=== PATIENT | female | born 1935 | race Caucasian/White ===

== ENCOUNTER 2020-02-25 13:42 | Outpatient (CLI) | payer MEDICARE, SELFPAY ==
--- NOTE | 2020-02-25 13:51 | USCV_ITS ---
Rebeka Anderson Age: 84 Gender: F : 1935 Exam Date: 02/25/2020 14:07 Ordering Phys: Arvin Lai MD (Andy) ([email or web address] [email or web address] Technologist: Rojas Escobar Exam Location: [facility] [place] Indication: CAROTID STENOSIS Risk Factors: Previous Vascular Surgery: R CEA Right Brachial BP: / Left Brachial BP: / Right Left Velocity (cm/s) Spectral Plaque Velocity (cm/s) Spectral Plaque Syst/Diast Broadening Syst/Diast Broadening 83.10/ 4.70 Prox CCA 93.70 / 14.30 108.80/15.00 Mid CCA 150.70/ 14.00 125.70/8.80 Distal CCA 98.60 / 14.50 186.40/28.00 Prox ICA 103.90/ 14.50 132.10/20.20 Mid ICA 123.60/ 28.90 108.80/17.10 Distal ICA 64.00 / 14.90 140.00 ECA 113.10 1.21 ICA/CCA 0.82 Retrograde Vertebral Antegrade 30.90/ 14.30 cm/s 80.20/ 21.00 cm/s Bi Subclavian Bi 223.1 176.2 0 0 CONCLUSIONS Right ICA stenosis 50-69%. Moderate atheromatous plaque right carotid bulb/ICA. Left ICA stenosis <50%. Mild atheromatous plaque left carotid bulb/ICA. 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 Luis Segura MD (Electronically Signed) Final Date: 25 February 2020 15:27 S
== END 2020-02-25 13:43 | disposition home or self-care (01) ==
LOC: US 13:43
PROVIDERS: PCP Family Medicine; Visit Provider Thoracic Surgery (Cardiothoracic Vascular Surgery)
DX: I65.23 Occlusion and stenosis of bilateral carotid arteries (principal)
CPT/HCPCS: 93880

== ENCOUNTER 2020-10-22 16:47 | Emergency (ER) | payer MEDICARE, SELFPAY ==
[2020-10-22 16:48] VITALS: BP 191/80; PULSE 72; RESP 18; TEMP 36.8; O2SAT 95; BMI 40.6
--- NOTE | 2020-10-22 17:11 | W.ED.FALL ---
HPI - Fall General: Chief Complaint: Fall Stated Complaint: fall/ hallucinating Time Seen by Provider: 10/22/20 17:11 History of Present Illness: HPI Narrative: Patient is a 85-year-old female comes to the ED via EMS after having a fall. Patient's granddaughter is present in the ED room and helping provide history. Granddaughter says that she came to her house today and found her down on the floor. Patient states that she fell in the bathroom and is unsure on what time today she fell. She says what caused her fall was standing up too quickly and then she lost her balance. She says she has had this happen to her in the past. Granddaughter stated that she talk to patient on Tuesday evening her fall had 2 of occurred sometime after that. She states that today while she was laying on the floor a contractor hired by her landlord came in and cleaned her river and carpets and ignored her and did not help her. granddaughter doubts that this actually occurred and thinks she was having some hallucinations while laying on the floor. Patient is unsure if she hit her head or lost any consciousness. She does complain of having some neck pain and lower back pain and left hip pain. Patient lives at home alone in a duplex and uses a walker or cane to ambulate. Associated symptoms-after fall: Reports neck pain; Denies abdominal pain, chest pain, headache(s) or hematuria Review of Systems Const: Denies: fever(s), chills or fatigue Eyes: Denies: change in vision or eye discomfort ENMT: Denies: throat pain, odynophagia, nasal discharge or nasal congestion Card: Denies: chest pain, palpitations, edema, swelling of feet/ankles, dyspnea on exertion or orthopnea Resp: Denies: dyspnea, productive cough or non-productive cough GI: Denies: abdominal pain, nausea, vomiting, diarrhea, constipation or hematochezia : Denies: flank pain, dysuria or hematuria Musc: Reports: neck pain, back pain and extremity pain (left hip pain); Denies: extremity swelling Skin/Breast: Denies: rash or new lesions Neuro: Denies: headache(s), numbness in extremities or weakness in extremities PFS ED PFSH: Medical History Carotid stenosis Family History Mother Hypertension Social History Smoking and tobacco status: former smoker Alcohol intake: never Physical Exam Const: COMMON NORMALS: no acute distress, patient oriented x3 and alert GENERAL APPEARANCE: cooperative and comfortable HENMT: COMMON NORMALS: normocephalic HEAD & SCALP: normocephalic; no Quesada's sign and no raccoon eyes MOUTH: Normal oral and palatal mucosa present THROAT: posterior oropharynx normal and uvula midline Eye: COMMON NORMALS: Equal, round and reactive pupils present and EOMs intact bilaterally PUPIL: Yes Equal, round and reactive pupils present Neck/C-Spine: COMMON NORMALS: supple GENERAL: Yes normal visual inspection CERVICAL SPINE: Yes pain with cervical ROM Resp: COMMON NORMALS: normal respiratory effort, No retractions, No use of accessory muscles and clear to auscultation bilaterally AUSCULTATION: clear to auscultation bilaterally Cardio: COMMON NORMALS: regular rate, regular rhythm, S1 normal heart sound present, S2 normal heart sound present, No gallops present (Cardio), No clicks present (Cardio), No murmurs present (Cardio) and Peripheral pulses 2+ throughout RATE: regular rate RHYTHM: regular rhythm HEART SOUNDS: S1 normal heart sound present and S2 normal heart sound present PERIPHERAL PULSES: Peripheral pulses 2+ throughout GI: COMMON NORMALS: Normal to inspection, nondistended, normoactive bowel sounds present, Soft to palpation, non-tender and no masses PALPATION: Yes Soft to palpation : COMMON NORMALS: Yes no CVA tenderness BLADDER/KIDNEY EXAM: Yes no CVA tenderness Back/Pelvis: COMMON NORMALS: no CVA tenderness Extremity: COMMON NORMALS: normal to inspection Neuro: KARYN COMA SCALE: document GCS findings Karyn coma scale eye opening: Spontaneous Cavour coma scale verbal response: Orientated Cavour coma scale motor response: Obey commands Cavour coma scale total score: 15 COMMON NORMALS: patient oriented x3, CN's II-XII intact bilaterally, moves all extremities, no focal motor deficits and no sensory deficits noted SENSORIUM/ORIENTATION: Yes alert OTHER: Patient able to answer all my orientation questions correctly and appears to be at her normal mental state. Skin: GENERAL SKIN EXAM: dry skin Course ED course: Patient's granddaughter is concerned a little for patient's mental status. Patient is alert and oriented x3 and will answer questions accordingly but has some moments of hallucination type comments. Granddaughter said that she or another family member will be with patient [id number] after discharged from the ED to help take care of her. Granddaughter did say patient has had some memory issues and is unsure if she has any sundowner type symptoms recently because she usually does not see patient in the evenings or at night and usually visits patient during the day. Vital Signs: Vital signs: Vital Signs Temperature 98.2 F 10/22/20 16:48 Pulse Rate 90 10/22/20 22:36 Respiratory Rate 20 H 10/22/20 22:36 Blood Pressure 168/88 10/22/20 22:36 Pulse Oximetry 95 10/22/20 20:28 MDM - Fall MDM Narrative: Medical decision making narrative: Patient is an 85-year-old female comes to the ED via EMS after having a fall. Granddaughter is present. Granddaughter found patient down on the ground today and patient was down for unknown amount of time but granddaughter spoke to patient on Tuesday evening so fall occurred sometime after that. her main complaint currently is left hip pain, neck pain and lower back pain. Patient's neuro exam was normal and GCS score 15 and she was alert and oriented x3. She has some cervical range of motion tenderness and the rest of exam is benign. Vitals stable. Left hip x-ray shows no acute fractures or findings. CT of head showed no acute findings. CT of cervical spine showed no cervical spine fractures, but noted Minimally displaced right T3 transverse process fracture. CT of lumbar spine showed degenerative disease, but no acute fractures. UA was unremarkable. Patient was diagnosed with fracture of transverse process of thoracic vertebrae due to fall at home. Patient was put in a CTLSO brace and I placed an order with case management to refer patient to orthopedic spine doctor. Patient's granddaughter and other family members are going to stay with the patient [id number] at home to help her over the next week. Patient has a doctor's appointment tomorrow with liquified natural gas specialist and then I told patient to see PCP within the next week as well. I told patient and granddaughter that ed case manager will be contacting them next several days set up an appoint with orthopedic spine doctor. Return to ED precautions given. Patient and patient's granddaughter both understood and agreed with plan. Lab Data: Labs: Lab Results 10/22/20 Range/Units 17:42 Urine Color Yellow (Yellow) Urine Appearance Cloudy (CLEAR) Urine pH 5 (5-7) Ur Specific Gravit y 1.020 (1.005-1.030) Urine Protein 1+ H (Negative) Urine Glucose (UA) Norm (Normal) Urine Ketones 2+ H (Negative) Urine Blood 3+ H (Negative) Urine Nitrate Negative (Negative) Urine Bilirubin 1+ H (Negative) Urine Urobilinogen 1 H (Negative) mg/dL Ur Leukocyte Jeniffer ase Negative (Negative) Urine RBC 0-4 H (0-2) /hpf Urine WBC 0-4 H (0-5) /hpf Ur Squamous Epith Cells 10-15 H (0-5) /hpf Amorphous Sediment Not Reportable Urine Bacteria 1+ H (NONE) /hpf Imaging Data^: Xray Ortho: Attestation: I personally reviewed and interpreted this imaging study as follows: Radiologist's impression: [employer] [address] XRay Report Signed Patient: Rebeka Anderson Unit #: [id number] : 1935 Age/Sex: 85 / F ADM Date: 10/22/20 Loc: ER Room/Bed: Attending Dr: Ordering Provider/Ordering MD: John Paul Hernandez Date of Service: 10/22/20 Procedure(s): XR hip LT 2-3V wo/w pel* [id number] Accession Number(s): [id number] Report Number: [id number] PROCEDURE INFORMATION: Exam: XR Left Hip Exam date and time: 10/22/2020 5:33 PM Age: 85 years old Clinical indication: Injury or trauma; Fall; Blunt trauma (contusions or hematomas); Left; Hip; Additional info: Fall with hip pain TECHNIQUE: Imaging protocol: XR Left hip. Views: 2 or 3 views hip with pelvis when performed. COMPARISON: CT abdomen pelvis w con* [id number] 11/30/2017 12:06 PM FINDINGS: Bones/joints: Mild degenerative changes of the left hip joint. The bones are intact and in normal alignment. Soft tissues: Unremarkable. Vasculature: Arterial calcifications. Numerous calcified phleboliths in the pelvis. XR/XR hip LT 2-3V wo/w pel* [id number] IMPRESSION: No acute finding. Dictated By: Nirmal Siegel Signed By: Nirmal Siegel Signed Date/Time: 10/22/201825 DD/ 24 CT Head: Attestation: I personally reviewed and interpreted this imaging study as follows: Radiologist's impression: [employer] [address] [address] Scan Report Signed Patient: Rebeka Anderson Unit #: [id number] : 1935 Age/Sex: 85 / F ADM Date: 10/22/20 Loc: ER Room/Bed: Attending Dr: Ordering Provider/Ordering MD: John Paul Hernandez Date of Service: 10/22/20 Procedure(s): CT head wo con* [id number] Accession Number(s): [id number] Report Number: [id number] PROCEDURE INFORMATION: Exam: CT Head Without Contrast Exam date and time: 10/22/2020 5:37 PM Age: 85 years old Clinical indication: Injury or trauma; Blunt trauma (contusions or hematomas); Injury details: Fall x Tuesday found down today. Unknown loc, sore neck; Prior surgery; Surgery type: Carotid, arterial arther TECHNIQUE: Imaging protocol: Computed tomography of the head without contrast. Radiation optimization: All CT scans at this facility use at least one of these dose optimization techniques: automated exposure control; mA and/or kV adjustment per patient size (includes targeted exams where dose is matched to clinical indication); or iterative reconstruction. COMPARISON: CT head wo con* [id number] 12/13/2017 1:03 AM RADIATION DOSE METRICS: Total DLP (mGy-cm): 792.46 FINDINGS: Brain: Mild cortical volume loss. Minimal hypodensities in supratentorial periventricular and subcortical white matter, consistent with microangiopathy. No intracranial hemorrhage. Cerebral ventricles: No ventriculomegaly. Bones/joints: Unremarkable. No acute fracture. Paranasal sinuses: Opacification of the bilateral sphenoid sinuses is most likely inflammatory. The other sinuses are clear. Mastoid air cells: Visualized mastoid air cells are well aerated. Orbital cavity: Prior cataract surgery. Vasculature: No hyperdense artery. Soft tissues: Unremarkable. CT/CT head wo con* [id number] IMPRESSION: 1. No acute intracranial abnormality. Radiation Dose CTDIVOL = (mGy): DLP = 792.46 (mGy-cm) Dictated By: Nirmal Siegel Signed By: Nirmal Siegel Signed Date/Time: 10/22/201912 DD/ [address]: Attestation: I personally reviewed and interpreted this imaging study as follows: Radiologist's impression: [address] [address] [address] Scan Report Signed Patient: Rebeka Anderson Unit #: [id number] : 1935 Age/Sex: 85 / F ADM Date: 10/22/20 Loc: ER Room/Bed: Attending Dr: Ordering Provider/Ordering MD: John Paul Hernandez Date of Service: 10/22/20 Procedure(s): CT lumbar spine wo con* [id number] Accession Number(s): [id number] Report Number: [id number] PROCEDURE INFORMATION: Exam: CT Lumbar Spine Without Contrast Exam date and time: 10/22/2020 5:37 PM Age: 85 years old Clinical indication: Injury or trauma; Blunt trauma (contusions or hematomas); Patient HX: Fall x Tuesday found down today. Pain in left hip; Additional info: Fall with low back pain TECHNIQUE: Imaging protocol: Computed tomography images of the lumbar spine without contrast. Radiation optimization: All CT scans at this facility use at least one of these dose optimization techniques: automated exposure control; mA and/or kV adjustment per patient size (includes targeted exams where dose is matched to clinical indication); or iterative reconstruction. COMPARISON: CT abdomen pelvis w con* [id number] 11/30/2017 12:06:01 PM RADIATION DOSE METRICS: Total DLP (mGy-cm): 2033. FINDINGS: Vertebrae: Sacralization of L5. Stable mild anterior degenerative subluxation of L4 on L5. Stable chronic mild central depression of the superior T12 and L2 endplates. No acute fracture identified. Facets are intact with hypertrophic degenerative changes. L1-L2: Trace disc bulge. Degenerative facets. Moderate right and mild left foraminal stenosis. No central canal stenosis. L2-L3: Trace disc bulge. Degenerative facets. Mild bilateral foraminal stenosis. Mild central canal stenosis. L3-L4: Mild disc bulge. Degenerative facets. Mild left and severe right foraminal stenosis. Moderate-severe central canal stenosis. L4-L5: Mild disc bulge. No significant foraminal or central canal stenosis. L5-S1: No significant disc protrusion. No severe spinal canal stenosis. No significant neural foraminal narrowing. Kidneys and ureters: Fluid density cyst in the left kidney, Hounsfield units less than 20. No follow-up imaging is recommended. Soft tissues: Unremarkable. CT/CT lumbar spine wo con* [id number] IMPRESSION: 1. No acute fracture identified. 2. Stable central depression of the superior T12 and L2 endplates. 3. Multilevel degenerative changes. COMMENTS: Consistent with the [employer] [place] [employer]'s Incidental Findings Committee white paper (J Am Madelaine Radiol 2018): Any incidental renal lesion less than 1 cm or classified as too small to characterize, or any incidental cystic renal lesion characterized as simple-appearing, is likely benign. No follow-up imaging is recommended for these lesions per consensus recommendations based on imaging criteria. Radiation Dose CTDIVOL = (mGy): DLP = 2034.08 (mGy-cm) Dictated By: Nirmal Siegel Signed By: Nirmal Siegel Signed Date/Time: 10/22/201928 DD/ [address] [address] [address] Scan Report Signed Patient: Rebeka Anderson Unit #: [id number] : 1935 Age/Sex: 85 / F ADM Date: 10/22/20 Loc: ER Room/Bed: Attending Dr: Ordering Provider/Ordering MD: John Paul Hernandez Date of Service: 10/22/20 Procedure(s): CT cervical spin wo con* [id number] Accession Number(s): [id number] Report Number: [id number] PROCEDURE INFORMATION: Exam: CT Cervical Spine Without Contrast Exam date and time: 10/22/2020 5:37 PM Age: 85 years old Clinical indication: Injury or trauma; Blunt trauma; Injury details: Fall x Tuesday found down today. Unknown loc, sore neck; Prior surgery; Surgery type: Carotid; Additional info: Fall with neck pain TECHNIQUE: Imaging protocol: Computed tomography images of the cervical spine without contrast. Radiation optimization: All CT scans at this facility use at least one of these dose optimization techniques: automated exposure control; mA and/or kV adjustment per patient size (includes targeted exams where dose is matched to clinical indication); or iterative reconstruction. COMPARISON: CT Cervical Spine wo* [id number] 12/13/2017 1:06 AM RADIATION DOSE METRICS: Total DLP (mGy-cm): 569.88 FINDINGS: Bones/joints: The vertebral body alignment and stature is intact. The facets are intact with hypertrophic degenerative changes. Asymmetric hypertrophic spurring of the right C1-C2 facet. Subtle minimally displaced fracture through the base of the right T3 transverse process. Discs/Spinal canal/Neural foramina: Disc space narrowing at C6-C7 with degenerative endplate changes. Multilevel mild bony foraminal stenosis. No significant central canal stenosis identified. Thyroid: 0.9 cm nodule in the left thyroid lobe. No ultrasound follow-up recommended. Lungs: Lung apices are normal. Vasculature: Left carotid bulb calcifications. Soft tissues: Surgical clips in the right neck, possibly prior endarterectomy. CT/CT cervical spin wo con* [id number] IMPRESSION: 1. No cervical spine fracture identified. 2. Minimally displaced right T3 transverse process fracture. COMMENTS: Consistent with the [employer] [place] [employer]'s Incidental Findings Committee white paper (J Am Madelaine Radiol 2015): In patients aged 35 years and older with an incidental thyroid nodule equal to or greater than 1.[address], MRI or extrathyroidal US, further evaluation with dedicated thyroid US is recommended for patients with normal life expectancy and without comorbidities. For smaller nodules without suspicious features, no further evaluation or follow up is recommended. Radiation Dose CTDIVOL = (mGy): DLP = 569.88 (mGy-cm) Dictated By: Nirmal Siegel Signed By: Nirmal Siegel Signed Date/Time: 10/22/201922 DD/ 21 Discharge Plan Discharge Patient Disposition: Home Clinical Impression: Fracture of transverse process of thoracic vertebra Qualifiers: Encounter type: initial encounter Fracture type: closed Qualified Code(s): S22.009A - Unspecified fracture of unspecified thoracic vertebra, initial encounter for closed fracture Fall as cause of accidental injury at home as place of occurrence Qualifiers: Encounter type: initial encounter Qualified Code(s): W19.XXXA - Unspecified fall, initial encounter Condition: Stable Prescriptions: No Action metoprolol tartrate 25 mg tablet 25 mg PO BID RF: 0 metformin 500 mg tablet 500 mg PO BID RF: 0 alprazolam 0.25 mg tablet 0.25 mg PO BID RF: 0 sertraline 100 mg tablet 100 mg PO DAILY RF: 0 Discharge Orders: Discharge ED (Routine); Ordered 10/22/20 Ordered By: John Paul Hernandez Referrals: Alirio Dubon, [Primary Care Provider] - Discharge Diet: Regular Discharge Activity: Limit activity as instructed Patient Instructions: Thoracolumbar Fracture (ED) Activity Restrictions/Additional Instructions: Follow-up with your orthospine doctor at your previously scheduled appointment tomorrow morning. Continue taking all home medications as prescribed. Wear back brace as instructed by physical therapist. Rest and limit activity and lifting until cleared by your doctor. Return to the ER or your medical provider if condition worsens. Please read and understand discharge instructions. Thank you for choosing [facility] for your healthcare needs today. Please realize this is an emergency room and that we are providing you with a medical screening exam and this may not be complete and all inclusive of all the testing and or work up that you may need to determine your ailment or severity of your illness. It is very important that you follow up as instructed or that you return to the Emergency Department should you have concerns or if your condition changes or worsens in any way. Coding Level of Care Code ED Place Change Roof Bolter for Rocio Salmeron Exam Comprehensive
--- NOTE | 2020-10-22 17:32 | CTR_ITS ---
PROCEDURE INFORMATION: Exam: CT Cervical Spine Without Contrast Exam date and time: 10/22/2020 5:37 PM Age: 85 years old Clinical indication: Injury or trauma; Blunt trauma; Injury details: Fall x Tuesday found down today. Unknown loc, sore neck; Prior surgery; Surgery type: Carotid; Additional info: Fall with neck pain TECHNIQUE: Imaging protocol: Computed tomography images of the cervical spine without contrast. Radiation optimization: All CT scans at this facility use at least one of these dose optimization techniques: automated exposure control; mA and/or kV adjustment per patient size (includes targeted exams where dose is matched to clinical indication); or iterative reconstruction. COMPARISON: CT Cervical Spine wo* [id number] 12/13/2017 1:06 AM RADIATION DOSE METRICS: Total DLP (mGy-cm): 569.88 FINDINGS: Bones/joints: The vertebral body alignment and stature is intact. The facets are intact with hypertrophic degenerative changes. Asymmetric hypertrophic spurring of the right C1-C2 facet. Subtle minimally displaced fracture through the base of the right T3 transverse process. Discs/Spinal canal/Neural foramina: Disc space narrowing at C6-C7 with degenerative endplate changes. Multilevel mild bony foraminal stenosis. No significant central canal stenosis identified. Thyroid: 0.9 cm nodule in the left thyroid lobe. No ultrasound follow-up recommended. Lungs: Lung apices are normal. Vasculature: Left carotid bulb calcifications. Soft tissues: Surgical clips in the right neck, possibly prior endarterectomy. CT/CT cervical spin wo con* [id number] IMPRESSION: 1. No cervical spine fracture identified. 2. Minimally displaced right T3 transverse process fracture. COMMENTS: Consistent with the [place] [employer]'s Incidental Findings Committee white paper (J Am Madelaine Radiol 2015): In patients aged 35 years and older with an incidental thyroid nodule equal to or greater than 1.[address], MRI or extrathyroidal US, further evaluation with dedicated thyroid US is recommended for patients with normal life expectancy and without comorbidities. For smaller nodules without suspicious features, no further evaluation or follow up is recommended. Radiation Dose CTDIVOL = (mGy): DLP = 569.88 (mGy-cm)
--- NOTE | 2020-10-22 17:32 | CTR_ITS ---
PROCEDURE INFORMATION: Exam: CT Head Without Contrast Exam date and time: 10/22/2020 5:37 PM Age: 85 years old Clinical indication: Injury or trauma; Blunt trauma (contusions or hematomas); Injury details: Fall x Tuesday found down today. Unknown loc, sore neck; Prior surgery; Surgery type: Carotid, arterial arther TECHNIQUE: Imaging protocol: Computed tomography of the head without contrast. Radiation optimization: All CT scans at this facility use at least one of these dose optimization techniques: automated exposure control; mA and/or kV adjustment per patient size (includes targeted exams where dose is matched to clinical indication); or iterative reconstruction. COMPARISON: CT head wo con* [id number] 12/13/2017 1:03 AM RADIATION DOSE METRICS: Total DLP (mGy-cm): 792.46 FINDINGS: Brain: Mild cortical volume loss. Minimal hypodensities in supratentorial periventricular and subcortical white matter, consistent with microangiopathy. No intracranial hemorrhage. Cerebral ventricles: No ventriculomegaly. Bones/joints: Unremarkable. No acute fracture. Paranasal sinuses: Opacification of the bilateral sphenoid sinuses is most likely inflammatory. The other sinuses are clear. Mastoid air cells: Visualized mastoid air cells are well aerated. Orbital cavity: Prior cataract surgery. Vasculature: No hyperdense artery. Soft tissues: Unremarkable. CT/CT head wo con* [id number] IMPRESSION: 1. No acute intracranial abnormality. Radiation Dose CTDIVOL = (mGy): DLP = 792.46 (mGy-cm)
--- NOTE | 2020-10-22 17:32 | CTR_ITS ---
PROCEDURE INFORMATION: Exam: CT Lumbar Spine Without Contrast Exam date and time: 10/22/2020 5:37 PM Age: 85 years old Clinical indication: Injury or trauma; Blunt trauma (contusions or hematomas); Patient HX: Fall x Tuesday found down today. Pain in left hip; Additional info: Fall with low back pain TECHNIQUE: Imaging protocol: Computed tomography images of the lumbar spine without contrast. Radiation optimization: All CT scans at this facility use at least one of these dose optimization techniques: automated exposure control; mA and/or kV adjustment per patient size (includes targeted exams where dose is matched to clinical indication); or iterative reconstruction. COMPARISON: CT abdomen pelvis w con* [id number] 11/30/2017 12:06:01 PM RADIATION DOSE METRICS: Total DLP (mGy-cm): 2033. FINDINGS: Vertebrae: Sacralization of L5. Stable mild anterior degenerative subluxation of L4 on L5. Stable chronic mild central depression of the superior T12 and L2 endplates. No acute fracture identified. Facets are intact with hypertrophic degenerative changes. L1-L2: Trace disc bulge. Degenerative facets. Moderate right and mild left foraminal stenosis. No central canal stenosis. L2-L3: Trace disc bulge. Degenerative facets. Mild bilateral foraminal stenosis. Mild central canal stenosis. L3-L4: Mild disc bulge. Degenerative facets. Mild left and severe right foraminal stenosis. Moderate-severe central canal stenosis. L4-L5: Mild disc bulge. No significant foraminal or central canal stenosis. L5-S1: No significant disc protrusion. No severe spinal canal stenosis. No significant neural foraminal narrowing. Kidneys and ureters: Fluid density cyst in the left kidney, Hounsfield units less than 20. No follow-up imaging is recommended. Soft tissues: Unremarkable. CT/CT lumbar spine wo con* [id number] IMPRESSION: 1. No acute fracture identified. 2. Stable central depression of the superior T12 and L2 endplates. 3. Multilevel degenerative changes. COMMENTS: Consistent with the [employer]'s Incidental Findings Committee white paper (J Am Madelaine Radiol 2018): Any incidental renal lesion less than 1 cm or classified as too small to characterize, or any incidental cystic renal lesion characterized as simple-appearing, is likely benign. No follow-up imaging is recommended for these lesions per consensus recommendations based on imaging criteria. Radiation Dose CTDIVOL = (mGy): DLP = 2034.08 (mGy-cm)
--- NOTE | 2020-10-22 17:32 | XRR_ITS ---
PROCEDURE INFORMATION: Exam: XR Left Hip Exam date and time: 10/22/2020 5:33 PM Age: 85 years old Clinical indication: Injury or trauma; Fall; Blunt trauma (contusions or hematomas); Left; Hip; Additional info: Fall with hip pain TECHNIQUE: Imaging protocol: XR Left hip. Views: 2 or 3 views hip with pelvis when performed. COMPARISON: CT abdomen pelvis w con* [id number] 11/30/2017 12:06 PM FINDINGS: Bones/joints: Mild degenerative changes of the left hip joint. The bones are intact and in normal alignment. Soft tissues: Unremarkable. Vasculature: Arterial calcifications. Numerous calcified phleboliths in the pelvis. XR/XR hip LT 2-3V wo/w pel* [id number] IMPRESSION: No acute finding.
[2020-10-22 18:23] LABS: Urine Appearance Cloudy (CLEAR); Urine Color Yellow (Yellow)
[2020-10-22 18:25] LABS: Glucose Urine UA Norm (Normal); Protein Urine 1+ (Negative); pH Urine 5 (5-7)
[2020-10-22 18:26] LABS: Bilirubin Urine 1+ (Negative); Ketones Urine 2+ (Negative); Nitrate Urine Negative (Negative); Urobilinogen Urine 1 mg/dL (Negative)
[2020-10-22 18:27] LABS: Blood Urine 3+ (Negative); Leukocyte Esterase Urine Negative (Negative)
[2020-10-22 18:41] LABS: Add Urine Culture? No; Bacteria Urine 1+ /hpf; RBC Urine 0-4 /hpf (0-2); WBC Urine 0-4 /hpf (0-5)
[2020-10-22] MEDS: acetaminophen 325 mg Tablet 650 MG PO (19:56)
[2020-10-22 20:28] VITALS: BP 172/80; O2SAT 95
[2020-10-22 22:36] VITALS: BP 168/88; PULSE 90; RESP 20
--- NOTE | 2020-10-23 10:35 | DCPLANNER ---
enterprise applications manager had message to schedule a follow up appointment for patient with ortho. enterprise applications manager called the ortho clinic, spoke with Tatyana, gave clinic patients information. enterprise applications manager was told that patients information will be printed and reviewed. Clinic will call patient with appointment information.
--- NOTE | 2020-10-28 15:15 | DCPLANNER ---
Patient has a follow up appointment scheduled for October, at 3:[address] Mays at [facility]. Clinic will call patient with appointment information.
--- NOTE | 2020-11-20 15:28 | DCPLANNER ---
Patient had a followup appointment scheduled for 10.28.[address] Mays at [facility] - patient did attend appointment.
== END 2020-10-22 22:30 | disposition home or self-care (01) ==
PROVIDERS: Emergency Provider Physician Assistant; PCP Family Medicine
DX: S22.038A Other fracture of third thoracic vertebra, initial encounter for closed fracture (principal); W19.XXXA Unspecified fall, initial encounter; Z87.891 Personal history of nicotine dependence
CPT/HCPCS: 70450; 72125; 72131; 73502; 81001; 99283

== ENCOUNTER 2020-10-28 16:44 | Outpatient (CLI) | payer MEDICARE, SELFPAY ==
--- NOTE | 2020-10-28 | USR_ITS ---
PROCEDURE INFORMATION: Exam: US Duplex Right Lower Extremity Veins, Limited Exam date and time: 10/28/2020 5:10 PM Age: 85 years old Clinical indication: Pain; Leg, lower; Right; Additional info: Rle pain TECHNIQUE: Imaging protocol: Real-time Duplex ultrasound of the Right Lower Extremity with 2-D cast scale, color Doppler flow and spectral waveform analysis with image documentation. Limited exam was focused on the right lower extremity veins. Total images: 1989 COMPARISON: No relevant prior studies available. FINDINGS: Right deep veins: Subacute appearing nonocclusive thrombus distal right popliteal vein extending into the proximal right peroneal vein. Incomplete compression of the distal right superficial femoral vein suggesting the potential for nonocclusive acute to early subacute thrombus. Right superficial veins: Unremarkable. Saphenofemoral junction is patent without thrombus. Soft tissues: Unremarkable. US/[place] [id number] IMPRESSION: 1. Findings raising suspicion for subacute appearing nonocclusive deep venous thrombosis distal right popliteal vein extending into the proximal right peroneal vein. 2. Incomplete compression of the distal right superficial femoral vein.
== END 2020-10-28 16:45 | disposition home or self-care (01) ==
LOC: RAD 16:58
PROVIDERS: PCP Family Medicine; Visit Provider Orthopaedic Surgery
DX: R60.0 Localized edema (principal); M79.661 Pain in right lower leg
CPT/HCPCS: 93971

== ENCOUNTER 2020-10-28 17:28 | Emergency (ER) | payer MEDICARE, SELFPAY ==
[2020-10-28 17:42] VITALS: BP 158/78; PULSE 59; RESP 18; TEMP 36.8; O2SAT 97; BMI 31.2
--- NOTE | 2020-10-28 17:59 | ED_ITS ---
HPI - General Adult General: Chief complaint: General Medical Stated complaint: SENT BY DR OBTELLO FOR DVT MEDICATION Time Seen by Provider: 10/28/20 17:39 History of Present Illness: HPI narrative: Patient is an 85-year-old female that comes to the ED with right lower extremity swelling and pain. Patient was sent to get an ultrasound at [facility] today by Dr. Botello due to right lower extremity swelling and pain. The ultrasound showed a DVT in the popliteal vein. Ultrasound was unable to discharge patient unless on meds so she was sent here to the ED to check in to be started on a blood thinner. She denies any chest pain, shortness of breath or hemoptysis. She states that the swelling and pain in her right leg started within the last couple days. Associated symptoms: Deny chest pain, dyspnea, headache(s), nausea, rash, palpitations or vomiting Review of Systems Const: Denies: fever(s), chills or fatigue Eyes: Denies: change in vision or eye discomfort ENMT: Denies: throat pain, odynophagia, nasal discharge or nasal congestion Card: Denies: chest pain, palpitations, edema, swelling of feet/ankles, dyspnea on exertion or orthopnea Resp: Denies: dyspnea, productive cough or non-productive cough GI: Denies: abdominal pain, nausea, vomiting, diarrhea, constipation or hematochezia : Denies: flank pain, dysuria or hematuria Musc: Reports: extremity pain (Right lower extremity ) and extremity swelling (Right lower extremity); Denies: neck pain or back pain Skin/Breast: Denies: rash or new lesions Neuro: Denies: headache(s), numbness in extremities or weakness in extremities [facility] ED PFSH: Medical History Carotid stenosis Family History Mother Hypertension Brother Aneurysm Sister Aneurysm Social History Smoking and tobacco status: former smoker Alcohol intake: never Physical Exam Const: COMMON NORMALS: no acute distress, patient oriented x3 and alert GENERAL APPEARANCE: cooperative and comfortable HENMT: COMMON NORMALS: normocephalic HEAD & SCALP: normocephalic MOUTH: Normal oral and palatal mucosa present THROAT: posterior oropharynx normal and uvula midline Neck/C-Spine: COMMON NORMALS: supple GENERAL: Yes normal visual inspection Resp: COMMON NORMALS: normal respiratory effort, No retractions, No use of accessory muscles and clear to auscultation bilaterally AUSCULTATION: clear to auscultation bilaterally Cardio: COMMON NORMALS: regular rate, regular rhythm, S1 normal heart sound present, S2 normal heart sound present, No gallops present (Cardio), No clicks present (Cardio), No murmurs present (Cardio) and Peripheral pulses 2+ throughout RATE: regular rate RHYTHM: regular rhythm HEART SOUNDS: S1 normal heart sound present and S2 normal heart sound present PERIPHERAL PULSES: Peripheral pulses 2+ throughout GI: COMMON NORMALS: Normal to inspection, nondistended, normoactive bowel sounds present, Soft to palpation, non-tender and no masses PALPATION: Yes Soft to palpation : COMMON NORMALS: Yes no CVA tenderness BLADDER/KIDNEY EXAM: Yes no CVA tenderness Back/Pelvis: COMMON NORMALS: no CVA tenderness Extremity: GENERAL: Yes calf tenderness (Right calf tenderness) and Yes edema (2+ pitting edema to right lower extremity) Neuro: COMMON NORMALS: patient oriented x3 and moves all extremities SENSORIUM/ORIENTATION: Yes alert Skin: GENERAL SKIN EXAM: dry skin Course Vital Signs: Vital signs: Vital Signs Temperature 98.3 F 10/28/20 17:42 Pulse Rate 59 L 10/28/20 17:42 Respiratory Rate 18 10/28/20 17:42 Blood Pressure 158/78 10/28/20 17:42 Pulse Oximetry 97 10/28/20 17:42 MDM - General Adult 2 MDM Narrative: Medical decision making narrative: Patient is an 85-year-old female who was sent to the ED after a outpatient ultrasound of right lower extremity showed a DVT. She was sent here to the ED to get put on a prescription of blood thinners. Patient has right lower extremity edema and right calf tenderness. Denies chest pain, shortness of breath or hemoptysis. I reviewed the ultrasound venous duplex report showed that she has a right popliteal vein thrombosis. Patient was given a dose of Lovenox while here in the ED and and discharged home with a prescription for Eliquis. She was told to follow-up with her PCP in 7 to 10 days for reevaluation. Return to ED precautions given. Patient understood agree with plan. Imaging Data^: US Vascular: Attestation: I personally reviewed and interpreted this imaging study as follows: Radiologist's impression: Ran [id number] [facility].[place], [place] [address]Aeaaveoehk ReportSigned with Addenda Patient: Rebeka Anderson #: [id number]: 1935cct#:[id number]/Sex: 85 / FADM Date: 10/28/20Loc: RADRoom/Bed:Attending Dr: Steven Botello DO Ordering Provider/Ordering MD: Steven Botello DO Date of Service: 10/28/20 Procedure(s): [place] [address] Accession Number(s): [id number] Report Number: [id number] ADDENDUM US/[place] [address] THIS REPORT CONTAINS FINDINGS THAT MAY BE CRITICAL TO PATIENT CARE. The findings were verbally communicated via telephone conference with Steven Botello at 5:58 PM CDT on 10/28/2020. The findings were acknowledged and understood. Addendum Dictated By: Enrrique VallecilloAddendum Signed By: Ghassan Vallecillo Date/Time:10/28/20 1805Addendum Cosigned By: PROCEDURE INFORMATION: Exam: US Duplex Right Lower Extremity Veins, Limited Exam date and time: 10/28/2020 5:10 PM Age: 85 years old Clinical indication: Pain; Leg, lower; Right; Additional info: Rle pain TECHNIQUE: Imaging protocol: Real-time Duplex ultrasound of the Right Lower Extremity with 2-D cast scale, color Doppler flow and spectral waveform analysis with image documentation. Limited exam was focused on the right lower extremity veins. Total images: 1989 COMPARISON: No relevant prior studies available. FINDINGS: Right deep veins: Subacute appearing nonocclusive thrombus distal right popliteal vein extending into the proximal right peroneal vein. Incomplete compression of the distal right superficial femoral vein suggesting the potential for nonocclusive acute to early subacute thrombus. Right superficial veins: Unremarkable. Saphenofemoral junction is patent without thrombus. Soft tissues: Unremarkable. US/[place] [id number] IMPRESSION: 1. Findings raising suspicion for subacute appearing nonocclusive deep venous thrombosis distal right popliteal vein extending into the proximal right peroneal vein. 2. Incomplete compression of the distal right superficial femoral vein. Dictated By:Ghassan Vallecillo By:Ghassan Vallecillo Date/Time:10/28/201749DD/ 48 Discharge Plan Discharge Patient Disposition: Home Clinical Impression: DVT (deep venous thrombosis) Qualifiers: DVT location: lower extremity Affected thrombotic vein of extremity: popliteal Chronicity: acute Laterality: right Qualified Code(s): I82.431 - Acute embolism and thrombosis of right popliteal vein Condition: Stable Prescriptions: New apixaban 5 mg tablet 5 mg PO BID Qty: 60 RF: 0 No Action metoprolol tartrate 25 mg tablet 25 mg PO BID RF: 0 metformin 500 mg tablet 500 mg PO BID RF: 0 alprazolam 0.25 mg tablet 0.25 mg PO BID RF: 0 sertraline 100 mg tablet 100 mg PO DAILY RF: 0 Discharge Orders: Discharge ED (Routine); Ordered 10/28/20 Ordered By: John Paul Hernandez Referrals: Alirio Dubon DO [Primary Care Provider] - Discharge Diet: Regular Discharge Activity: Increase activity as tolerated Patient Instructions: Deep Venous Thrombosis (ED) Activity Restrictions/Additional Instructions: Follow-up with medical provider in 7 to 10 days for reevaluation and to discuss blood thinner medication management. Take medications as prescribed. Eliquis- For the first 7 days take 2 tablets twice a day. After 7 days take 1 tablet twice a day. Return to the ER or your medical provider if condition worsens. Please read and understand discharge instructions. Thank you for choosing [facility] for your healthcare needs today. Please realize this is an emergency room and that we are providing you with a medical screening exam and this may not be complete and all inclusive of all the testing and or work up that you may need to determine your ailment or severity of your illness. It is very important that you follow up as instructed or that you return to the Emergency Department should you have concerns or if your condition changes or worsens in any way. Coding Level of Care Code ED Lap Welder for Rocio Fwsarah Exam Comprehensive
[2020-10-28] MEDS: enoxaparin 120 mg/0.8 mL Syringe 110 MG SUBCUT (18:43)
== END 2020-10-28 18:48 | disposition home or self-care (01) ==
PROVIDERS: Emergency Provider Physician Assistant; PCP Family Medicine
DX: I82.431 Acute embolism and thrombosis of right popliteal vein (principal); Z79.84 Long term (current) use of oral hypoglycemic drugs; Z87.891 Personal history of nicotine dependence
CPT/HCPCS: 96372; 99283; J1650

== ENCOUNTER 2020-11-22 18:48 | Inpatient (IN) | payer MEDICARE, SELFPAY ==
[2020-11-22] VITALS (11 sets, daily range): BP systolic 180–224; BP diastolic 55–108; PULSE 66–100; RESP 17–20; TEMP 36.7; O2SAT 96–99; BMI 35.2
--- NOTE | 2020-11-22 18:52 | XRR_ITS ---
PROCEDURE INFORMATION: Exam: XR Chest Exam date and time: 11/22/2020 6:52 PM Age: 85 years old Clinical indication: Pain; Chest pressure; Additional info: Cp TECHNIQUE: Imaging protocol: XR of the chest. Views: 1 view. COMPARISON: CR Chest 2 views* [id number] 04/10/2018 10:27 AM FINDINGS: Lungs: Moderate severity emphysematous lung changes. No focal airspace consolidation. Pleural spaces: Unremarkable. No pleural effusion. No pneumothorax. Heart/Mediastinum: Unremarkable. No cardiomegaly. Vasculature: Scattered calcified plaques in the thoracic aorta. Bones/joints: Demineralized bones. 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 Negative for acute thoracic fracture. XR/XR chest 1V portable [id number] IMPRESSION: No acute chest abnormality.
--- NOTE | 2020-11-22 18:52 | ECG_ITS ---
[facility] Test Date: 2020-11-22 Pat Name: Rebeka Anderson Department: Room: Gender: Female Web Machine Tender: : 1935 Requested By: Rj Laguerre I Order Number: [id number] Reading MD: Chaim Ford M.D. Measurements Intervals [place] Rate: 67 P: 42 NC: 181 QRS: 24 QRSD: 66 T: 54 QT: 408 QTc: 431 Interpretive Statements SINUS RHYTHM LOW QRS VOLTAGE IN PRECORDIAL LEADS [QRS DEFLECTION < 1.0 mV IN CHEST LEADS] Nonspecific ST changes in the inferior leads compared to ECG 04/10/2018 09:45:33 ST (T wave) deviation now present Sinus bradycardia no longer present Myocardial infarct finding still present Electronically Signed On 11-23-2020 19:04:34 CDT by Chaim Ford M.D. [email or web address]
[2020-11-22 19:30] LABS: Basophils # 0.1 10^3/uL (0.0-0.1); Basophils % 0.6 %; Eosinophils # 0.3 10^3/uL (0.0-0.8); Hemoglobin 14.7 g/dL (11.5-15.3); Lymphocytes # 2.2 10^3/uL (0.8-4.8); Lymphocytes % 21.7 %; Mean Corpuscular Hemoglobin 31.1 pg (28.0-34.0); Mean Corpuscular Volume 97.3 fL (81-99); Monocytes # 0.7 10^3/uL (0.2-0.9); Monocytes % 6.4 %; Neutrophils # 6.95 10^3/uL (1.8-7.7); Neutrophils % 67.9 %; Nucleated Red Blood Cells % 0 %; Platelet Count 263 10^3/cmm (130-400); Red Blood Count 4.73 10^6/uL (4.1-5.3); Red Cell Distribution Width 14.2 % (12.1-15.1); White Blood Count 10.2 10^3/uL (4.0-10.0)
[2020-11-22] MEDS: morphine 4 mg/mL SDV 1 mL IVP (19:48)
[2020-11-22] MEDS: ondansetron 2 mg/ML SDV 2 mL 4 MG IVP (19:48)
[2020-11-22 19:49] LABS: Troponin(5th) Baseline 28 ng/L (0-10)
--- NOTE | 2020-11-22 19:52 | ED_ITS ---
HPI - Chest Pain General: Chief Complaint: Chest Pain Stated Complaint: chest pain Time Seen by Provider: 11/22/20 18:50 Source: patient Mode of arrival: ambulatory Limitations: no limitations History of Present Illness: HPI narrative: Patient is an 85-year-old female who was diagnosed with a DVT 1 month ago and started on Eliquis. She did not get a refill from her primary care provider and has been off her medications for a little over a week. She presents to the emergency department with left-sided chest pain that started earlier today. Pain radiates to her back. No dizziness or lightheadedness. No nausea, vomiting, or diaphoresis. MD complaint: chest pain Onset (ago): hour(s) Timing of current episode: episodic Prior episodes: No Onset: during rest Pain location: left chest Pain radiation: none Severity: severe Relieving factors: nothing Exacerbating factors: nothing Context: recent illness Associated symptoms: Reports no associated symptoms Treatment prior to arrival: nitroglycerin Review of Systems General: Reports: 10 or more systems reviewed and unremarkable except in HPI and below PFSH ED PFSH: Medical History (Updated 11/23/20 @ 00:48 by Rj Laguerre MD, [facility] [place]) Carotid stenosis Cataract Diabetes mellitus Diverticulitis GI bleed Hypertension Migraine T3 vertebral fracture TIA (transient ischemic attack) Vertigo Surgical History (Updated 11/22/20 @ 23:47 by Katelyn Magaña MD) H/O colectomy History of appendectomy History of cholecystectomy History of right-sided carotid endarterectomy Family History Mother Hypertension Brother Aneurysm Sister Aneurysm Social History Smoking and tobacco status: former smoker Alcohol intake: never Physical Exam Const: COMMON NORMALS: no acute distress, average body habitus, patient oriented x3, no limitations, healthy appearing, alert and well nourished HENMT: COMMON NORMALS: normocephalic, atraumatic and moist oral mucous membranes HEAD & SCALP: normocephalic and atraumatic Neck/C-Spine: COMMON NORMALS: no meningeal signs and no JVD Chest: COMMONS NORMALS: normal inspection of the chest and normal palpation of entire chest wall Resp: COMMON NORMALS: normal respiratory effort, No retractions, No use of accessory muscles, clear to auscultation bilaterally and percussion normal AUSCULTATION: clear to auscultation bilaterally PERCUSSION: percussion normal Cardio: COMMON NORMALS: no JVD, regular rate, regular rhythm, S1 normal heart sound present, S2 normal heart sound present, No gallops present (Cardio), No clicks present (Cardio), No murmurs present (Cardio), No rub (Cardio) and Peripheral pulses 2+ throughout RATE: regular rate RHYTHM: regular rhythm HEART SOUNDS: S1 normal heart sound present and S2 normal heart sound present PERIPHERAL PULSES: Peripheral pulses 2+ throughout GI: COMMON NORMALS: Normal to inspection, nondistended, normoactive bowel sounds present, Soft to palpation, non-tender, No hepatosplenomegaly present, no masses and no bruits PALPATION: Yes Soft to palpation and Yes No hepatosplenomegaly present Extremity: COMMON NORMALS: normal to inspection, full ROM, capillary refill normal, no calf tenderness and no pedal edema Neuro: COMMON NORMALS: patient oriented x3 SENSORIUM/ORIENTATION: Yes alert MENINGEAL SIGNS: Yes no meningeal signs Skin: COMMON NORMALS: no rashes or lesions noted, no wounds, turgor normal, no jaundice, no petechiae and no mottling GENERAL SKIN EXAM: no rashes or lesions noted and turgor normal Course Reevaluation(s): Reevaluation #1: Discussed her lab and imaging findings with her. Also discussed them with her granddaughter. Explained that she appears to have had a non-STEMI. She will benefit from hospital admission and anticoagulation and further evaluation. They voiced understanding and they are in agreement with the plan. Time: 22:10 Consultations: Consultation #1: Discussed the patient with Dr. Magaña, hospitalist and he kindly accepted the patient to his service. Time: 22:15 Vital Signs: Vital signs: Vital Signs Temperature 98.0 F 11/22/20 21:30 Pulse Rate 84 11/23/20 00:00 Respiratory Rate 17 11/23/20 00:00 Blood Pressure 186/63 11/23/20 00:00 Pulse Oximetry 96 11/23/20 00:00 MDM - Chest Pain MDM Narrative: Medical decision making narrative: 85-year-old female patient who presents to the emergency department with chest pain. Evaluation in the emergency department is consistent with a non-STEMI. She is admitted to the cardiac stepdown unit for further evaluation and management. Medical Records: Attestation: I reviewed the patient's medical records. Lab Data: Attestation: I reviewed the patient's lab results. Labs: Lab Results 11/22/20 11/22/20 11/22/20 Range/Units 19:21 19:21 19:21 WBC 10.2 H (4.0-10.0) 10^3/ uL RBC 4.73 (4.1-5.3) 10^6/u L Hgb 14.7 (11.5-15.3) g/dL Hct 46.0 (37.0-47.0) % MCV 97.3 (81-99) fL MCH 31.1 (28.0-34.0) pg MCHC 32.0 (30.0-36.0) g/dL RDW 14.2 (12.1-15.1) % Plt Count 263 (130-400) 10^3/c mm MPV 9.0 (7.4-10.4) fL Neut % (Auto) 67.9 % Lymph % (Auto) 21.7 % [place] % (Auto) 6.4 % Eos % (Auto) 3.0 % Baso % (Auto) 0.6 % Neut # (Auto) 6.95 (1.8-7.7) 10^3/u L Lymph # (Auto) 2.2 (0.8-4.8) 10^3/u L [place] # (Auto) 0.7 (0.2-0.9) 10^3/u L Eos # (Auto) 0.3 (0.0-0.8) 10^3/u L Baso # (Auto) 0.1 (0.0-0.1) 10^3/u L Nucleated RBC % (a uto) 0 % Nucleated RBCs # 0.0 /100WBC Sodium 139 (136-145) mmol/L Potassium 4.2 (3.5-5.1) mmol/L Chloride 105 (98-107) mmol/L Carbon Dioxide 22 (22-29) mmol/L Anion Gap 16.2 (5-19) BUN 15 (8-23) mg/dL Creatinine 0.9 (0.5-0.9) mg/dL GFR Calculation Not Reportable Glucose 102 (65-115) mg/dL Calculated Osmolal ity 289 (285-295) mOsm/k g Calcium 8.8 (8.5-10.5) mg/dL Total Bilirubin 0.4 (0.15-1.2) mg/dL AST 12 (0-32) U/L ALT 7 (0-33) U/L Alkaline Phosphata se 87 (35-105) IU/L Troponin T Baselin e 28 H (0-10) ng/L Troponin T 120 Min [place] (0-10) ng/L Delta Troponin T (0-10) ABS# NT-Pro-B Natriuret Pep 481 H (0-450) pg/mL Total Protein 6.7 (6.6-8.7) g/dL Albumin 3.7 (3.5-5.2) g/dL Globulin 3.0 (1.3-4.6) g/dL Lipase 38 (13-60) U/L 11/22/20 Range/Units 21:42 WBC (4.0-10.0) 10^3/ uL RBC (4.1-5.3) 10^6/u L Hgb (11.5-15.3) g/dL Hct (37.0-47.0) % MCV (81-99) fL MCH (28.0-34.0) pg MCHC (30.0-36.0) g/dL RDW (12.1-15.1) % Plt Count (130-400) 10^3/c mm MPV (7.4-10.4) fL Neut % (Auto) % Lymph % (Auto) % [place] % (Auto) % Eos % (Auto) % Baso % (Auto) % Neut # (Auto) (1.8-7.7) 10^3/u L Lymph # (Auto) (0.8-4.8) 10^3/u L [place] # (Auto) (0.2-0.9) 10^3/u L Eos # (Auto) (0.0-0.8) 10^3/u L Baso # (Auto) (0.0-0.1) 10^3/u L Nucleated RBC % (a uto) % Nucleated RBCs # /100WBC Sodium (136-145) mmol/L Potassium (3.5-5.1) mmol/L Chloride (98-107) mmol/L Carbon Dioxide (22-29) mmol/L Anion Gap (5-19) BUN (8-23) mg/dL Creatinine (0.5-0.9) mg/dL GFR Calculation Glucose (65-115) mg/dL Calculated Osmolal ity (285-295) mOsm/k g Calcium (8.5-10.5) mg/dL Total Bilirubin (0.15-1.2) mg/dL AST (0-32) U/L ALT (0-33) U/L Alkaline Phosphata se (35-105) IU/L Troponin T Baselin e (0-10) ng/L Troponin T 120 Min [place] 88.80 H (0-10) ng/L Delta Troponin T 60.80 H* (0-10) ABS# NT-Pro-B Natriuret Pep (0-450) pg/mL Total Protein (6.6-8.7) g/dL Albumin (3.5-5.2) g/dL Globulin (1.3-4.6) g/dL Lipase (13-60) U/L Imaging Data^: CTA Chest: Attestation: I personally reviewed and interpreted this imaging study as follows: Radiologist's impression: [address] [id number] Scan ReportSigned Patient: Rebeka Anderson #: [id number]: 1935cct#:[id number]/Sex: 85 / FADM Date: 11/22/20Loc: ERRoom/Bed:Attending Dr: Ordering Provider/Ordering MD: Rj Laguerre MD, [facility] [place] Date of Service: 11/22/20 Procedure(s): CT angio chest PE protcl [id number] Accession Number(s): [id number] Report Number: [id number] PROCEDURE INFORMATION: Exam: CTA Chest With Contrast Exam date and time: 11/22/2020 8:10 PM Age: 85 years old Clinical indication: Pain; Radiating; Additional info: H/o dvt, stopped anticoagulation, chest pain , SOB TECHNIQUE: Imaging protocol: Computed tomographic angiography of the chest with contrast. 3D rendering (Not supervised by radiologist): MIP and/or 3D reconstructed images were created by the technologist. Radiation optimization: All CT scans at this facility use at least one of these dose optimization techniques: automated exposure control; mA and/or kV adjustment per patient size (includes targeted exams where dose is matched to clinical indication); or iterative reconstruction. Contrast material: OMNI 350; Contrast volume: 95 ml; Contrast route: INTRAVENOUS (IV); COMPARISON: 1. CR (CHEST, ) 11/22/2020 7:09 PM 2. CTA Head/Neck [id number] 10/27/2017 12:12:40 PM RADIATION DOSE METRICS: Total DLP (mGy-cm): 615.51 FINDINGS: Pulmonary arteries: Normal. No pulmonary emboli. Aorta: Negative for thoracic aorta aneurysm. No acute dissection. There is extensive circumferential plaque throughout the distal aortic arch and descending thoracic aorta. Lungs: Unremarkable. No consolidation. No masses. Pleural spaces: Unremarkable. No pneumothorax. No pleural effusion. Heart: Unremarkable. No cardiomegaly. No pericardial effusion. Lymph nodes: Unremarkable. No enlarged lymph nodes. Gallbladder and bile ducts: Cholecystectomy. Nondilated biliary system. Stomach and bowel: Duodenum diverticulum. Diverticulosis coli. Bones/joints: Unremarkable. No acute fracture. Soft tissues: Unremarkable. CT/CT angio chest PE protcl [id number] IMPRESSION: 1. Negative for pulmonary embolism. 2. Negative for acute pulmonary disease. Radiation Dose CTDIVOL = (mGy): DLP = 615.51 (mGy-cm) Dictated By:Dayna Akhtar By:Dayna Akhtar Date/Time:11/22/202114DD/ 12 CXR: Attestation: I personally reviewed and interpreted this imaging study as follows: Radiologist's impression: [address] [id number] ReportSigned Patient: Rebeka Anderson #: [id number]: 6Acct#:[id number]/Sex: 85 / FADM Date: 11/22/20Loc: ERRoom/Bed:Attending Dr: Ordering Provider/Ordering MD: Rj Laguerre MD, [facility] [place] Date of Service: 11/22/20 Procedure(s): XR chest 1V portable [id number] Accession Number(s): [id number] Report Number: [id number] PROCEDURE INFORMATION: Exam: XR Chest Exam date and time: 11/22/2020 6:52 PM Age: 85 years old Clinical indication: Pain; Chest pressure; Additional info: Cp TECHNIQUE: Imaging protocol: XR of the chest. Views: 1 view. COMPARISON: CR Chest 2 views* [id number] 04/10/2018 10:27 AM FINDINGS: Lungs: Moderate severity emphysematous lung changes. No focal airspace consolidation. Pleural spaces: Unremarkable. No pleural effusion. No pneumothorax. Heart/Mediastinum: Unremarkable. No cardiomegaly. Vasculature: Scattered calcified plaques in the thoracic aorta. Bones/joints: Demineralized bones. 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 Negative for acute thoracic fracture. XR/XR chest 1V portable [id number] IMPRESSION: No acute chest abnormality. Dictated By:Dayna Akhtar By:Dayna Akhtar Date/Time:11/22/202029DD/ 28 EKG Data^: EKG 1: Attestation: I personally reviewed and interpreted this EKG as follows: EKG interpretation date: 11/22/20 EKG interpretation time: 19:14 Prior EKG tracings: not available for review Interpretation: Sinus rhythm. Heart rate [address] changes. EKG 2: Attestation: I personally reviewed and interpreted this EKG as follows: EKG interpretation date: 11/22/20 EKG interpretation time: 20:23 Prior EKG tracings: available for review Interpretation: Sinus rhythm. Heart rate [address] changes. No significant change from earlier today EKG 3: Attestation: I personally reviewed and interpreted this EKG as follows: EKG interpretation date: 11/22/20 EKG interpretation time: 22:19 Prior EKG tracings: available for review Interpretation: Sinus rhythm. Heart rate [address] changes. 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
[2020-11-22 19:58] LABS: Alanine Aminotransferase 7 U/L (0-33); Albumin Level 3.7 g/dL (3.5-5.2); Alkaline Phosphatase 87 IU/L (35-105); Anion Gap 16.2 (5-19); Aspartate Amino Transferase 12 U/L (0-32); Blood Urea Nitrogen 15 mg/dL (8-23); Calcium 8.8 mg/dL (8.5-10.5); Carbon Dioxide 22 mmol/L (22-29); Chloride 105 mmol/L (98-107); Glucose 102 mg/dL (65-115); Lipase 38 U/L (13-60); NT Pro B Type Natriuretic Pept 481 pg/mL (0-450); Osmolality Calculated 289 mOsm/kg (285-295); Potassium 4.2 mmol/L (3.5-5.1); Sodium 139 mmol/L (136-145); Total Bilirubin 0.4 mg/dL (0.15-1.2); Total Protein 6.7 g/dL (6.6-8.7)
--- NOTE | 2020-11-22 20:10 | CTR_ITS ---
PROCEDURE INFORMATION: Exam: CTA Chest With Contrast Exam date and time: 11/22/2020 8:10 PM Age: 85 years old Clinical indication: Pain; Radiating; Additional info: H/o dvt, stopped anticoagulation, chest pain , SOB TECHNIQUE: Imaging protocol: Computed tomographic angiography of the chest with contrast. 3D rendering (Not supervised by radiologist): MIP and/or 3D reconstructed images were created by the technologist. Radiation optimization: All CT scans at this facility use at least one of these dose optimization techniques: automated exposure control; mA and/or kV adjustment per patient size (includes targeted exams where dose is matched to clinical indication); or iterative reconstruction. Contrast material: OMNI 350; Contrast volume: 95 ml; Contrast route: INTRAVENOUS (IV); COMPARISON: 1. CR (CHEST, ) 11/22/2020 7:09 PM 2. CTA Head/Neck [id number] 10/27/2017 12:12:40 PM RADIATION DOSE METRICS: Total DLP (mGy-cm): 615.51 FINDINGS: Pulmonary arteries: Normal. No pulmonary emboli. Aorta: Negative for thoracic aorta aneurysm. No acute dissection. There is extensive circumferential plaque throughout the distal aortic arch and descending thoracic aorta. Lungs: Unremarkable. No consolidation. No masses. Pleural spaces: Unremarkable. No pneumothorax. No pleural effusion. Heart: Unremarkable. No cardiomegaly. No pericardial effusion. Lymph nodes: Unremarkable. No enlarged lymph nodes. Gallbladder and bile ducts: Cholecystectomy. Nondilated biliary system. Stomach and bowel: Duodenum diverticulum. Diverticulosis coli. Bones/joints: Unremarkable. No acute fracture. Soft tissues: Unremarkable. CT/CT angio chest PE protcl [id number] IMPRESSION: 1. Negative for pulmonary embolism. 2. Negative for acute pulmonary disease. Radiation Dose CTDIVOL = (mGy): DLP = 615.51 (mGy-cm)
--- NOTE | 2020-11-22 20:52 | ECG_ITS ---
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 Measurements Intervals Evans Rate: 71 P: 45 CO: 186 QRS: 8 QRSD: 70 T: 30 QT: 403 QTc: 438 Interpretive Statements SINUS RHYTHM LOW QRS VOLTAGE IN PRECORDIAL LEADS [QRS DEFLECTION < 1.0 mV IN CHEST LEADS] Compared to ECG 11/22/2020 19:14:23 ST (T wave) deviation no longer present Myocardial infarct finding no longer present Electronically Signed On 11-23-2020 19:16:01 CDT by Chaim Ford M.D. [id number]
[2020-11-22] MEDS: iohexol 350 mg/mL 100 mL Btl IV (21:03)
[2020-11-22] MEDS: fentaNYL 50 mcg/mL INJ 2mL IVP (21:11)
[2020-11-22] MEDS: enoxaparin 80 mg/0.8 mL Syringe SUBCUT (23:07)
[2020-11-22] MEDS: nitroglycerin 1 gm/inch oint Pkt 1 INCH TOPICAL (23:24)
--- NOTE | 2020-11-22 23:45 | P.HP_ITS ---
Providers/Chief Complaint Admitting Physician: Katelyn Magaña MD Primary Care Provider: Alirio Dubon DO Chief Complaint: chest pain History of Present Illness Rebeka Anderson is a 85 year old female who was diagnosed with right leg DVT when she sustained a fall about a month ago, patient was discharged on Eliquis, presented today with chief complaint of chest pain. Patient is stating that for last 1 week she has not taken Eliquis because it was not refilled, at home she has been feeling lethargic and fatigued no recent falls. Today she started experiencing back pain which was radiating towards her stomach and left side of her chest. She is describing this pain as achy in nature excruciating pain which would get worse on any kind of movement and touching left side of the chest. Her chest pain would last for about 1 to 2 minutes. It was associated with shortness of breath and nausea, she did not experience any vomiting. She is endorsing chronic loose stools since her colectomy. Diagnosis in the ER revealed non-ST segment elevation NM she was given Lovenox. CTA ruled out PE, normal CBC and BMP other than troponin 28 and 88 with significant delta, EKG without ischemic or infarctive changes, CTA rule out PE chest x-ray unremarkable no signs of aortic dissection, at the time of my evaluation she was complaining of constant low intensity pain for which Nitrop aste 1 inch was placed on her chest Review of Systems Const: Reports: body aches and fatigue Eyes: Denies: change in vision ENMT: Denies: throat pain Card: Reports: chest pain and dyspnea on exertion Resp: Reports: dyspnea and pain on inspiration GI: Denies: abdominal pain : Denies: flank pain Musc: Denies: neck pain Skin/Breast: Denies: rash Neuro: Denies: headache(s) Psych: Reports: anxiety Endo: Denies: polyuria Kaleb/Lymph: Denies: easy bruising All/Imm: Denies: urticaria Medications/Allergies Home Medications Medication Instructions Recorded Confirmed Last Taken Type alprazolam 0.25 mg tablet 0.25 mg PO BID 03/06/20 10/28/20 10/21/20 History metformin 500 mg tablet 500 mg PO BID 03/06/20 10/28/20 10/21/20 History metoprolol tartrate 25 mg tablet 25 mg PO BID 03/06/20 10/28/20 10/21/20 History sertraline 100 mg tablet 100 mg PO DAILY 03/06/20 10/28/20 10/21/20 History apixaban 5 mg PO BID #60 tab 10/28/20 Unknown Rx Allergies Allergy/AdvReac Type Severity Reaction Status Date / Time No Known Allergies Allergy Verified 10/28/20 15:53 PFSH Acute PFSH: Medical History Carotid stenosis Cataract Diabetes mellitus Diverticulitis GI bleed Hypertension Migraine T3 vertebral fracture TIA (transient ischemic attack) Vertigo Surgical History H/O colectomy History of appendectomy History of cholecystectomy History of right-sided carotid endarterectomy Family History Mother Hypertension Brother Aneurysm Sister Aneurysm Social History Smoking and tobacco status: former smoker Alcohol intake: never Vitals/I&O/Wt Last Vital Signs Temp 98.0 F 11/22/20 21:30 Pulse 76 11/22/20 23:00 Resp 18 11/22/20 23:00 BP 197/55 11/22/20 23:00 Pulse Ox 96 11/22/20 23:00 Weight last 48 hrs Weight 81.647 kg Physical Exam Narrative: EXAM NARRATIVE: Very pleasant and cooperative elderly female Was sitting comfortably in her bed without any active shortness of breath however complaining of pleuritic chest pain, her chest pain gets worse on palpation around left anterior chest Awake alert oriented x3 GCS 15 S1, S2 systolic murmur right second intercostal space radiating towards her neck No active signs of congestive heart failure Abdomen soft nontender bowel sound present Lower extremity no edema gangrene or ulcer Appropriate mood and affect No joint swelling or signs of cellulitis Bilateral breath sounds without adventitious rhonchi or crackles EOMI, PERRLA Data : 11/22/20 19:21 11/22/20 19:21 A&P Assessment and plan (1) NSTEMI (non-ST elevated myocardial infarction): Status: Acute Additional A&P Information Non-ST segment elevation NM Significant delta troponin, EKG without ischemic or infarctive changes Start ACS protocol Request echo in the morning, consider cardiology evaluation in the morning PE ruled out no signs of aortic dissection Patient had hypertensive urgency on arrival her blood pressure improved with use of nitroglycerin paste If she becomes symptomatic overnight will activate cardiology Right leg DVT missed Eliquis dosage currently on Lovenox Cardiac diet DVT prophylaxis not indicated due to therapeutic dose of Lovenox Full code Attestations Medical Necessity Statement*: Anticipating stay in the hospital because more than 2 midnights for NSTEMI management Time Spent in Patient Care: 40mins Coding Level of Care Code Acute Karate Black Belt for Rocio Salmeron Diagnoses NSTEMI (non-ST elevated myocardial infarction) I21.4
[2020-11-23] VITALS (19 sets, daily range): BP systolic 110–188; BP diastolic 38–84; PULSE 63–86; RESP 12–23; TEMP 36.6–36.9; O2SAT 90–97
--- NOTE | 2020-11-23 00:25 | PC.NURSE ---
report called to ELEANOR Lala in CSU. Pt will be taken via bed to [facility] 103
--- NOTE | 2020-11-23 00:33 | USCV_ITS ---
Rebeka Anderson Age: 85 Gender: F : 1935 Exam Date: 11/23/2020 09:16 Ordering Phys: Katelyn Magaña MD Technologist: Angelica Couch Exam Location: [facility] [place] Indication: NSTEMI BP: 168 / 76 HR: 62 Rhythm: Sinus Technical Quality: Fair MEASUREMENTS (Male / Female) Normal Values 2D ECHO LV Diastolic Diameter PLAX 2.9 cm 4.2 - 5.9 / 3.9 - 5.3 cm LV Systolic Diameter PLAX 1.9 cm LV Chamber Size 3.6 cm IVS Diastolic Thickness 2.0 cm 0.6 - 1.0 / 0.6 - 0.9 cm IVS Systolic Thickness 2.2 cm LVPW Diastolic Thickness 1.4 cm 0.6 - 1.0 / 0.6 - 0.9 cm LVPW Systolic Thickness 1.6 cm RV Chamber Size 2.1 cm LVOT Diameter 1.8 cm LV Ejection Fraction 2D Teich 64.0 % LV Ejection Fraction MOD 2C 79.7 % LV Ejection Fraction 2C AL 81.0 % LA Diameter 3.7 cm LA Width 2.9 cm LA Height 5.5 cm RA Width 2.0 cm RA Height 4.9 cm Aorta at Sinotubular Diameter 2.3 cm M-MODE LV Diastolic Diameter MM 5.0 cm 4.2 - 5.9 / 3.9 - 5.3 cm LV Systolic Diameter MM 3.0 cm LV Ejection Fraction MM Teich 71.9 % IVS Diastolic Thickness MM 1.1 cm 0.6 - 1.0 / 0.6 - 0.9 cm IVS Systolic Thickness MM 1.6 cm LVPW Diastolic Thickness MM 1.6 cm 0.6 - 1.0 / 0.6 - 0.9 cm LVPW Systolic Thickness MM 1.7 cm RV Diastolic Diameter MM 0.4 cm Aortic Annulus Diameter 2.9 cm LA Ao Ratio MM 1.6 MV E Point Septal Separation 0.4 cm DOPPLER AV Peak Velocity 184.8 cm/s LVOT Peak Velocity 115.0 cm/s AV Area Cont Eq vti 1.5 cm squared AV Area Cont Eq pk 1.6 cm squared MV Area PHT 2.1 cm squared Mitral E to A Ratio 0.7 MV E' Velocity 46.5 cm/s Mitral E to MV E' Ratio 14.1 Mitral E to LV E' Lateral Ratio 14.3 Mitral E to LV E' Septal Ratio 14.1 TR Peak Velocity 193.7 cm/s TR Peak Gradient 15.0 mmHg TV Peak E Velocity 44.0 cm/s Right Atrial Pressure 3.0 mmHg Pulmonary Artery Systolic Pressu 18.0 mmHg PV Peak Velocity 91.0 cm/s RV Acceleration Time 0.1 s RV Ejection Time 0.3 s RV AcT/ET 0.2 FINDINGS Left Ventricle Normal left ventricular size and systolic function, EF 76 %. Mild left ventricular hypertrophy. Grade I/IV diastolic dysfunction (abnormal relaxation filling pattern), normal to mildly elevated filling pressures. Right Ventricle The right ventricle is normal in size and function. Right Atrium The right atrium is normal in size. Left Atrium Mildly increased left atrial size. Mitral Valve Moderate to heavy mitral annular calcification.trace mitral valve regurgitation. Aortic Valve Thickened aortic valve. Trace aortic valve regurgitation. Tricuspid Valve No gross abnormalities noted Pulmonic Valve Pulmonic valve not well visualized. Pericardium Normal pericardium without effusion. Aorta Normal aortic annulus size. CONCLUSIONS Normal left ventricular size and systolic function, EF 76 %. Mild left ventricular hypertrophy. Grade I/IV diastolic dysfunction (abnormal relaxation filling pattern), normal to mildly elevated filling pressures. Moderate to heavy mitral annular calcification.trace mitral valve regurgitation. Thickened aortic valve. Trace aortic valve regurgitation. Mildly increased left atrial size. There is no pericardial effusion. There are no intracardiac masses. Compared to the study from 12/13/2017, there may not be a significant change Dr Chaim Ford MD FAC (Electronically Signed) Final Date: 23 November 2020 13:47 S
--- NOTE | 2020-11-23 00:52 | ECG_ITS ---
[facility] Test Date: 2020-11-23 Pat Name: Rebeka Anderson Department: Room: 104 Gender: Female Lithography Contact Worker: IWONA HANKINSB: 1935 Requested By: Rj Laguerre I Order Number: [id number] Reading MD: Chaim Ford M.D. Measurements Intervals [place] Rate: 76 P: 37 MO: 174 QRS: -5 QRSD: 81 T: 19 QT: 412 QTc: 465 Interpretive Statements SINUS RHYTHM INFERIOR MYOCARDIAL INFARCTION [40+ ms Q WAVE AND/OR ST/T ABNORMALITY IN II/aVF], PROBABLY OLD Compared to ECG 11/22/2020 22:19:48 Myocardial infarct finding now present Electronically Signed On 11-23-2020 19:16:35 CDT by Chaim Ford M.D. [id number]
[2020-11-23] MEDS: ondansetron 2 mg/ML SDV 2 mL 4 MG IVP ×2 (01:03→01:57)
--- NOTE | 2020-11-23 01:15 | PC.NURSE ---
Informed Dr Magaña of patient's current BP of 188/84 along with nausea. Doctor placed order for Zofran and I received telephone order to give todays dose of lisinopril and metoprolol now.
[2020-11-23] MEDS: acetaminophen 325 mg Tablet PO ×3 (01:47→23:50)
[2020-11-23] MEDS: lisinopril 10 mg Tablet PO (01:48)
[2020-11-23] MEDS: metoprolol succinate ER (24 HR) 25 mg Tablet PO (01:48)
[2020-11-23] MEDS: ALPRAZolam 0.25 mg Tablet PO ×3 (01:49→21:48)
[2020-11-23] MEDS: aspirin 325 mg EC Tablet PO (01:49)
[2020-11-23] MEDS: lidocaine 2% viscous 15 ML, aluminum-mag hydrox-simethicon 30 ML, sucralfate oral liq 1 GM PO (01:49)
[2020-11-23] MEDS: clopidogrel 300 mg Tablet PO (01:49)
[2020-11-23 02:50] LABS: Blood Urea Nitrogen 14 mg/dL (8-23); Calcium 8.7 mg/dL (8.5-10.5); Carbon Dioxide 24 mmol/L (22-29); Chloride 105 mmol/L (98-107); Glucose 127 mg/dL (65-115); Osmolality Calculated 290 mOsm/kg (285-295); Sodium 139 mmol/L (136-145); Troponin 5 6HR 82.31 ng/L (0-10)
[2020-11-23 02:57] LABS: Anion Gap 14.7 (5-19); Potassium 4.7 mmol/L (3.5-5.1)
[2020-11-23 03:11] LABS: Troponin 5 6HR Delta 54.31 ng/L (0-12)
--- NOTE | 2020-11-23 09:05 | P.PN_ITS ---
Subjective Subjective: Interval history: Admitted overnight. Patient has remained hemodynamically stable. H&P and labs noted. Currently on examination states she is chest pain-free, no difficulty in breathing. Currently saturating well on room air. Complaining of back pain and right flank pain. She is been having these pains for last 3 days. Denies any dysuria, fevers. Denies nausea or vomiting. Vitals/I&O/Wt Last Vital Signs Temp 97.8 F 11/23/20 01:10 Pulse 78 11/23/20 06:17 Resp 20 H 11/23/20 04:00 BP 168/76 11/23/20 04:00 Pulse Ox 94 11/23/20 06:17 Weight last 48 hrs Weight 81.647 kg Physical Exam Narrative: EXAM NARRATIVE: Very pleasant and cooperative elderly female Was sitting comfortably in her bed without any active shortness of breath however complaining of pleuritic chest pain, her chest pain gets worse on palpation around left anterior chest Awake alert oriented x3 GCS 15 S1, S2 systolic murmur right second intercostal space radiating towards her neck No active signs of congestive heart failure Abdomen soft nontender bowel sound present Lower extremity no edema gangrene or ulcer Appropriate mood and affect No joint swelling or signs of cellulitis Bilateral breath sounds without adventitious rhonchi or crackles EOMI, PERRLA Data : 11/22/20 19:21 11/23/20 01:49 A&P Assessment and plan (1) NSTEMI (non-ST elevated myocardial infarction): Status: Acute (2) Carotid stenosis: Status: Acute Qualifiers: Laterality: unspecified laterality Qualified Code(s): I65.29 - Occlusion and stenosis of unspecified carotid artery (3) Diabetes mellitus: Status: Acute (4) Hypertension: Status: Acute Additional A&P Information CAD: Non-ST elevation MO: Currently chest pain-free. Troponin cycle trended up. Repeat troponin. As patient is chest pain-free we will plan for Lexiscan tomorrow morning. N.p.o. after midnight. Continue on aspirin, Plavix, statin. Lovenox full dose. Check lipid panel, HbA1c. Metoprolol 25 mg twice daily, lisinopril 10 mg. Will uptitrate as per blood pressure. Hypertension: Goal blood pressure less than 140/90 mmHg. Management as above. Will uptitrate accordingly. History of DVT: Has been on Eliquis for last 1 month. Currently having taken for last 15 days as ran out of the prescription. CTA done last night negative for PE. Continue Lovenox 1 mg/kg body weight as per creatinine clearance 12 hourly. Will also help with non-STEMI. History of type 2 diabetes mellitus: Check HbA1c. Insulin as low-dose protocol before meals and at bedtime. Abdominal pain/back pain: CT abdomen pelvis without contrast, CT lumbar spine to rule out colitis, constipation, kidney stones. Check iron panel, TSH. Continue chronic home medication including sertraline. Cardiac diet. Full code. Full dose Lovenox will also help with DVT prophylaxis. PT/OT evaluation. Attestations Medical Necessity Statement*: Requires further hospitalization for management of non-ST elevation MO Time Spent in Patient Care: Greater than 35 minutes (>than 50% of time spent in counselling and/or direct pt care on unit) . 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
--- NOTE | 2020-11-23 09:05 | ECG_ITS ---
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 The perfusion scan will be documented separately. DATA: Baseline heart rate was 58 beats per minute. Baseline blood pressure was 138/66 millimeters of mercury. Target heart rate was 136. Maximum heart rate achieved was 85. which was 62 % of the predicted target heart rate. Maximum blood pressure was 139/71 millimeters of mercury. The reason for ending the test was completion of the protocol. The patient did not experience any symptoms. ELECTROCARDIOGRAM: BASELINE: Sinus rhythm. Normal axis. Otherwise, no ST-T changes suggestive of ischemia noted. No arrhythmia noted. EXERCISE: After Lexiscan injection, no ST-T changes suggestive of ischemic noted. No arrhythmia noted. 1. EKG not suggestive of ischemia 2. Lexiscan injection unremarkable. 3. Perfusion scan will be documented separately. Electronically Signed On 11-24-2020 21:13:21 CDT by LIBERTY CHOW [id number]
[2020-11-23] MEDS: clopidogrel 75 mg Tablet PO (09:43)
[2020-11-23] MEDS: aspirin 81 mg EC Tablet PO (09:43)
[2020-11-23 09:49] LABS: Iron 33 ug/dL (37-145); Percent Saturation 12.7 % (20-50); Total Iron Binding Capacity 259 mcg/dl; Unsaturated Iron Binding 226 ug/dL (112-347)
[2020-11-23 09:49] LABS: Troponin T (5th) Once 77 ng/L (0-10)
[2020-11-23] MEDS: sertraline 100 mg Tablet PO (09:56)
[2020-11-23] MEDS: enoxaparin 80 mg/0.8 mL Syringe SUBCUT ×2 (10:00→21:17)
--- NOTE | 2020-11-23 10:15 | PC.CHAP ---
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 project product manager visit [] Patient/Family/Request visit [] Outpatient visit [] Follow-up visit [] Physician referral [] Code/Alert [XX] Routine visit [] Staff referral [] Actively dying [] Patient sleeping [] Family support [] [] Out of room [] Palliative care [] [XX] Receiving care in room [] Pre-surgical visit [] Trauma [] Long length of stay [] ICU visit [] Other: Relational/Emotional Strength [] Patient feels connected with others/family/visitors/staff [] Distress [] Loneliness/isolation [] Abandonment Spirituality of Patient [] Person of Elaine [] Attends Christian of their Elaine [] Believes in Prayer [] Reads Bible or Confucianist materials [] There are Spiritual issues to be addressed Parts Driver Interventions [] Prayer [] Active listening [] Non-anxious presence [] Spiritual/emotional support [] Crisis/trauma care [] Spiritual counseling [] Bereavement support [] Provided bereavement packet [] Provided Bible/devotional materials [] Provided toy/stuffed animal, coloring book to patient or family member [] Provided Communion [] Anointing/[place] [] Salvation [] Completed spiritual assessment [] Other: Impact on Illness or Injury [] Angry [] Fearful [] Anxious [] Often cries [] Exhaustion [] Unable to work [] Unable to attend anabaptism [] Unable to walk/stand [] Unable to read [] Unable to drive [] Unable to eat/drink [] Unable to sleep [] Unable to be with family [] Patient intubated [] Other: Summary Time spent with patient
[2020-11-23 10:42] LABS: Ferritin 278 ng/mL (15-150); Thyroid Stimulating Hormone 3.31 uIU/mL (0.27-4.20)
[2020-11-23 11:05] LABS: Glucose Point of Care 127 mg/dL (70-110)
--- NOTE | 2020-11-23 12:41 | CTR_ITS ---
PROCEDURE INFORMATION: Exam: CT Abdomen And Pelvis Without Contrast Exam date and time: 11/23/2020 12:41 PM Age: 85 years old Clinical indication: Abdominal pain; Additional info: Flank pain, constipation. TECHNIQUE: Imaging protocol: Computed tomography of the abdomen and pelvis without contrast. Radiation optimization: All CT scans at this facility use at least one of these dose optimization techniques: automated exposure control; mA and/or kV adjustment per patient size (includes targeted exams where dose is matched to clinical indication); or iterative reconstruction. COMPARISON: CT abdomen pelvis w con* [id number] 11/30/2017 12:06 PM RADIATION DOSE METRICS: Total DLP (mGy-cm): 1666.65 FINDINGS: Liver: Normal. No mass. Gallbladder and bile ducts: There has been a cholecystectomy. Pancreas: Normal. No ductal dilation. Spleen: Normal. No splenomegaly. Adrenal glands: Normal. No mass. Kidneys and ureters: There is contrast in the kidneys and bladder. There is a cyst in the left kidney. No hydronephrosis. Stomach and bowel: There is a periumbilical hernia containing small bowel without obstruction or wall thickening.Colonic diverticula are present although there are no CT findings to suggest diverticulitis. There has been sigmoid colon surgery. Appendix: No evidence of appendicitis. Intraperitoneal space: Unremarkable. No free air. No significant fluid collection. Vasculature: Unremarkable. No abdominal aortic aneurysm. Lymph nodes: Unremarkable. No enlarged lymph nodes. Urinary bladder: Unremarkable as visualized. Reproductive: Unremarkable as visualized. Bones/joints: Degenerative change is identified in the spine. No acute fracture. Soft tissues: Unremarkable. CT/CT abdomen pelvis con [id number] IMPRESSION: There are no acute concerning abnormalities. There is a periumbilical hernia containing small bowel without obstruction or wall thickening. Small bowel appears incarcerated without evidence of strangulation. COMMENTS: Consistent with the [employer]'s Incidental Findings Committee white paper (J Am Madelaine Radiol 2018): Any incidental renal lesion less than 1 cm or classified as too small to characterize, or any incidental cystic renal lesion characterized as simple-appearing, is likely benign. No follow-up imaging is recommended for these lesions per consensus recommendations based on imaging criteria. Radiation Dose CTDIVOL = (mGy): DLP = 1666.65 (mGy-cm)
--- NOTE | 2020-11-23 12:41 | CTR_ITS ---
PROCEDURE INFORMATION: Exam: CT Lumbar Spine Without Contrast Exam date and time: 11/23/2020 12:41 PM Age: 85 years old Clinical indication: Low back pain TECHNIQUE: Imaging protocol: Computed tomography images of the lumbar spine without contrast. Radiation optimization: All CT scans at this facility use at least one of these dose optimization techniques: automated exposure control; mA and/or kV adjustment per patient size (includes targeted exams where dose is matched to clinical indication); or iterative reconstruction. COMPARISON: CT lumbar spine wo con* [id number] 10/22/2020 6:43 PM RADIATION DOSE METRICS: Total DLP (mGy-cm): 2098.04 FINDINGS: Vertebrae: No acute fracture. There is deformity of the T12 and L5 to vertebral bodies which is unchanged. There is sacralization of L5. There is mild anterolisthesis of L4 relative to L5 which is unchanged. L1-L2: There is a diffuse disc bulge resulting in mild central canal stenosis. There is an osteophyte resulting in moderate right neural foraminal narrowing. L2-L3: There is a diffuse disc bulge which in association with ligamentum flavum hypertrophy and facet disease results in mild central canal stenosis. No significant neural foraminal narrowing. L3-L4: There is a diffuse disc bulge which in association with ligamentum flavum hypertrophy and facet disease results in moderate central canal stenosis. There is advanced right and mild left neural foraminal narrowing. L4-L5: There is a mild diffuse disc bulge. No central canal stenosis or neural foraminal narrowing. L5-S1: There is bulky bilateral facet disease. No significant central canal stenosis or neural foraminal narrowing. Soft tissues: Unremarkable. CT/CT lumbar spine wo con* [id number] IMPRESSION: There are no acute concerning abnormalities. No significant change when compared with 10/22/2020.If there is desire for further evaluation, a MRI could be performed. Radiation Dose CTDIVOL = (mGy): DLP = 2098.04 (mGy-cm)
[2020-11-23] MEDS: pantoprazole DR 40 mg Tablet PO (15:24)
--- NOTE | 2020-11-23 16:05 | PM.CONSULT ---
Providers/Reason For Consult Consulting Physician/Specialty*: Yash Judge MD Reason for Consult*: Ventral hernia Attending Physician: Moi Do MD Primary Care Provider: Alirio Dubon DO History of Present Illness History of Present Illness Chief Complaint: I have some heartburn History of present illness: Ms. Rebeka Anderson is a pleasant 85 year old female presented with history of chest pain and was admitted on the hospitalist service with the plan to perform a stress test tomorrow, patient has mentioned to the hospitalist service that she has been having heartburn and that led to a CT scan of the abdomen and pelvis with incidental finding of chronic incarcerated ventral incisional hernia status post open sigmoid colectomy for complicated diverticulitis about 20 years ago. Patient has not been complaining of her hernia and she has been having loose stools but she did not have a bowel movement since her admission yesterday. CT scan of the abdomen and pelvis Sfinding There are no acute concerning abnormalities. There is a periumbilical hernia containing small bowel without obstruction or wall thickening. Small bowel appears incarcerated without evidence of strangulation. Per admitting hospitalist note Dr. Graff ''Diagnosis in the ER revealed non-ST segment elevation PR she was given Lovenox. CTA ruled out PE, normal CBC and BMP other than troponin 28 and 88 with significant delta, EKG without ischemic or infarctive changes, CTA rule out PE chest x-ray unremarkable no signs of aortic dissection, at the time of my evaluation she was complaining of constant low intensity pain for which Nitropaste 1 inch was placed on her chest'' General surgery was consulted and upon further inquiry from the patient denies chills fevers or any signs or symptoms of bowel obstruction, she was not aware that she does have a hernia. Review of Systems General: Reports: 10 or more systems reviewed and unremarkable except in HPI and below Meds/Allergies Home Medications and Allergies Home Medications Medication Instructions Recorded Confirmed Last Taken Type alprazolam 0.25 mg tablet 0.25 mg PO BID PRN 03/06/20 11/23/20 11/22/20 10:00 History metformin 500 mg tablet 500 mg PO BID 03/06/20 11/23/20 11/22/20 10:00 History metoprolol tartrate 25 mg tablet 25 mg PO BID 03/06/20 11/23/20 11/22/20 10:00 History sertraline 100 mg tablet 100 mg PO DAILY 03/06/20 11/23/20 11/21/20 10:00 History apixaban 5 mg PO BID #60 tab 10/28/20 11/23/20 11/15/20 09:00 Rx Allergies Allergy/AdvReac Type Severity Reaction Status Date / Time No Known Allergies Allergy Verified 10/28/20 15:53 Current Medications Current Medications Generic Name Dose Route Start Last Admin Trade Name Freq PRN Reason Stop Dose Admin Acetaminophen 325 mg 11/23/20 09:07 11/23/20 11:28 Acetaminophen 325 Mg Tablet PO 325 mg Q4H PRN Administration MILD PAIN OR INCREASE TEMP Alprazolam 0.25 mg 11/23/20 01:42 11/23/20 09:57 Alprazolam 0.25 Mg Tablet PO 0.25 mg BID PRN Administration AGITATION Aspirin 81 mg 11/23/20 09:00 11/23/20 09:43 Aspirin 81 Mg Ec Tablet PO 81 mg DAILY JENNA Administration Clopidogrel Bisulfate 75 mg 11/23/20 09:00 11/23/20 09:43 Clopidogrel 75 Mg Tablet PO 75 mg DAILY JENNA Administration Enoxaparin Sodium 80 mg 11/23/20 11:00 11/23/20 10:00 Enoxaparin 80 Mg/0.8 Ml Syringe SUBCUT 80 mg Q12H JENNA Administration Insulin Aspart 0 unit 11/23/20 12:00 11/23/20 11:18 Insulin Aspart 100 Unit/1 Ml SUBCUT Not Given WM&BEDTIME [facility] Protocol Lisinopril 10 mg 11/23/20 01:14 11/23/20 01:48 Lisinopril 10 Mg Tablet PO 10 mg DAILY JENNA Administration Ondansetron HCl 4 mg 11/23/20 00:55 11/23/20 01:57 Ondansetron 2 Mg/Ml Sdv 2 Ml IVP 4 mg Q6H PRN Administration NAUSEA AND VOMITING Pantoprazole Sodium 40 mg 11/23/20 15:15 11/23/20 15:[address] 40 Mg Tablet PO 40 mg DAILY JENNA Administration Sertraline HCl 100 mg 11/23/20 09:36 11/23/20 09:56 Sertraline 100 Mg Tablet PO 100 mg DAILY JENNA Administration PFSH Acute PFSH: Medical History Carotid stenosis Cataract Diabetes mellitus Diverticulitis GI bleed Hypertension Migraine T3 vertebral fracture TIA (transient ischemic attack) Vertigo Surgical History H/O colectomy History of appendectomy History of cholecystectomy History of right-sided carotid endarterectomy Family History Mother Hypertension Brother Aneurysm Sister Aneurysm Social History Smoking and tobacco status: former smoker Alcohol intake: never Vitals/I&O/Wt Last Vital Signs Temp 98.1 F 11/23/20 08:00 Pulse 63 11/23/20 12:00 Resp 20 H 11/23/20 11:40 BP 110/38 11/23/20 11:40 Pulse Ox 95 11/23/20 08:00 11/23/20 11/23/20 11/23/20 06:59 14:59 22:59 Intake Total 222 / 222 Balance 222 / 222 Weight last 48 hrs Weight 180 lb Physical Exam Narrative: EXAM NARRATIVE: Patient is conscious alert oriented X3 BMI 35.2 Head and neck examination PERRLA no masses no cervical lymphadenopathy no jaundice Cardiac examination audible S1-S2 no murmurs no gallops no arrhythmias Chest is clear bilateral,abscence of Rhonchi or wheezes,no surgical emphysema Abdomen nontender except mildly towards the left lower quadrant, otherwise nondistended soft no organomegaly guarding or rigidity/no signs of peritonitis Lower midline scar with chronic incarcerated partially reducible ventral hernia A&P Assessment and plan (1) Ventral incisional hernia without obstruction or gangrene: After thorough history physical examination reviewing the chart and images of the CT scan with my personal interpretation I can appreciate surgical changes fro previous sigmoid colectomy,also patient does have an epigastric hernia containing fat content and a larger defect about 5 inches in diameter in the lower abdomen with chronic incarcerated small bowels without evidence of stranding or strangulation or pneumatosis. Likely the patient had developed that following her laparotomy for sigmoid colectomy. From surgical standpoint of view I do not see an indication for acute surgical intervention unless something should to change during the hospital course.I did discuss with the patient and the family that I am happy to have the patient follow-up with me as an outpatient for further evaluation and potential intervention for repair of the hernia on elective basis, if Ms Anderson is interested to pursue that. Advise Metamucil Bid and avoid laxatives and focus on oral hydration . Pending further cardiac evaluation and management. Thank you for consulting general surgery to participate taking care Status: Acute (2) Acid reflux: Raise the head of the bed 4-6 inches Frequent small meals through the day Avoid smoking or Chewing Tobacco Avoid excess coffee, tea, and other caffeinated beverages Avoid garments that fit tightly through the abdomen Avoid eating before going to sleep Avoid nonsteroidal anti-inflammatory drugs (NSAIDs) when possible Anti-reflux diet Anti-reflux medications as prescribed Emphasis on weight management Status: Acute Consult Attestations Medical Necessity Statement: Patient requiring inpatient hospitalization passing 2 midnights for medical care and cardiac evaluation Time Spent in Patient Care: (>than 50% of time spent in counselling and/or direct pt care on unit). 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
[2020-11-23 17:03] LABS: Glucose Point of Care 137 mg/dL (70-110)
[2020-11-23] MEDS: psyllium powder Pkt 1 PACKET PO (18:09)
[2020-11-23] MEDS: ferrous sulfate EC 325 mg Tablet PO (18:09)
[2020-11-23 20:12] LABS: Glucose Point of Care 184 mg/dL (70-110)
[2020-11-23] MEDS: metoprolol tartrate 25 mg Tablet PO (21:17)
[2020-11-23] MEDS: atorvastatin 40 mg Tablet PO (21:17)
[2020-11-23] MEDS: sennosides 8.6 mg Tablet 17.2 MG PO (21:17)
[2020-11-24] VITALS (12 sets, daily range): BP systolic 100–157; BP diastolic 43–60; PULSE 58–77; RESP 12–23; TEMP 36.6–37.4; O2SAT 91–100
[2020-11-24] MEDS: acetaminophen 325 mg Tablet PO (04:00)
[2020-11-24 06:09] LABS: Basophils # 0.1 10^3/uL (0.0-0.1); Basophils % 0.5 %; Eosinophils # 0.3 10^3/uL (0.0-0.8); Eosinophils % 2.5 %; Hematocrit 38.4 % (37.0-47.0); Hemoglobin 11.9 g/dL (11.5-15.3); Lymphocytes # 2.6 10^3/uL (0.8-4.8); Lymphocytes % 23.8 %; Mean Corpuscular Hemoglobin 30.7 pg (28.0-34.0); Mean Corpuscular Volume 99.2 fL (81-99); Mean Platelet Volume 9.5 fL (7.4-10.4); Monocytes # 1.5 10^3/uL (0.2-0.9); Monocytes % 14.1 %; Neutrophils # 6.37 10^3/uL (1.8-7.7); Neutrophils % 58.5 %; Nucleated Red Blood Cells % 0 %; Platelet Count 201 10^3/cmm (130-400); Red Blood Count 3.87 10^6/uL (4.1-5.3); Red Cell Distribution Width 14.4 % (12.1-15.1); White Blood Count 10.9 10^3/uL (4.0-10.0)
[2020-11-24 06:33] LABS: Estmated Average Glucose 114; Hemoglobin A1C 5.6 % (4.0-6.0)
[2020-11-24 06:44] LABS: Alanine Aminotransferase < 5 U/L (0-33); Alkaline Phosphatase 63 IU/L (35-105); Anion Gap 13.4 (5-19); Aspartate Amino Transferase 12 U/L (0-32); Blood Urea Nitrogen 19 mg/dL (8-23); Calcium 8.4 mg/dL (8.5-10.5); Carbon Dioxide 26 mmol/L (22-29); Chloride 100 mmol/L (98-107); Chol HDL Ratio 6.72 mg/dL (0.0-4.40); Cholesterol 168 mg/dL (0-200); Globulin 2.7 g/dL (1.3-4.6); Glucose 106 mg/dL (65-115); HDL Cholesterol 25 mg/dL (60-100); LDL Cholesterol Calculated 110 mg/dL (50-129); Osmolality Calculated 283 mOsm/kg (285-295); Potassium 4.4 mmol/L (3.5-5.1); Sodium 135 mmol/L (136-145); Total Bilirubin 0.7 mg/dL (0.15-1.2); Total Protein 5.7 g/dL (6.6-8.7); Triglycerides 163 mg/dL (0-150); VLDL Cholestrol Calculation 33 mg/dL (0-30)
[2020-11-24 06:49] LABS: Glucose Point of Care 110 mg/dL (70-110)
--- NOTE | 2020-11-24 07:00 | NMCV_ITS ---
NM james perf SPECT r/s* [id number] Rebeka Anderson Age: 85 Gender: F : 1935 Exam Date: 11/24/2020 07:00 Ordering Phys: Moi Do MD Technologist: ASHU Guerrier Exam Location: [facility] Indications: CHEST PAIN STRESS TEST Please see separate stress test report in [facility] for full findings IMAGE PROTOCOL Rest/Stress 1 Lexiscan Day Radiopharmaceutical Dose (mCi) Administration Site Administered by Rest: Tc-99m 10.6 IV ASHU Zavala Sestamibi Stress:Tc-99m 32.9 IV ASHU Zavala Sestamibi Rest: 24-Nov-2020 60 Discovery 630 Stress: 24-Nov-2020 30 Discovery 630 0.4mg Lexiscan. Supine position only as patient was unable to lay prone. SPECT RESULTS Technical Quality: Good Raw Data Analysis: Normal Image Corrections: No attenuation or motion correction applied Summed Stress Score: 7 Summed Rest Score: 5 Summed Difference Score: 2 PERFUSION FINDINGS Medium-sized area of patchy reversibility noted in basal to distal inferior and basal to distal inferolateral wall on the stress images suggestive of possible moderate ischemia in circumflex territory. Please note that patient was not able to perform the prone images therefore cannot rule out artifact. FUNCTIONAL RESULTS (calculated via Gated SPECT) Stress Image LV EF (%): 85 Stress EDV (mL):61 TID: 1.28 Stress ESV (mL):9 Rest Image LV EF (%): 85 FUNCTIONAL FINDINGS: There is normal left ventricular systolic function. IMPRESSIONS Medium-sized area of moderate ischemia noted in basal to distal inferior and basal to distal inferolateral wall suggestive of possible lesion in circumflex or dominant RCA territory. Please note that patient was not able to perform the prone images therefore artifact cannot be ruled out since there is no wall motion abnormality.TID ratio is elevated which could be secondary to multivessel coronary artery disease versus left ventricle hypertrophy/subendocardial ischemia. Clinical correlation advised. Katelyn Dave MD (Electronically Signed) Final Date: 24 November 2020 15:06 S
[2020-11-24] MEDS: sertraline 100 mg Tablet PO (08:20)
[2020-11-24] MEDS: clopidogrel 75 mg Tablet PO (08:20)
[2020-11-24] MEDS: pantoprazole DR 40 mg Tablet PO (08:21)
[2020-11-24] MEDS: aspirin 81 mg EC Tablet PO (08:21)
[2020-11-24] MEDS: ferrous sulfate EC 325 mg Tablet PO ×2 (08:22→17:43)
[2020-11-24] MEDS: psyllium powder Pkt 1 PACKET PO ×2 (08:23→17:43)
[2020-11-24] MEDS: regadenoson 0.4 Mg/5 ml Syringe IVP (09:43)
[2020-11-24] MEDS: ondansetron 2 mg/ML SDV 2 mL 4 MG IVP (10:00)
[2020-11-24] MEDS: metoprolol tartrate 25 mg Tablet PO ×2 (11:31→20:57)
[2020-11-24] MEDS: lisinopril 10 mg Tablet PO (11:31)
[2020-11-24] MEDS: enoxaparin 80 mg/0.8 mL Syringe SUBCUT ×2 (11:32→20:56)
[2020-11-24 12:11] LABS: Glucose Point of Care 120 mg/dL (70-110)
--- NOTE | 2020-11-24 13:29 | ECG_ITS ---
[facility] Test Date: 2020-11-24 Pat Name: Rebeka Anderson Department: Room: 104 Gender: Female Director Broadcast: : 1935 Requested By: Meño Matute Order Number: [id number] Rodrigue MD: Chaim Ford M.D. Measurements Intervals [place] Rate: 63 P: 37 TX: 165 QRS: 5 QRSD: 79 T: 21 QT: 435 QTc: 448 Interpretive Statements SINUS RHYTHM Compared to ECG 11/23/2020 02:06:00 Myocardial infarct finding no longer present Electronically Signed On 11-24-2020 18:51:22 CDT by Chaim Ford M.D. [id number]
[2020-11-24] MEDS: nitroglycerin 0.4 mg sublingual Tablet SUBLINGUAL (13:36)
--- NOTE | 2020-11-24 13:51 | PC.NURSE ---
Dr. Matute updated on patient condition. Patient reports chest pain to medial chest that radiates to left shoulder blade and arm. Patient appears short of breath, denies nausea. 12 lead EKG obtained per protocol, 1 SL nitro administered. Verbal order to administer imdur 30 mgg PO now and start patient on daily schedule. RBVO. Nurse to continue to monitor.
[2020-11-24] MEDS: isosorbide mononitrate ER 30 mg Tablet PO (14:14)
--- NOTE | 2020-11-24 15:42 | PM.PN ---
Subjective Subjective: Interval history: Patient was seen and examined this morning, no acute events overnight, in the afternoon she was complaining of epigastric chest pain, for which she was given sublingual nitro, to which she responded well, she was also started on imdur. Stress test was done. Stress test she was also complaining of weakness. Vitals/I&O/Wt Last Vital Signs Temp 98.5 F 11/24/20 11:29 Pulse 63 11/24/20 13:29 Resp 13 11/24/20 11:29 BP 157/60 11/24/20 11:29 Pulse Ox 98 11/24/20 11:29 11/24/20 11/24/20 11/24/20 06:59 14:59 22:59 Intake Total 120 / 942 Output Total 100 / 550 Balance 20 / 392 Weight last 48 hrs Weight 81.647 kg Physical Exam Const: COMMON NORMALS: patient oriented x3 HENMT: COMMON NORMALS: normocephalic and atraumatic HEAD & SCALP: normocephalic and atraumatic Chest: CHEST: Yes Symmetrical chest wall rise Resp: COMMON NORMALS: clear to auscultation bilaterally AUSCULTATION: clear to auscultation bilaterally Cardio: COMMON NORMALS: regular rate, regular rhythm, S1 normal heart sound present, S2 normal heart sound present, No gallops present (Cardio), No murmurs present (Cardio), No rub (Cardio) and Peripheral pulses 2+ throughout RATE: regular rate RHYTHM: regular rhythm HEART SOUNDS: S1 normal heart sound present and S2 normal heart sound present PERIPHERAL PULSES: Peripheral pulses 2+ throughout GI: COMMON NORMALS: Normal to inspection, nondistended, normoactive bowel sounds present, Soft to palpation, non-tender and no masses AUSCULTATION: Yes normoactive bowel sounds PALPATION: Yes Soft to palpation RECTAL EXAM: deferred Extremity: COMMON NORMALS: no clubbing, cyanosis or edema and no pedal edema Neuro: COMMON NORMALS: patient oriented x3 Data : 11/24/20 04:44 11/24/20 04:44 A&P Assessment and plan (1) NSTEMI (non-ST elevated myocardial infarction): Status: Acute (2) Carotid stenosis: Status: Acute Qualifiers: Laterality: unspecified laterality Qualified Code(s): I65.29 - Occlusion and stenosis of unspecified carotid artery (3) Diabetes mellitus: Status: Acute (4) Hypertension: Status: Acute Additional A&P Information # NSTEMI Troponin cycle trended up. Repeat troponin. S/P nuclear stress test: Medium-sized area of moderate ischemia noted in basal to distal inferior and basal to distal inferolateral wall suggestive of possible lesion in circumflex or dominant RCA territory. Continue on aspirin, Plavix, statin. Lovenox full dose. Metoprolol 25 mg twice daily, lisinopril 10 mg. Will uptitrate as per blood pressure. Check lipid panel, HbA1c. Appreciate cardiology input Hypertension: Goal blood pressure less than 140/90 mmHg. Management as above. Will uptitrate accordingly. History of DVT: Has been on Eliquis for last 1 month. Currently having taken for last 15 days as ran out of the prescription. CTA done last night negative for PE. Continue Lovenox 1 mg/kg body weight as per creatinine clearance 12 hourly. Will also help with non-STEMI. History of type 2 diabetes mellitus: Check HbA1c. Insulin as low-dose protocol before meals and at bedtime. Abdominal pain/back pain: CT abdomen pelvis without contrast, CT lumbar spine to rule out colitis, constipation, kidney stones. Check iron panel, TSH. Continue chronic home medication including sertraline. Cardiac diet. Full code. Full dose Lovenox will also help with DVT prophylaxis. PT/OT evaluation. Attestations Medical Necessity Statement*: Patient needs to be in hospital for management of NSTEMI. 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
[2020-11-24 17:20] LABS: Glucose Point of Care 133 mg/dL (70-110)
[2020-11-24 20:24] LABS: Glucose Point of Care 160 mg/dL (70-110)
[2020-11-24] MEDS: ALPRAZolam 0.25 mg Tablet PO (20:57)
[2020-11-24] MEDS: sennosides 8.6 mg Tablet 17.2 MG PO (20:57)
[2020-11-24] MEDS: atorvastatin 40 mg Tablet PO (20:58)
--- NOTE | 2020-11-24 21:08 | P.CONIM_ITS ---
Providers/Reason For Consult Consulting Physician/Specialty*: Cardiology Reason for Consult*: Abnormal stress test, chest pain Attending Physician: Meño Matute MD Primary Care Provider: Alirio Dubon DO History of Present Illness History of Present Illness Rebeka Anderson is a 85 year old female past medical history significant for hypertension hyperlipidemia carotid artery disease anemia history of diabetes mellitus, diabetic colitis, history of colostomy presented with right side chest upper shoulder and abdominal pain which is going on for the past few days getting worse. She has abnormal delta elevation of the troponin, she underwent stress test showed reversibility in the inferior and inferolateral region since prone images were not performed therefore cannot rule out artifact. Patient says she is otherwise pretty active and moves around at home. Since she has a positive stress test and atypical chest pain further exploration with left heart cath was recommended but patient wishes to be treated medically. I agree with her as well. I have discussion with the patient and her granddaughter by bedside at this point consensus is medical management if it does not work she will think about angiogram. Review of Systems General: Reports: 10 or more systems reviewed and unremarkable except in HPI and below Const: Reports: body aches and fatigue Eyes: Denies: change in vision ENMT: Denies: throat pain Card: Reports: chest pain and dyspnea on exertion Resp: Reports: dyspnea and pain on inspiration GI: Denies: abdominal pain : Denies: flank pain Musc: Denies: neck pain Skin/Breast: Denies: rash Neuro: Denies: headache(s) Psych: Reports: anxiety Endo: Denies: polyuria Kaleb/Lymph: Denies: easy bruising All/Imm: Denies: urticaria Meds/Allergies Home Medications and Allergies Home Medications Medication Instructions Recorded Confirmed Last Taken Type alprazolam 0.25 mg tablet 0.25 mg PO BID PRN 03/06/20 11/23/20 11/22/20 10:00 History metformin 500 mg tablet 500 mg PO BID 03/06/20 11/23/20 11/22/20 10:00 History metoprolol tartrate 25 mg tablet 25 mg PO BID 03/06/20 11/23/20 11/22/20 10:00 History sertraline 100 mg tablet 100 mg PO DAILY 03/06/20 11/23/20 11/21/20 10:00 History apixaban 5 mg PO BID 30 Days #60 tab 11/25/20 Unknown Rx aspirin 81 mg PO DAILY 30 Days #30 tab 11/25/20 Unknown Rx atorvastatin 40 mg PO BEDTIME 30 Days #30 tab 11/25/20 Unknown Rx isosorbide mononitrate 30 mg PO DAILY 30 Days #30 tab 11/25/20 Unknown Rx lisinopril 10 mg PO DAILY 30 Days #30 tab 11/25/20 Unknown Rx nitroglycerin 0.4 mg SUBLINGUAL Q5M PRN #30 tab 11/25/20 Unknown Rx Allergies Allergy/AdvReac Type Severity Reaction Status Date / Time No Known Allergies Allergy Verified 10/28/20 15:53 Current Medications Current Medications Generic Name Dose Route Start Last Admin Trade Name Freq PRN Reason Stop Dose Admin Acetaminophen 325 mg 11/23/20 09:07 11/24/20 04:00 Acetaminophen 325 Mg Tablet PO 325 mg Q4H PRN Administration MILD PAIN OR INCREASE TEMP Alprazolam 0.25 mg 11/23/20 01:42 11/24/20 20:57 Alprazolam 0.25 Mg Tablet PO 0.25 mg BID PRN Administration AGITATION Aspirin 81 mg 11/23/20 09:00 11/24/20 08:21 Aspirin 81 Mg Ec Tablet PO 81 mg DAILY JENNA Administration Atorvastatin Calcium 40 mg 11/23/20 21:00 11/24/20 20:58 Atorvastatin 40 Mg Tablet PO 40 mg BEDTIME JENNA Administration Clopidogrel Bisulfate 75 mg 11/23/20 09:00 11/24/20 08:20 Clopidogrel 75 Mg Tablet PO 75 mg DAILY JENNA Administration Enoxaparin Sodium 80 mg 11/23/20 11:00 11/24/20 20:56 Enoxaparin 80 Mg/0.8 Ml Syringe SUBCUT 80 mg Q12H JENNA Administration Ferrous Sulfate 325 mg 11/23/20 18:00 11/24/20 17:43 Ferrous Sulfate Ec 325 Mg Tablet PO 325 mg BIDWM JENNA Administration Insulin Aspart 0 unit 11/23/20 12:00 11/24/20 20:32 Insulin Aspart 100 Unit/1 Ml SUBCUT Not Given WM&BEDTIME [facility] Protocol Isosorbide Mononitrate 30 mg 11/24/20 14:15 11/24/20 14:14 Isosorbide Mononitrate Er 30 Mg Tablet PO 30 mg DAILY JENNA Administration Lisinopril 10 mg 11/23/20 01:14 11/24/20 11:31 Lisinopril 10 Mg Tablet PO 10 mg DAILY JENNA Administration Metoprolol Tartrate 25 mg 11/23/20 21:00 11/24/20 20:57 Metoprolol Tartrate 25 Mg Tablet PO 25 mg BID@0900,2100 JENNA Administration Nitroglycerin 0.4 mg 11/24/20 06:17 11/24/20 13:36 Nitroglycerin 0.4 Mg Sublingual Tablet SUBLINGUAL 11/25/20 06:16 1 tab Q5M PRN Administration CHEST PAIN Ondansetron HCl 4 mg 11/23/20 00:55 11/23/20 01:57 Ondansetron 2 Mg/Ml Sdv 2 Ml IVP 4 mg Q6H PRN Administration NAUSEA AND VOMITING Ondansetron HCl 4 mg 11/24/20 06:17 11/24/20 10:00 Ondansetron 2 Mg/Ml Sdv 2 Ml IVP 4 mg Q2M PRN Administration NAUSEA Pantoprazole Sodium 40 mg 11/23/20 15:15 11/24/20 08:[address] 40 Mg Tablet PO 40 mg DAILY JENNA Administration Psyllium Hydrophilic Mucilloid 1 packet 11/23/20 18:00 11/24/20 17:43 Psyllium Powder Pkt PO 1 packet BID JENNA Administration Senna 17.2 mg 11/23/20 21:00 11/24/20 20:57 Sennosides 8.6 Mg Tablet PO 17.2 mg BEDTIME JENNA Administration Sertraline HCl 100 mg 11/23/20 09:36 11/24/20 08:20 Sertraline 100 Mg Tablet PO 100 mg DAILY JENNA Administration PFSH Acute PFSH: Medical History Carotid stenosis Cataract Diabetes mellitus Diverticulitis GI bleed Hypertension Migraine T3 vertebral fracture TIA (transient ischemic attack) Vertigo Surgical History H/O colectomy History of appendectomy History of cholecystectomy History of right-sided carotid endarterectomy Family History Mother Hypertension Brother Aneurysm Sister Aneurysm Social History Smoking and tobacco status: former smoker Alcohol intake: never Vitals/I&O/Wt Last Vital Signs Temp 98 F 11/24/20 19:23 Pulse 71 11/24/20 19:23 Resp 23 H 11/24/20 19:23 BP 111/58 11/24/20 19:23 Pulse Ox 92 11/24/20 19:23 11/24/20 11/24/20 11/24/20 06:59 14:59 22:59 Intake Total 120 / 942 Output Total 100 / 550 Balance 20 / 392 Physical Exam Narrative: EXAM NARRATIVE: GENERAL: Patient is alert, awake and oriented x3. NECK: No jugular vein distension. HEENT: No cyanosis. No icterus. No pallor. HEART: Regular S1 and S2. No murmur, rub or gallop. LUNGS: Clear to auscultate bilaterally. ABDOMEN: Soft, nontender and nondistended. Positive bowel sounds. No guarding, rebound or tenderness. CENTRAL NERVOUS SYSTEM: Grossly nonfocal. EXTREMITIES: Lower extremities without edema bilaterally. A&P Assessment and plan (1) Abnormal stress test: Patient has abnormal stress test with atypical chest pain she has a better elevation of the cardiac markers. She may have underlying coronary artery disease however she would like to be treated medically. We will continue to optimize medicine. Continue aspirin statin isosorbide mononitrate and low-dose beta-mayra. Further plan will be advised as per progress of the patient. Status: Acute (2) Carotid stenosis: Continue aspirin Plavix and statin Status: Acute Qualifiers: Laterality: unspecified laterality Qualified Code(s): I65.29 - Occlusion and stenosis of unspecified carotid artery (3) Hypertension: Well-controlled continue medicine Status: Acute Consult Attestations Medical Necessity Statement: Patient require continuation hospitalization for above defined care. 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
[2020-11-25 03:55] VITALS: BP 146/50; PULSE 69; RESP 26; TEMP 36.6; O2SAT 92
[2020-11-25 06:00] VITALS: PULSE 69
[2020-11-25 06:51] LABS: Glucose Point of Care 109 mg/dL (70-110)
[2020-11-25 07:32] VITALS: BP 162/74; PULSE 79; RESP 22; TEMP 37.6; O2SAT 93
[2020-11-25] MEDS: ferrous sulfate EC 325 mg Tablet PO (08:22)
[2020-11-25] MEDS: aspirin 81 mg EC Tablet PO (08:22)
[2020-11-25] MEDS: clopidogrel 75 mg Tablet PO (08:23)
[2020-11-25] MEDS: metoprolol tartrate 25 mg Tablet PO (08:24)
[2020-11-25] MEDS: isosorbide mononitrate ER 30 mg Tablet PO (08:24)
[2020-11-25] MEDS: lisinopril 10 mg Tablet PO (08:24)
[2020-11-25] MEDS: pantoprazole DR 40 mg Tablet PO (08:25)
[2020-11-25] MEDS: acetaminophen 325 mg Tablet PO (08:26)
[2020-11-25] MEDS: sertraline 100 mg Tablet PO (08:26)
[2020-11-25] MEDS: psyllium powder Pkt 1 PACKET PO (08:31)
[2020-11-25] MEDS: enoxaparin 80 mg/0.8 mL Syringe SUBCUT (10:23)
--- NOTE | 2020-11-25 11:04 | PC.SOCIAL ---
MM update IMM updated with patient and granddaughter at bedside. They verbalized an understanding. Copy provided, copy placed in chart, dated, timed,and initialed.
[2020-11-25 11:36] VITALS: BP 124/45; PULSE 55; RESP 18
--- NOTE | 2020-11-25 11:54 | PM.DCS ---
Discharge Providers Date of Admission: 11/22/20 23:00 Date of Discharge: November 25, 2020 Attending Provider at Admission: Katelyn Magaña MD Attending Provider at Discharge: Meño Matute MD Primary Care Provider: Alirio Dubon DO Diagnoses at Discharge Discharge Diagnosis (1) NSTEMI (non-ST elevated myocardial infarction): Status: Resolved (2) Abnormal stress test: Status: Acute (3) Carotid stenosis: Status: Chronic Qualifiers: Laterality: unspecified laterality Qualified Code(s): I65.29 - Occlusion and stenosis of unspecified carotid artery (4) Hypertension: Status: Chronic (5) DVT (deep venous thrombosis): Status: Chronic (6) Diabetes mellitus: Status: Chronic (7) Ventral incisional hernia without obstruction or gangrene: Status: Acute Reason for Visit Reason for Visit: chest pain Hospital Course Hospital Course 85-year-old female with past medical history of hypertension, diabetes, right lower extremity DVT on Eliquis, was admitted with chief complaint of chest pain, further work-up done during the hospital stay was in line with NSTEMI. CTA ruled out PE, troponin trend showed significant delta , EKG without ischemic or infarctive changes. She was kept on ACS protocol, she underwent nuclear stress test:Medium-sized area of moderate ischemia noted in basal to distal inferior and basal to distal inferolateral wall suggestive of possible lesion in circumflex or dominant RCA territory. 2D echo: Normal left ventricular size and systolic function, EF 76 %. Mild left ventricular hypertrophy. Grade I/IV diastolic dysfunction (abnormal relaxation filling pattern), normal to mildly elevated filling pressures. Moderate to heavy mitral annular calcification.trace mitral valve regurgitation. Thickened aortic valve. Trace aortic valve regurgitation. Mildly increased left atrial size. Cardiology was on board, family decided that it would be prudent to continue with medical management for now.She was not willing to undergo any invasive procedure for now. she was continued on aspirin, statin,isosorbide mononitrate and low-dose beta-mayra as well as on Eliquis.She will continue to follow-up with cardiology as an outpatient. During the hospital stay surgery was also consulted as there was some concern regarding the incidental CT scan of the abdomen and pelvis finding of chronic incarcerated ventral incisional hernia status post open sigmoid colectomy for complicated diverticulitis about 20 years ago. She had ventral incisional hernia without obstruction or gangrene.From surgical standpoint there was no indication for acute surgical intervention.She was advise Metamucil Bid and avoid laxatives and focus on oral hydration . Patient overall responded well to the above medical management and was discharged in stable condition. She will follow Dr. Dave as an outpatient. Physical Exam Const: COMMON NORMALS: patient oriented x3 HENMT: COMMON NORMALS: normocephalic and atraumatic HEAD & SCALP: normocephalic and atraumatic Chest: CHEST: Yes Symmetrical chest wall rise Resp: COMMON NORMALS: clear to auscultation bilaterally AUSCULTATION: clear to auscultation bilaterally Cardio: COMMON NORMALS: regular rate, regular rhythm, S1 normal heart sound present, S2 normal heart sound present, No gallops present (Cardio), No murmurs present (Cardio), No rub (Cardio) and Peripheral pulses 2+ throughout RATE: regular rate RHYTHM: regular rhythm HEART SOUNDS: S1 normal heart sound present and S2 normal heart sound present PERIPHERAL PULSES: Peripheral pulses 2+ throughout GI: COMMON NORMALS: Normal to inspection, nondistended, normoactive bowel sounds present, Soft to palpation, non-tender and no masses AUSCULTATION: Yes normoactive bowel sounds PALPATION: Yes Soft to palpation RECTAL EXAM: deferred Extremity: COMMON NORMALS: no clubbing, cyanosis or edema and no pedal edema Neuro: COMMON NORMALS: patient oriented x3 Discharge Data Data Completed and Pending: Completed Studies During Hospitalization Category Date Time Status CT abdomen pelvis wo con [id number] Rout ine Cat Scan 11/23/20 12:[address] angio chest PE protcl [id number] Stat Cat Scan 11/22/20 20:[address] lumbar spine w o con* [id number] Routi ne Cat Scan 11/23/20 12:41 Completed Sestamibi Stress Test Request Routi ne Exams 11/23/20 09:05 Completed XR chest 1V naty ble [id number] Stat Exams 11/22/20 18:52 Completed NM james perf SPECT r/s* [id number] Routin e Nuc Med 11/24/20 07:00 Completed CV echo complete* [id number] Routine Ultrasound 11/23/20 00:33 Completed Labs from last 24 hours 11/25/20 11/24/20 11/24/20 06:40 19:34 17:10 POC Glucose 109 160 H 133 H 11/24/20 11:30 POC Glucose 120 H Vitals: Last Vital Signs Temp 99.7 F H 11/25/20 07:32 Pulse 55 L 11/25/20 11:36 Resp 18 11/25/20 11:36 BP 124/45 11/25/20 11:36 Pulse Ox 93 11/25/20 07:32 Discharge Plan Discharge Patient Disposition: Home Condition: Stable Prescriptions: New atorvastatin 40 mg Tablet 40 mg PO BEDTIME 30 Days Qty: 30 RF: 3 isosorbide mononitrate 30 mg Tablet Extended Release 24 Hr 30 mg PO DAILY 30 Days Qty: 30 RF: 3 aspirin 81 mg Tablet,Delayed Release (Dr/Ec) 81 mg PO DAILY 30 Days Qty: 30 RF: 3 lisinopril 10 mg Tablet 10 mg PO DAILY 30 Days Qty: 30 RF: 3 nitroglycerin 0.4 mg tablet, sublingual 0.4 mg sublingual Q5M PRN (Reason: chest pain) Qty: 30 RF: 1 Continued metoprolol tartrate 25 mg tablet 25 mg PO BID RF: 0 metformin 500 mg tablet 500 mg PO BID RF: 0 alprazolam 0.25 mg tablet 0.25 mg PO BID PRN (Reason: Anxiety) RF: 0 sertraline 100 mg tablet 100 mg PO DAILY RF: 0 apixaban 5 mg tablet 5 mg PO BID 30 Days Qty: 60 RF: 3 Discharge Orders: Discharge Order (Routine); Ordered 11/25/20 Ordered By: Meño Matute Referrals: Katelyn Dave MD [Physician] - 1 month (Please follow-up with Dr. Dave on December 18 at 12:30P.M. If you any questions or need to reschedule. Please call ) [facility], [Staff Physician] - (Someone from [facility] will be contacting you to set up a date to admit you to their services. Thier number is [phone] if you have any questions please give them a call.) Discharge Diet: Diabetic Discharge Activity: Resume usual activity Patient Instructions: Nitroglycerin (By mouth), Lisinopril (By mouth), Aspirin (By mouth), Isosorbide Mononitrate (By mouth), Atorvastatin (By mouth), Myocardial Infarction (DC), Chest Pain (DC), Hypertension (DC), Chest Pain Stoplight Discharge Attestations Time Spent in Discharge Care*: greater than 30 min Specific Discharge Activities: educating patient, educating and/or supporting family/caregiver, discussing with pcp/other providers, discussing with director case management/social workers/dc planners, documenting/other paperwork and evaluating patient/reviewing data Status at Discharge: Cognitive status at discharge: cognitively intact, Behavioral status at discharge: cooperative, Functional status at discharge: independent ambulation Overall status at discharge: patient is back to baseline Quality Metrics Clinical Quality Measures During this hospital stay, did patient experience: None Coding Level of Care Code Acute Chg FW DC note Diagnoses NSTEMI (non-ST elevated myocardial infarction) I21.4 Abnormal stress test R94.39 Carotid stenosis I65.29 Laterality: unspecified laterality Hypertension I10 DVT (deep venous thrombosis) I82.409 Diabetes mellitus E11.9 Ventral incisional hernia without obstruction or gangrene K43.2
[2020-11-25 12:01] LABS: Glucose Point of Care 124 mg/dL (70-110)
--- NOTE | 2020-11-25 14:07 | PC.NURSE ---
Discharge instructions given per the physician's orders. Patient and granddaughter verbalized understanding of teaching and did not have any further questions. IV has been removed. Patient granddaughter helping patient get dressed. No further needs identified at this time.
[2020-11-25 14:18] VITALS: BP 124/45
--- NOTE | 2020-11-25 18:24 | PM.PN ---
Subjective Subjective: Interval history: Denies any more chest pain. Medications: Reviewed: Yes Vitals/I&O/Wt Last Vital Signs Temp 99.7 F H 11/25/20 07:32 Pulse 55 L 11/25/20 11:36 Resp 18 11/25/20 11:36 BP 124/45 11/25/20 14:18 Pulse Ox 93 11/25/20 07:32 11/25/20 11/25/20 11/25/20 06:59 14:59 22:59 Intake Total 240 / 360 Output Total 100 / 340 Balance 140 / 20 Physical Exam Narrative: EXAM NARRATIVE: GENERAL: Patient is alert, awake and oriented x3. NECK: No jugular vein distension. HEENT: No cyanosis. No icterus. No pallor. HEART: Regular S1 and S2. No murmur, rub or gallop. LUNGS: Clear to auscultate bilaterally. ABDOMEN: Soft, nontender and nondistended. Positive bowel sounds. No guarding, rebound or tenderness. CENTRAL NERVOUS SYSTEM: Grossly nonfocal. EXTREMITIES: Lower extremities without edema bilaterally. Data : 11/24/20 04:44 11/24/20 04:44 A&P Assessment and plan (1) Abnormal stress test: Patient has abnormal stress test with atypical chest pain she has a better elevation of the cardiac markers. She may have underlying coronary artery disease however she would like to be treated medically. We will continue to optimize medicine. Continue aspirin statin isosorbide mononitrate and low-dose beta-mayra. Further plan will be advised as per progress of the patient. Currently patient doing fine from cardiovascular perspective. She would like to be treated medically first and see how she does. She is not interested in invasive strategy. I will follow her up in the clinic. 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
== END 2020-11-25 14:25 | disposition home health service (06) | DRG 281 ==
LOC: ER 18:56 → CSU 23:31
PROVIDERS: Student in an Organized Health Care Education/Training Program; Admitting Provider Internal Medicine; Emergency Provider Family Medicine; PCP Family Medicine; Visit Provider Internal Medicine
DX: I21.4 Non-ST elevation (NSTEMI) myocardial infarction (principal); I82.5Z1 Chronic embolism and thrombosis of unspecified deep veins of right distal lower extremity; Z90.49 Acquired absence of other specified parts of digestive tract; E11.9 Type 2 diabetes mellitus without complications; I10 Essential (primary) hypertension; Z86.73 Personal history of transient ischemic attack (TIA), and cerebral infarction without residual deficits; Z87.891 Personal history of nicotine dependence; K43.2 Incisional hernia without obstruction or gangrene; I25.10 Atherosclerotic heart disease of native coronary artery without angina pectoris; R94.39 Abnormal result of other cardiovascular function study; I65.29 Occlusion and stenosis of unspecified carotid artery; Z79.84 Long term (current) use of oral hypoglycemic drugs
CPT/HCPCS: 36415; 36416; 71045; 71275; 72131; 74176; 78452; 80048; 80053; 80061; 82728; 82962; 83036; 83540; 83550; 83690; 83880; 84443; 84484; 85025; 93005; 93017; 93306; 96365; 96366; 96372; 96375; 97110; 97161; 97530; 99285; A9500; J1650; J1815; J2270; J2405; J2785; J3010; J3490; Q9967

== ENCOUNTER 2020-12-26 10:55 | Outpatient (CLI) | payer MEDICARE, SELFPAY ==
--- NOTE | 2020-12-26 11:00 | USCV_ITS ---
Rebeka Anderson Age: 85 Gender: F : 1935 Exam Date: 12/26/2020 11:17 Ordering Phys: Arvin Lai MD (And[email or web address] [place] Technologist: Tata Perez [place] [facility] [place]ication: carotid stenosis Risk Factors: None Previous Vascular Surgery: R CEA Right Brachial BP: / Left Brachial BP: / Right Left Velocity (cm/s) Spectral Plaque Velocity (cm/s) Spectral Plaque Syst/Diast Broadening Syst/Diast Broadening 66.80/ 7.80 Prox CCA 122.30/ 25.20 112.50/6.60 Josep Mid CCA 76.20 / 10.50 Josep 62.80/ 11.00 Josep Distal CCA 67.00 / 13.10 Josep 117.00/18.40 Hetro Prox ICA 116.50/ 18.60 77.20/ 11.00 Mid ICA 108.80/ 23.30 72.80/ 15.40 Distal ICA 118.10/ 30.60 129.00 Hetro ECA 98.60 Hetro 1.04 ICA/CCA 0.97 Antegrade Vertebral Antegrade 47.40/ 9.30 cm/s 47.90/ 12.80 cm/s Tri Subclavian Tri 154.7 133.4 0 0 CONCLUSIONS Right ICA stenosis <50%. Moderate calcified atheromatous plaque right carotid bulb/ICA. Left ICA stenosis <50%. Moderate calcified atheromatous plaque left carotid bulb/ICA. Normal antegrade Doppler flow noted in the right vertebral artery. Normal antegrade Doppler flow noted in the left vertebral artery. Luis Segura MD (Electronically Signed) Final Date: 26 December 2020 17:26 S
== END 2020-12-26 10:56 | disposition home or self-care (01) ==
LOC: US 10:57
PROVIDERS: PCP Family Medicine; Visit Provider Thoracic Surgery (Cardiothoracic Vascular Surgery)
DX: I65.23 Occlusion and stenosis of bilateral carotid arteries (principal)
CPT/HCPCS: 93880

== ENCOUNTER 2021-05-06 12:44 | Outpatient (CLI) | payer MEDICARE, SELFPAY ==
--- NOTE | 2021-05-06 12:55 | XR_ITS ---
WS: [id number] Pelvis, AP view, 05/06/2021 Clinical Data: PELVIC PAIN/WEAKNESS Comparison: None. Findings: No fractures or dislocations are seen. The SI joints and pubic symphysis are intact. The soft tissues are not remarkable. There is osteoarthritic spurring of the acetabular lips. Vascular calcification is present. There are phleboliths in the inguinal region. There are clips overlying the left sacrum from surgery. XR/XR pelvis 1-2V* [id number] Impression: Moderate osteoarthritis of both hips.
--- NOTE | 2021-05-06 12:55 | XR_ITS ---
WS: [id number] Chest 2 views, 05/06/2021 Clinical Data: DYSPNEA/WEAKNESS Comparison: Portable chest, 11/22/2020. Findings: No nodules, masses or effusions are seen. The heart is normal. The pulmonary vascularity is not increased. No pneumonia or pneumothorax is seen. The aortic arch shows calcification and tortuos ity. There is a calcified cardiac valve. There are synovial calcifications in the left shoulder. XR/XR chest 2V* [id number] Impression: Atherosclerosis.
--- NOTE | 2021-05-06 12:55 | XR_ITS ---
WS: [id number] Left shoulder, 3 views, 05/06/2021 Clinical Data: L SHOULDER PAIN/WEAKNESS Comparison: None. Findings: No fractures or dislocations are seen. There is narrowing of the left shoulder joint. The AC joint is normal. The adjacent left clavicle, left scapula and ribs are normal. The soft tissues are unremarka ble. There are calcifications in the left humeral neck which are incidental findings. XR/XR shoulder LT min 2V* [id number] Impression: Osteoarthritis of left shoulder joint.
[2021-05-06 13:31] LABS: Estmated Average Glucose 105; Hemoglobin A1C 5.3 % (4.0-6.0)
[2021-05-06 13:45] LABS: Hematocrit 39.3 % (37.0-47.0); Hemoglobin 12.3 g/dL (11.5-15.3); Mean Corpuscular HGB Conc 31.3 g/dL (30.0-36.0); Mean Corpuscular Hemoglobin 31.6 pg (28.0-34.0); Mean Platelet Volume 8.9 fL (7.4-10.4); Platelet Count 411 10^3/cmm (130-400); Red Blood Count 3.89 10^6/uL (4.1-5.3); Red Cell Distribution Width 12.1 % (12.1-15.1); White Blood Count 9.4 10^3/uL (4.0-10.0)
[2021-05-06 13:49] LABS: Absolute Eosinophils 0.3 10^3/cmm (0.0-0.7); Absolute Neutrophil 6.3 10^3/cmm (1.4-6.5); Absolute Segmented Neutrophil 6.1 10/cmm (1.6-7.1); Band Neutrophils Absolute 0.2 10^3/cmm (0.0-1.2); Eosinophils 4 %; Lymphocytes 26 %; Lymphocytes Absolute 2.4 10^3/cmm (1.2-3.4); Monocytes Absolute 0.3 10^3/cmm (0.1-0.6); Platelet Estimate Normal (Normal); Segmented Neutrophils 65 %; Total Cells Counted 100 (0-100)
[2021-05-06 14:39] LABS: Alanine Aminotransferase 6 U/L (0-33); Albumin Level 3.9 g/dL (3.5-5.2); Alkaline Phosphatase 97 IU/L (35-105); Anion Gap 16.4 (5-19); Aspartate Amino Transferase 11 U/L (0-32); Blood Urea Nitrogen 33 mg/dL (8-23); Calcium 9.4 mg/dL (8.5-10.5); Carbon Dioxide 26 mmol/L (22-29); Chloride 104 mmol/L (98-107); Globulin 3.1 g/dL (1.3-4.6); Glucose 111 mg/dL (65-115); Osmolality Calculated 300 mOsm/kg (285-295); Potassium 5.4 mmol/L (3.5-5.1); Sodium 141 mmol/L (136-145); Total Bilirubin 0.3 mg/dL (0.15-1.2); Vitamin B12 348 pg/mL (232-1245)
== END 2021-05-06 12:45 | disposition home or self-care (01) ==
PROVIDERS: PCP Family Medicine; Visit Provider Family Medicine
DX: R06.02 Shortness of breath (principal); R10.2 Pelvic and perineal pain; R53.1 Weakness; E11.9 Type 2 diabetes mellitus without complications; I10 Essential (primary) hypertension; R06.00 Dyspnea, unspecified; M19.012 Primary osteoarthritis, left shoulder; M16.0 Bilateral primary osteoarthritis of hip; I70.90 Unspecified atherosclerosis
CPT/HCPCS: 36415; 71046; 72170; 73030; 80053; 82607; 83036; 84443; 85007; 85027

== ENCOUNTER → 2021-10-22 14:40 | Outpatient (BNVA) | payer MEDICARE, SELFPAY | PROVIDERS: PCP Family Medicine; Visit Provider Family Medicine | DX: R06.00 Dyspnea, unspecified (principal); R53.1 Weakness; E11.9 Type 2 diabetes mellitus without complications; E78.5 Hyperlipidemia, unspecified | CPT/HCPCS: 80053; 80061; 82607; 83036; 85025 ==

== ENCOUNTER → 2021-11-19 10:12 | Outpatient (BNVA) | payer MEDICARE, SELFPAY | PROVIDERS: PCP Family Medicine; Visit Provider Family Medicine | DX: R06.00 Dyspnea, unspecified (principal); R53.1 Weakness; E78.5 Hyperlipidemia, unspecified; E53.8 Deficiency of other specified B group vitamins; E11.9 Type 2 diabetes mellitus without complications | CPT/HCPCS: 80048; 80053; 80061; 82607; 83036; 85025 ==

== ENCOUNTER → 2022-05-12 14:16 | Outpatient (BNVA) | payer MEDICARE, SELFPAY | PROVIDERS: PCP Family Medicine; Visit Provider Family Medicine | DX: R53.1 Weakness (principal); I10 Essential (primary) hypertension; E11.9 Type 2 diabetes mellitus without complications; E03.9 Hypothyroidism, unspecified | CPT/HCPCS: 80053; 82607; 83036; 84443; 85025 ==

== ENCOUNTER → 2022-09-13 08:56 | Outpatient (BNVA) | payer MEDICARE, SELFPAY | PROVIDERS: PCP Family Medicine; Visit Provider Family Medicine | DX: M19.90 Unspecified osteoarthritis, unspecified site (principal); R53.1 Weakness; I10 Essential (primary) hypertension; K21.9 Gastro-esophageal reflux disease without esophagitis; E11.9 Type 2 diabetes mellitus without complications | CPT/HCPCS: 80053; 80061; 82607; 83036; 84443 ==

== ENCOUNTER → 2022-10-11 10:14 | Outpatient (BNVA) | payer MEDICARE, SELFPAY | PROVIDERS: PCP Family Medicine; Visit Provider Family Medicine | DX: I10 Essential (primary) hypertension (principal) | CPT/HCPCS: 80048 ==

== ENCOUNTER 2022-11-12 14:52 | Emergency (ER) | payer MEDICARE, SELFPAY ==
[2022-11-12 15:21] VITALS: BP 230/82; PULSE 65; RESP 16; TEMP 36.9; O2SAT 95; BMI 28.7
[2022-11-12 16:53] VITALS: BP 224/92; PULSE 60; RESP 16; O2SAT 97
[2022-11-12 18:45] VITALS: BP 220/98; PULSE 64; O2SAT 95
--- NOTE | 2022-11-12 18:50 | XRR_ITS ---
PROCEDURE INFORMATION: Exam: XR Chest Exam date and time: 11/12/2022 7:04 PM Age: 87 years old Clinical indication: Dyspnea TECHNIQUE: Imaging protocol: Radiologic exam of the chest. Views: 1 view. COMPARISON: CR XR chest 2V* [id number] 05/06/2021 1:29 PM FINDINGS: Lungs: Unremarkable. No consolidation. Pleural spaces: Unremarkable. No pleural effusion. No pneumothorax. Heart/Mediastinum: Mitral annular calcifications. Heart size unchanged. Bones/joints: No acute findings. XR/XR chest 1V portable [id number] IMPRESSION: No acute findings.
[2022-11-12 18:54] LABS: Add Urine Microscopic? NO; Charge for UA Resulting for Rev
--- NOTE | 2022-11-12 19:01 | W.ED.FEMALGU ---
HPI - Female Genitourinary General: Chief complaint: Urogenital-Female Stated complaint: no bladder control, lower back pain Time Seen by Provider: 11/12/22 18:18 Source: patient Mode of arrival: ambulatory Limitations: no limitations History of Present Illness: 87-year-old female who states that she has had bladder control issues over the last 4 to 5 days. States she had a lot more urgency and frequency she also has had some lower leg swelling. She denies any chest pain or shortness of breath. States she has had some mild low back pain she rates a 3 out of 10 denies any difficulty walking. Denies any severe pain denies any fevers. Associated symptoms: Deny abdominal pain, headache(s) or nausea Review of Systems Const: Denies: fever(s), chills, body aches or change in appetite ENMT: Denies: throat pain Card: Denies: chest pain Resp: Denies: dyspnea GI: Denies: abdominal pain, nausea, vomiting or diarrhea : Reports: urinary frequency, urinary urgency and urinary incontinence Musc: Reports: back pain; Denies: neck pain Skin/Breast: Denies: rash Neuro: Denies: headache(s) PFSH ED PFSH: Medical History Abnormal stress test Acid reflux Carotid stenosis Cataract Diabetes mellitus Diverticulitis GI bleed Hypertension Migraine NSTEMI (non-ST elevated myocardial infarction) T3 vertebral fracture TIA (transient ischemic attack) Ventral incisional hernia without obstruction or gangrene Vertigo Surgical History H/O colectomy History of appendectomy History of cholecystectomy History of right-sided carotid endarterectomy Family History Mother Hypertension Brother Aneurysm Sister Aneurysm Social History Smoking and tobacco status: former smoker Alcohol intake: never Substance/Drug Use: never Physical Exam Const: COMMON NORMALS: no acute distress, patient oriented x3 and healthy appearing HENMT: COMMON NORMALS: normocephalic and atraumatic HEAD & SCALP: normocephalic and atraumatic Neck/C-Spine: COMMON NORMALS: full ROM and supple Chest: COMMONS NORMALS: normal inspection of the chest and normal palpation of entire chest wall Resp: COMMON NORMALS: normal respiratory effort, No retractions, No use of accessory muscles and clear to auscultation bilaterally AUSCULTATION: clear to auscultation bilaterally Cardio: COMMON NORMALS: regular rate, regular rhythm and No murmurs present (Cardio) RATE: regular rate RHYTHM: regular rhythm GI: COMMON NORMALS: Normal to inspection, nondistended, normoactive bowel sounds present, Soft to palpation, non-tender and no masses PALPATION: Yes Soft to palpation Back/Pelvis: OTHER: No saddle anesthesia 5 out of 5 strength to bilateral extremities Extremity: COMMON NORMALS: full ROM NARRATIVE EXTREMITY EXAM: 2+ edema to lower ext Neuro: COMMON NORMALS: patient oriented x3, moves all extremities and no focal motor deficits Psych: COMMON NORMALS: mental status grossly normal, Normal thought process present and cooperative THOUGHT PROCESS: Normal thought process present Skin: COMMON NORMALS: no rashes or lesions noted and no wounds GENERAL SKIN EXAM: no rashes or lesions noted Course Vital Signs: Vital signs: Vital Signs Temperature 98.4 F 11/12/22 15:21 Pulse Rate 63 11/12/22 20:57 Respiratory Rate 18 11/12/22 20:57 Blood Pressure 182/90 11/12/22 20:57 Pulse Oximetry 92 11/12/22 20:57 Oxygen Delivery Me thod Room Air 11/12/22 19:23 MDM - Female Medical Decision Making Patient presents here with some urinary incontinence she is also got some leg edema BNP is mildly elevated we will start her on low-dose Lasix at 20 she has no signs of cord compression or epidural abscess her back pain is minimal in nature. Urinary incontinence is likely functional in nature due to her age she has no signs of UTI. She is to follow-up with her PCP as scheduled on Tuesday return if worsening she understands agrees to plan.. Medical Records I reviewed the patient's medical records. Lab Data I reviewed the patient's lab results. 11/12/22 18:46 11/12/22 18:46 Radiology Impressions Chest X-Ray 11/12/22 18:50 IMPRESSION: No acute findings. Abdomen/Pelvis CT 11/12/22 19:08 IMPRESSION: No acute intra-abdominal findings. Ventral hernias. Very small right pleural fluid. Additional details as above. Laboratory Results WBC 16.7 10^3/uL (4.0-10.0) H 11/12/22 18:46 RBC 3.93 10^6/uL (4.1-5.3) L 11/12/22 18:46 Hgb 12.2 g/dL (11.5-15.3) 11/12/22 18:46 Hct 40.1 % (37.0-47.0) 11/12/22 18:46 MCV 102.0 fl (81-99) H 11/12/22 18:46 MCH 31.0 pg (28.0-34.0) 11/12/22 18:46 MCHC 30.4 g/dL (30.0-36.0) 11/12/22 18:46 RDW 15.4 % (12.1-15.1) H 11/12/22 18:46 Plt Count 275 10^3/cmm (130-400) 11/12/22 18:46 MPV 8.9 fL (7.4-10.4) 11/12/22 18:46 Neut % (Auto) 88.6 % 11/12/22 18:46 Lymph % (Auto) 8.1 % 11/12/22 18:46 [place] % (Auto) 2.0 % 11/12/22 18:46 Eos % (Auto) 0.1 % 11/12/22 18:46 Baso % (Auto) 0.3 % 11/12/22 18:46 Neut # (Auto) 14.80 10^3/uL (1.8-7.7) H 11/12/22 18:46 Lymph # (Auto) 1.4 10^3/uL (0.8-4.8) 11/12/22 18:46 [place] # (Auto) 0.3 10^3/uL (0.2-0.9) 11/12/22 18:46 Eos # (Auto) 0.0 10^3/uL (0.0-0.8) 11/12/22 18:46 Baso # (Auto) 0.1 10^3/uL (0.0-0.1) 11/12/22 18:46 Nucleated RBC % (auto) 0 % 11/12/22 18:46 Nucleated RBCs # 0.0 /100WBC 11/12/22 18:46 Sodium 142 mmol/L (136-145) 11/12/22 18:46 Potassium 4.9 mmol/L (3.5-5.1) 11/12/22 18:46 Chloride 108 mmol/L (98-107) H 11/12/22 18:46 Carbon Dioxide 21 mmol/L (22-29) L 11/12/22 18:46 Anion Gap 17.9 (5-19) 11/12/22 18:46 BUN 34 mg/dL (8-23) H 11/12/22 18:46 Creatinine 1.5 mg/dL (0.5-0.9) H 11/12/22 18:46 GFR Calculation Not Reportable 11/12/22 18:46 Glucose 162 mg/dL (65-115) H 11/12/22 18:46 Calculated Osmolality 305 mOsm/kg (285-295) H 11/12/22 18:46 Calcium 8.5 mg/dL (8.5-10.5) 11/12/22 18:46 Total Bilirubin 0.2 mg/dL (0.15-1.2) 11/12/22 18:46 AST 13 U/L (0-32) 11/12/22 18:46 ALT 18 U/L (0-33) 11/12/22 18:46 Alkaline Phosphatase 64 U/L (35-105) 11/12/22 18:46 NT-Pro-B Natriuret Pep 2072 pg/mL (0-450) H 11/12/22 18:46 Total Protein 6.7 g/dL (6.6-8.7) 11/12/22 18:46 Albumin 3.8 g/dL (3.5-5.2) 11/12/22 18:46 Globulin 2.9 g/dL (1.3-4.6) 11/12/22 18:46 Urine Color Colorless (Yellow) 11/12/22 18:37 Urine Appearance Clear (CLEAR) 11/12/22 18:37 Urine pH 6 (5-7) 11/12/22 18:37 Ur Specific [place] 1.005 (1.005-1.030) 11/12/22 18:37 Urine Protein Neg (Negative) 11/12/22 18:37 Urine Glucose (UA) Norm (Normal) 11/12/22 18:37 Urine Ketones Negative (Negative) 11/12/22 18:37 Urine Blood Neg (Negative) 11/12/22 18:37 Urine Nitrate Negative (Negative) 11/12/22 18:37 Urine Bilirubin Neg (Negative) 11/12/22 18:37 Urine Urobilinogen Norm mg/dL (Negative) 11/12/22 18:37 Ur Leukocyte Esterase Negative (Negative) 11/12/22 18:37 EKG Data EKG 1: I personally reviewed and interpreted this EKG as follows: EKG Data: 11/12/22 EKG interpretation time: 19:06 Interpretation: nsr hr [address] or t wave abnormalities qrs 74 qtc 447 Discharge Plan Discharge Patient Disposition: Home Clinical Impression: Leg edema, Urinary incontinence Condition: Stable Prescriptions: New Lasix 20 mg tablet 20 mg PO DAILY Qty: 30 0RF No Action azithromycin 250 mg tablet See Rx Instructions PO .COMPLEX Qty: 6 0RF Rx Instructions: For 250 mg dose pack: take 500 mg today (day 1), then 250 mg for 4 days (days 2-5) PO benzonatate 100 mg capsule 100 mg PO TID PRN (Reason: cough) Qty: 45 0RF pantoprazole 40 mg tablet,delayed release (DR/EC) 40 mg PO DAILY Qty: 90 1RF metoclopramide HCl [Reglan] 5 mg tablet 5 mg PO TID Qty: 90 1RF Rx Instructions: take 30min prior to meal up to tid. atorvastatin 10 mg tablet See Rx Instructions .ROUTE .COMPLEX Qty: 90 3RF Dose Instruction: TAKE 1 TABLET BY MOUTH ONCE DAILY AT NIGHT Rx Instructions: TAKE 1 TABLET BY MOUTH ONCE DAILY AT NIGHT metoprolol tartrate 25 mg tablet See Rx Instructions .ROUTE .COMPLEX Qty: 180 3RF Dose Instruction: Take 1 tablet by mouth twice daily Rx Instructions: Take 1 tablet by mouth twice daily alprazolam 0.25 mg tablet 0.25 mg PO BID PRN (Reason: Anxiety) Qty: 60 5RF metformin 500 mg tablet See Rx Instructions .ROUTE .COMPLEX Qty: 90 3RF Hold Instructions: Adverse Reaction Dose Instruction: Take 1 tablet by mouth twice daily Rx Instructions: Take 1 tablet by mouth once daily prednisone 10 mg tablet 10 mg PO DAILY Qty: 30 1RF isosorbide mononitrate 30 mg Tablet Extended Release 24 Hr 30 mg PO DAILY 30 Days Qty: 30 3RF lisinopril 10 mg Tablet 10 mg PO DAILY 30 Days Qty: 30 3RF nitroglycerin 0.4 mg tablet, sublingual 0.4 mg sublingual Q5M PRN (Reason: chest pain) Qty: 30 1RF Rx Instructions: do not exceed 3 doses per episode apixaban 5 mg tablet 5 mg PO BID 30 Days Qty: 60 3RF Rx Instructions: First 7 days take 2 tabs po BID. After 7 Days take 1 tab PO BID Discharge Orders: Discharge ED (Routine); Ordered 11/12/22 Ordered By: Marija Ferrera Referrals: Alirio Dubon, [Primary Care Provider] - 1-3 days Discharge Diet: Advance as tolerated Discharge Activity: Resume usual activity Patient Instructions: Urinary Incontinence (ED), Leg Edema (ED) Coding Level of Care Code ED Wind Farm Operations Manager for Rocio Salmeron
[2022-11-12 19:02] LABS: Basophils # 0.1 10^3/uL (0.0-0.1); Basophils % 0.3 %; Eosinophils % 0.1 %; Hematocrit 40.1 % (37.0-47.0); Hemoglobin 12.2 g/dL (11.5-15.3); Lymphocytes # 1.4 10^3/uL (0.8-4.8); Lymphocytes % 8.1 %; Mean Corpuscular HGB Conc 30.4 g/dL (30.0-36.0); Mean Platelet Volume 8.9 fL (7.4-10.4); Monocytes # 0.3 10^3/uL (0.2-0.9); Neutrophils % 88.6 %; Nucleated Red Blood Cells % 0 %; Platelet Count 275 10^3/cmm (130-400); Red Blood Count 3.93 10^6/uL (4.1-5.3); Red Cell Distribution Width 15.4 % (12.1-15.1); White Blood Count 16.7 10^3/uL (4.0-10.0)
[2022-11-12 19:06] LABS: Bilirubin Urine Neg (Negative); Blood Urine Neg (Negative); Glucose Urine UA Norm (Normal); Ketones Urine Negative (Negative); Leukocyte Esterase Urine Negative (Negative); Nitrate Urine Negative (Negative); Protein Urine Neg (Negative); Specific Gravity, Urine 1.005 (1.005-1.030); Urine Appearance Clear (CLEAR); Urine Color Colorless (Yellow); Urobilinogen Urine Norm (Negative); pH Urine 6 (5-7)
--- NOTE | 2022-11-12 19:06 | ECG_ITS ---
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 Measurements Intervals [place] Rate: 62 P: 23 NC: 174 QRS: 0 QRSD: 74 T: 23 QT: 443 QTc: 450 Interpretive Statements SINUS RHYTHM SEPTAL MYOCARDIAL INFARCTION , PROBABLY OLD [40+ ms Q WAVE IN V1/V2] INFERIOR MYOCARDIAL INFARCTION , OF INDETERMINATE AGE [40+ ms Q WAVE AND/OR ST/T ABNORMALITY IN II/aVF] Compared to ECG 11/24/2020 13:34:42 Myocardial infarct finding now present Electronically Signed On 11-12-2022 22:05:03 CDT by Jose Galeas M.D. [email or web address] [email or web address] av[id number]
--- NOTE | 2022-11-12 19:08 | CTR_ITS ---
PROCEDURE INFORMATION: Exam: CT Abdomen And Pelvis With Contrast Exam date and time: 11/12/2022 7:33 PM Age: 87 years old Clinical indication: Other: Bladder incontinence; Abdominal pain; Generalized; Prior surgery; Surgery date: 6+ months; Surgery type: Colostomy for diverticulitis; Additional info: Abd/back pain TECHNIQUE: Imaging protocol: Computed tomography of the abdomen and pelvis with contrast. Radiation optimization: All CT scans at this facility use at least one of these dose optimization techniques: automated exposure control; mA and/or kV adjustment per patient size (includes targeted exams where dose is matched to clinical indication); or iterative reconstruction. Contrast material: OMNI 350; Contrast volume: 60 ml; Contrast route: INTRAVENOUS (IV); REPORTING DATA: Count of CT and Cardiac NM exams in prior 12 months: This patient has received 0 known CTs and 0 known cardiac nuclear medicine studies in the 12 months prior to the current study. COMPARISON: CT abdomen pelvis wo con [id number] 11/23/2020 1:28 PM RADIATION DOSE METRICS: Total DLP (mGy-cm): 1633.76 FINDINGS: Pleural spaces: Very small right pleural fluid. Heart: Mitral annular calcifications. Diaphragm: Small hiatal hernia. Liver: Normal. No mass. Gallbladder and bile ducts: Cholecystectomy. Pancreas: Pancreas is atrophic. No evident ductal dilation. Spleen: Spleen shows calcified granulomatous change. Normal size. Adrenal glands: Normal. No mass. Kidneys and ureters: Left renal cyst is unchanged and likely benign. Stomach and bowel: Colonic , duodenal, and distal ileal diverticula noted. No evident pericolic inflammatory change. No findings of abnormal bowel distention. Appendix: No evidence of appendicitis. Intraperitoneal space: Unremarkable. No free air. No significant fluid collection. Vasculature: Vascular calcifications are noted. No abdominal aortic aneurysm. 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 Lymph nodes: Unremarkable. No enlarged lymph nodes. Urinary bladder: Unremarkable as visualized. Reproductive: Unremarkable as visualized. Bones/joints: Mild progression of lumbar degenerative changes. No acute bony findings. Soft tissues: Three ventral hernias are noted 2 of which contain nonobstructed small bowel. CT/CT abdomen pelvis w con* [id number] IMPRESSION: No acute intra-abdominal findings. Ventral hernias. Very small right pleural fluid. Additional details as above.
[2022-11-12 19:18] LABS: Alanine Aminotransferase 18 U/L (0-33); Albumin Level 3.8 g/dL (3.5-5.2); Alkaline Phosphatase 64 U/L (35-105); Anion Gap 17.9 (5-19); Aspartate Amino Transferase 13 U/L (0-32); Blood Urea Nitrogen 34 mg/dL (8-23); Calcium 8.5 mg/dL (8.5-10.5); Carbon Dioxide 21 mmol/L (22-29); Chloride 108 mmol/L (98-107); Globulin 2.9 g/dL (1.3-4.6); Glucose 162 mg/dL (65-115); NT Pro B Type Natriuretic Pept 2072 pg/mL (0-450); Osmolality Calculated 305 mOsm/kg (285-295); Potassium 4.9 mmol/L (3.5-5.1); Sodium 142 mmol/L (136-145); Total Bilirubin 0.2 mg/dL (0.15-1.2); Total Protein 6.7 g/dL (6.6-8.7)
[2022-11-12 19:23] VITALS: PULSE 57; RESP 18; O2SAT 95
[2022-11-12] MEDS: FUROsemide 10 mg/mL SDV 4mL 40 MG IVP (19:25)
[2022-11-12] MEDS: iohexol 350 mg/mL 500 mL Btl (per mL) IV (19:38)
[2022-11-12 20:57] VITALS: BP 182/90; PULSE 63; RESP 18; O2SAT 92
== END 2022-11-12 20:58 | disposition home or self-care (01) ==
PROVIDERS: Physician Assistant; Emergency Provider Emergency Medicine; PCP Family Medicine
DX: R60.0 Localized edema (principal); R32 Unspecified urinary incontinence; Z79.84 Long term (current) use of oral hypoglycemic drugs; Z87.891 Personal history of nicotine dependence; E11.9 Type 2 diabetes mellitus without complications; I10 Essential (primary) hypertension; I25.2 Old myocardial infarction; Z86.73 Personal history of transient ischemic attack (TIA), and cerebral infarction without residual deficits
CPT/HCPCS: 71045; 74177; 80053; 81003; 83880; 85025; 93005; 96374; 99285; J1940; Q9967

== ENCOUNTER → 2022-11-19 11:30 | Outpatient (BNVA) | payer MEDICARE, SELFPAY | PROVIDERS: PCP Family Medicine; Visit Provider Family Medicine | DX: I50.9 Heart failure, unspecified (principal); R32 Unspecified urinary incontinence; E78.1 Pure hyperglyceridemia | CPT/HCPCS: 80048; 83880 ==

== ENCOUNTER → 2022-12-13 13:33 | Outpatient (BNVA) | payer MEDICARE, SELFPAY | PROVIDERS: PCP Family Medicine; Visit Provider Family Medicine | DX: I50.9 Heart failure, unspecified (principal); R53.1 Weakness | CPT/HCPCS: 80053; 83880; 85025 ==

== ENCOUNTER → 2023-02-24 09:34 | Outpatient (BNVA) | payer MEDICARE, SELFPAY | PROVIDERS: PCP Family Medicine; Visit Provider Family Medicine | DX: R10.9 Unspecified abdominal pain (principal); I50.9 Heart failure, unspecified; I10 Essential (primary) hypertension; M19.90 Unspecified osteoarthritis, unspecified site; E11.9 Type 2 diabetes mellitus without complications | CPT/HCPCS: 74018; 80053; 83036 ==

== ENCOUNTER 2023-04-04 11:43 | Observation (INO) | payer MEDICARE, SELFPAY ==
[2023-04-04] VITALS (12 sets, daily range): BP systolic 120–185; BP diastolic 52–90; PULSE 52–61; RESP 14–19; TEMP 36.4; O2SAT 96–100; BMI 28.3
--- NOTE | 2023-04-04 11:44 | ECG_ITS ---
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 Measurements Intervals [place] Rate: 51 P: 17 [place]: 169 QRS: -4 QRSD: 81 T: 40 QT: 462 QTc: 428 Interpretive Statements SINUS BRADYCARDIA INFERIOR MYOCARDIAL INFARCTION , OF INDETERMINATE AGE [40+ ms Q WAVE AND/OR ST/T ABNORMALITY IN II/aVF] Compared to ECG 11/12/2022 19:06:16 Sinus rhythm no longer present Myocardial infarct finding still present Electronically Signed On 04-04-2023 15:14:48 CDT by Jose Galeas M.D. [id number]
--- NOTE | 2023-04-04 12:07 | W.ED.CHESTPA ---
HPI - Chest Pain General: Chief Complaint: Chest Pain Stated Complaint: chest pain, n/v Time Seen by Provider: 04/04/23 11:44 Source: patient Mode of arrival: ambulatory History of Present Illness: 87-year-old female presents to the emergency room complaining epigastric pain radiating to her chest with nausea and vomiting little bit of a headache as well as some palpitations. In 2020 she has a history of heart disease she is not having any symptoms at this time she initially told the nurse regarding a couple of days when I talked her she has had been on a couple weeks she denies any fever sweats chills or productive cough MD complaint: chest pain Pertinent past history: coronary artery disease Timing of current episode: episodic Prior episodes: Yes Onset: during rest Pain location: epigastric Severity: mild Quality: aching Relieving factors: nothing Exacerbating factors: nothing Associated symptoms: Deny abdominal pain, dyspnea or fever(s) Review of Systems Const: Denies: fever(s) or chills Card: Denies: chest pain Resp: Denies: dyspnea GI: Denies: abdominal pain : Denies: dysuria, urinary frequency or urinary urgency Musc: Denies: neck pain or back pain Skin/Breast: Denies: rash PFSH ED PFSH: Medical History Abnormal stress test Acid reflux Carotid stenosis Cataract Diabetes mellitus Diverticulitis GI bleed Hypertension Migraine NSTEMI (non-ST elevated myocardial infarction) T3 vertebral fracture TIA (transient ischemic attack) Ventral incisional hernia without obstruction or gangrene Vertigo Surgical History H/O colectomy History of appendectomy History of cholecystectomy History of right-sided carotid endarterectomy Family History Mother Hypertension Brother Aneurysm Sister Aneurysm Social History Smoking and tobacco/nicotine status: former use of tobacco/nicotine Alcohol intake: never Substance/Drug Use: never Physical Exam Const: GENERAL APPEARANCE: cooperative and comfortable ORIENTATION/CONSCIOUSNESS: Yes awake, Yes oriented to person, Yes oriented to place and Yes oriented to time HENMT: COMMON NORMALS: normocephalic, atraumatic and hearing grossly normal bilaterally HEAD & SCALP: normocephalic and atraumatic Resp: COMMON NORMALS: normal respiratory effort, No retractions, No use of accessory muscles and clear to auscultation bilaterally AUSCULTATION: clear to auscultation bilaterally Cardio: COMMON NORMALS: regular rate, regular rhythm and No murmurs present (Cardio) RATE: regular rate RHYTHM: regular rhythm GI: COMMON NORMALS: Soft to palpation and No hepatosplenomegaly present AUSCULTATION: Yes normoactive bowel sounds PALPATION: Yes Soft to palpation, No Tenderness to palpation present (GI), No Guarding due to palpation present (GI) and Yes No hepatosplenomegaly present OTHER: Ventral hernia large defect no significant tenderness on exam. No guarding no rebound nonacute abdomen Extremity: COMMON NORMALS: normal to inspection, capillary refill normal, no clubbing, cyanosis or edema, no calf tenderness and no pedal edema Neuro: SENSORIUM/ORIENTATION: Yes oriented to person, Yes oriented to place and Yes oriented to time Skin: COMMON NORMALS: no rashes or lesions noted GENERAL SKIN EXAM: no rashes or lesions noted Course Vital Signs: Vital signs: Vital Signs Temperature 97.7 F 04/05/23 03:48 Pulse Rate 63 04/05/23 03:48 Respiratory Rate 16 04/05/23 03:48 Blood Pressure 153/68 04/05/23 03:48 Pulse Oximetry 99 04/05/23 03:48 Oxygen Delivery Me thod Room Air 04/04/23 21:51 Fraction of Inspir ed Oxygen 21 04/04/23 20:59 MDM - Chest Pain Medical Decision Making Metabolic acidosis. Likely secondary to fluid losses. Patient and reported abdominal and chest pain earlier but none at this time. Serial troponins and EKGs thus far negative. Repeat abdominal exam is unchanged from initial. Patient continues to states she has no significant chest or abdominal pain at this time although she did earlier. Despite fluids anion gap has persisted will admit.. Influenza negative COVID-negative Medical Records I reviewed the patient's medical records. Lab Data I reviewed the patient's lab results. 04/05/23 04:57 04/05/23 04:57 Radiology Impressions Chest X-Ray 04/04/23 13:02 IMPRESSION: No acute findings. Abdomen/Pelvis CT 04/04/23 18:08 IMPRESSION: 1. Large left anterior abdominal wall hernia which contains small bowel with no evidence of strangulation or obstruction. The other ventral hernias remain unchanged. 2. Previously noted fluid collection in the soft tissues above the hernial defect has resolved with residual inflammatory change noted in this region. Laboratory Results WBC 14.72 10^3/uL (3.29-11.43) H 04/04/23 12:02 RBC 4.27 10^6/uL (3.85-5.65) 04/04/23 12:02 Hgb 13.60 g/dL (11.27-16.99) 04/04/23 12:02 Hct 43.1 % (36-47) 04/04/23 12:02 MCV 100.9 fl (85-98) H 04/04/23 12:02 MCH 31.9 pg (27-33) 04/04/23 12:02 MCHC 31.6 g/dL (30-55) 04/04/23 12:02 RDW 15.8 % (12.1-15.1) H 04/04/23 12:02 Plt Count 379 10^3/cmm (157-399) 04/04/23 12:02 MPV 9.5 fL (7.4-10.4) 04/04/23 12:02 Neut % (Auto) 60.3 % 04/04/23 12:02 Lymph % (Auto) 27.3 % 04/04/23 12:02 [place] % (Auto) 9.0 % 04/04/23 12:02 Eos % (Auto) 2.4 % 04/04/23 12:02 Baso % (Auto) 0.3 % 04/04/23 12:02 Neut # (Auto) 8.87 10^3/uL (1.8-7.7) H 04/04/23 12:02 Lymph # (Auto) 4.0 10^3/uL (0.8-4.8) 04/04/23 12:02 [place] # (Auto) 1.3 10^3/uL (0.2-0.9) H 04/04/23 12:02 Eos # (Auto) 0.4 10^3/uL (0.0-0.8) 04/04/23 12:02 Baso # (Auto) 0.1 10^3/uL (0.0-0.1) 04/04/23 12:02 Nucleated RBC % (auto) 0 % 04/04/23 12:02 Nucleated RBCs # 0.0 /100WBC 04/04/23 12:02 Sodium 135 mmol/L (136-145) L 04/04/23 14:00 Potassium 3.9 mmol/L (3.5-5.1) 04/04/23 14:00 Chloride 102 mmol/L (98-107) 04/04/23 14:00 Carbon Dioxide 13 mmol/L (22-29) L 04/04/23 14:00 Anion Gap 23.9 (5-19) H 04/04/23 14:00 BUN 34 mg/dL (8-23) H 04/04/23 14:00 Creatinine 1.7 mg/dL (0.5-0.9) H 04/04/23 14:00 GFR Calculation Not Reportable 04/04/23 14:00 Glucose 125 mg/dL (65-115) H 04/04/23 14:00 Estimat Average Glucose 128 04/04/23 12:02 Hemoglobin A1c 6.1 % (4.0-6.0) H 04/04/23 12:02 Calculated Osmolality 289 mOsm/kg (285-295) 04/04/23 14:00 Calcium 9.4 mg/dL (8.5-10.5) 04/04/23 14:00 Total Bilirubin 0.5 mg/dL (0.15-1.2) 04/04/23 12:02 AST 13 U/L (0-32) 04/04/23 12:02 ALT 7 U/L (0-33) 04/04/23 12:02 Alkaline Phosphatase 106 U/L (35-105) H 04/04/23 12:02 Troponin T Baseline 36 ng/L (0-10) H 04/04/23 12:02 Troponin T 120 Minute 37.94 ng/L (0-10) H 04/04/23 14:00 Delta Troponin T 1.94 ABS# (0-10) 04/04/23 14:00 Total Protein 6.9 g/dL (6.6-8.7) 04/04/23 12:02 Albumin 4.1 g/dL (3.5-5.2) 04/04/23 12:02 Globulin 2.8 g/dL (1.3-4.6) 04/04/23 12:02 All radiology interpretation(s) finalized by discharge Discharge Plan Discharge Patient Disposition: Admitted As Inpatient Admit Provider: Edu Petersen Clinical Impression: Metabolic acidosis, Gastroparesis Condition: Stable Coding Level of Care Code ED Ratings Analyst for Rocio Salmeron
[2023-04-04 12:15] LABS: Basophils # 0.1 10^3/uL (0.0-0.1); Basophils % 0.3 %; Eosinophils # 0.4 10^3/uL (0.0-0.8); Eosinophils % 2.4 %; Hematocrit 43.1 % (36-47); Lymphocytes % 27.3 %; Mean Corpuscular HGB Conc 31.6 g/dL (30-55); Mean Corpuscular Hemoglobin 31.9 pg (27-33); Mean Corpuscular Volume 100.9 fl (85-98); Mean Platelet Volume 9.5 fL (7.4-10.4); Monocytes # 1.3 10^3/uL (0.2-0.9); Neutrophils # 8.87 10^3/uL (1.8-7.7); Neutrophils % 60.3 %; Nucleated Red Blood Cells % 0 %; Platelet Count 379 10^3/cmm (157-399); Red Blood Count 4.27 10^6/uL (3.85-5.65); Red Cell Distribution Width 15.8 % (12.1-15.1); White Blood Count 14.72 10^3/uL (3.29-11.43)
[2023-04-04] MEDS: aspirin 81 mg Chew Tablet 324 MG PO (12:25)
[2023-04-04 12:41] LABS: Troponin(5th) Baseline 36 ng/L (0-10)
[2023-04-04 12:51] LABS: Alanine Aminotransferase 7 U/L (0-33); Albumin Level 4.1 g/dL (3.5-5.2); Alkaline Phosphatase 106 U/L (35-105); Anion Gap 25.3 (5-19); Aspartate Amino Transferase 13 U/L (0-32); Blood Urea Nitrogen 29 mg/dL (8-23); Calcium 10.1 mg/dL (8.5-10.5); Carbon Dioxide 14 mmol/L (22-29); Chloride 102 mmol/L (98-107); Globulin 2.8 g/dL (1.3-4.6); Glucose 129 mg/dL (65-115); Osmolality Calculated 292 mOsm/kg (285-295); Potassium 4.3 mmol/L (3.5-5.1); Sodium 137 mmol/L (136-145); Total Bilirubin 0.5 mg/dL (0.15-1.2); Total Protein 6.9 g/dL (6.6-8.7)
--- NOTE | 2023-04-04 13:02 | XRR_ITS ---
PROCEDURE INFORMATION: Exam: XR Chest Exam date and time: 04/04/2023 1:08 PM Age: 87 years old Clinical indication: Pain; Chest pressure; Additional info: Chest pain TECHNIQUE: Imaging protocol: Radiologic exam of the chest. Views: 1 view. COMPARISON: 1. CR XR chest 1V portable [id number] 11/12/2022 7:04 PM 2. CR XR chest 2V* [id number] 05/06/2021 1:29 PM 3. CR XR chest 1V portable [id number] 11/22/2020 7:09 PM FINDINGS: Tubes, catheters and devices: Right neck surgical clips. Lungs: Mild scarring versus subsegmental atelectasis in the left lower lung. No consolidation. Pleural spaces: Unremarkable. No pleural effusion. No pneumothorax. Heart/Mediastinum: Unremarkable. No cardiomegaly. Vasculature: Aortic atherosclerotic calcification. Bones/joints: Degenerative changes along the spine and shoulders. XR/XR chest 1V portable [id number] IMPRESSION: No acute findings.
[2023-04-04] MEDS: sodium chloride 0.9% 1,000 ML 999 ML IV (13:51)
[2023-04-04 14:25] LABS: Troponin 5 2HR 37.94 ng/L (0-10)
[2023-04-04 14:27] LABS: Troponin 5 2HR Delta 1.94 ABS# (0-10)
[2023-04-04 14:46] LABS: Anion Gap 23.9 (5-19); Blood Urea Nitrogen 34 mg/dL (8-23); Calcium 9.4 mg/dL (8.5-10.5); Carbon Dioxide 13 mmol/L (22-29); Chloride 102 mmol/L (98-107); Glucose 125 mg/dL (65-115); Osmolality Calculated 289 mOsm/kg (285-295); Potassium 3.9 mmol/L (3.5-5.1); Sodium 135 mmol/L (136-145)
--- NOTE | 2023-04-04 18:08 | CTR_ITS ---
PROCEDURE INFORMATION: Exam: CT Abdomen And Pelvis Without Contrast Exam date and time: 04/04/2023 6:48 PM Age: 87 years old Clinical indication: Nausea and vomiting; Additional info: N/v TECHNIQUE: Imaging protocol: Computed tomography of the abdomen and pelvis without contrast. Radiation optimization: All CT scans at this facility use at least one of these dose optimization techniques: automated exposure control; mA and/or kV adjustment per patient size (includes targeted exams where dose is matched to clinical indication); or iterative reconstruction. REPORTING DATA: Count of CT and Cardiac NM exams in prior 12 months: This patient has received [address] and 0 known cardiac nuclear medicine studies in the 12 months prior to the current study. COMPARISON: CT abdomen pelvis w con* [id number] 11/12/2022 7:33 PM RADIATION DOSE METRICS: Total DLP (mGy-cm): 550 FINDINGS: Lungs: The visualized lung bases are unremarkable. Heart: There is mitral valve calcification noted. Liver: . No mass. Gallbladder and bile ducts: Patient is status post cholecystectomy. Pancreas: Atrophic. No ductal dilation. Spleen: There are few calcified granulomas noted. Adrenal glands: . No mass. Kidneys and ureters: No hydronephrosis. The left renal cortical cyst is again noted. Stomach and bowel: The large left ventral hernia is again noted, it contains small bowel with no evidence of strangulation or obstruction. There is a fat containing umbilical hernia. Third ventral hernia contains small bowel which is not strangulated or obstructed. There are inflammatory changes in the soft tissues just above the level of the hernia, previously there was a fluid collection noted at this level. The fluid collection is noted to have resolved. There are no abnormally dilated bowel loops. Appendix: No evidence of appendicitis. Intraperitoneal space: No free air. No significant fluid collection. Vasculature: There is severe atherosclerotic disease with circumferential calcification of the distal abdominal aorta. There is no aneurysm. Origins of the common iliac arteries are patent with mild disease. Lymph nodes: No enlarged lymph nodes. Urinary bladder: Unremarkable as visualized. Reproductive: Unremarkable as visualized. Bones/joints: There is severe degenerative disease of the spine. Soft tissues: Unremarkable. CT/CT abdomen pelvis wo con [id number] IMPRESSION: 1. Large left anterior abdominal wall hernia which contains small bowel with no evidence of strangulation or obstruction. The other ventral hernias remain unchanged. 2. Previously noted fluid collection in the soft tissues above the hernial defect has resolved with residual inflammatory change noted in this region.
--- NOTE | 2023-04-04 18:14 | USCV_ITS ---
Rebeka Anderson Age: 87 Gender: F : 1935 Exam Date: 04/04/2023 20:54 Ordering Phys: Edu Petersen MD Technologist: TREMAYNE Exam Location: [facility] [place] Indication: chest pain. Patient states she had SC 2020. BP: 133 / 53 HR: 50 Rhythm: Sinus Technical Quality: Adequate MEASUREMENTS (Male / Female) Normal Values 2D ECHO LV Diastolic Diameter PLAX 2.6 cm 4.2 - 5.9 / 3.9 - 5.3 cm LV Systolic Diameter PLAX 1.8 cm IVS Diastolic Thickness 1.9 cm 0.6 - 1.0 / 0.6 - 0.9 cm IVS Systolic Thickness 1.8 cm LVPW Diastolic Thickness 1.2 cm 0.6 - 1.0 / 0.6 - 0.9 cm LVPW Systolic Thickness 1.3 cm LVOT Diameter 1.5 cm LV Ejection Fraction 2D Teich 62.4 % LV Ejection Fraction MOD 2C 61.2 % LV Ejection Fraction 2C AL 61.0 % LA Diameter 3.2 cm LA Width 4.1 cm LA Height 5.0 cm RA Width 2.6 cm RA Height 3.4 cm Aorta at Sinotubular Diameter 2.4 cm IVC Diameter 0.8 cm M-MODE Aortic Annulus Diameter 2.6 cm LA Ao Ratio MM 1.3 MV E Point Septal Separation 0.3 cm DOPPLER AV Peak Velocity 178.0 cm/s LVOT Peak Velocity 113.0 cm/s AV Area Cont Eq vti 1.3 cm squared AV Area Cont Eq pk 1.1 cm squared MV Peak Velocity 149.0 cm/s MV Area PHT 2.4 cm squared Mitral E to A Ratio 0.6 MV E' Velocity 50.5 cm/s Mitral E to MV E' Ratio 20.4 Mitral E to LV E' Lateral Ratio 18.4 Mitral E to LV E' Septal Ratio 23.3 TR Peak Velocity 241.7 cm/s TR Peak Gradient 23.4 mmHg TV Peak E Velocity 39.0 cm/s Right Atrial Pressure 5.0 mmHg Pulmonary Artery Systolic Pressu 28.4 mmHg PV Peak Velocity 83.0 cm/s RV Acceleration Time 0.1 s RV Ejection Time 0.4 s RV AcT/ET 0.3 FINDINGS Left Ventricle Left ventricle is normal in size. LV systolic function is normal with EF of 60 to 65%. No regional wall motion abnormalities are seen. Grade 1 diastolic dysfunction. Left ventricular hypertrophy seen Right Ventricle Normal in size and Right Atrium Normal in size Left Atrium Dilated Mitral Valve Moderate mitral annular calcification seen. Mild mitral regurgitation Aortic Valve Aortic valve is thickened. Mild aortic regurgitation. Mild aortic stenosis with aortic valve area 1.27 cm squared and mean gradient across aortic valve of 6.3 mmHg. Doppler features of LVOT obstruction (mild) seen Tricuspid Valve Mild tricuspid regurgitation. Pulmonary artery systolic pressure is normal. Pulmonic Valve Not well-visualized Pericardium Normal Aorta Normal in size IVC Appears to be normal CONCLUSIONS LV systolic function is normal with EF of 60 to 65%. Grade 1 diastolic dysfunction. Mild mitral regurgitation Mild aortic regurgitation. Mild aortic stenosis. Mild tricuspid regurgitation. Compared to prior echocardiogram from 2020, no significant changes are seen Jose Galeas MD (Electronically Signed) Final Date: 05 April 2023 09:35 S
--- NOTE | 2023-04-04 18:16 | P.HP_ITS ---
Providers/Chief Complaint Admitting Physician: Edu Petersen MD Primary Care Provider: Alirio Dubon DO Chief Complaint: chest pain, n/v History of Present Illness Rebeka Anderson is a 87 year old female with a past medical history of DVT, on Eliquis therapy, history of ventral hernia containing nonobstructed bowel, history of cholecystectomy, colectomy, noninsulin-dependent type 2 diabetes mellitus who presents to [facility] for complaints of epigastric discomfort, chest pain, with nausea, vomiting. Patient tells me for the last few days, she has had epigastric discomfort, with frequent nausea vomiting bilious vomiting, denies any lightheadedness, no dizziness, is passing stool from below, is passing gas. She tells me that what prompted her come to the emergency room, as she was having chest discomfort, epigastric discomfort, sharp-like pain, stabbing-like pain in her chest, she tells me that she has had a colostomy then reversal, for diverticulitis, since that she has had abdominal troubles, she has had a cholecystectomy, no fevers, no chills, but does report fatigue, malaise, no hematuria, no dysuria Review of Systems Const: Reports: fatigue and malaise; Denies: fever(s) or chills Card: Reports: chest pain Resp: Denies: dyspnea GI: Reports: abdominal pain, nausea, vomiting and heartburn : Denies: flank pain or difficulty voiding Musc: Denies: neck pain Neuro: Denies: headache(s), numbness in extremities or weakness in extremities Endo: Denies: polyuria Medications/Allergies Home Medications Medication Instructions Recorded Confirmed Last Taken Type nitroglycerin 0.4 mg sublingual 0.4 mg sublingual Q5M PRN chest 11/25/20 04/04/23 Unknown Rx tablet pain #30 tabs pantoprazole 40 mg tablet,delayed 40 mg PO DAILY #90 tabs 10/11/22 04/04/23 04/04/23 Rx release alprazolam 0.25 mg tablet 0.25 mg PO BID PRN Anxiety #60 tabs 01/29/23 04/04/23 04/04/23 Rx atorvastatin 10 mg tablet 10 mg PO QPM 04/04/23 04/04/23 04/03/23 History metformin 500 mg tablet 500 mg PO BID 04/04/23 04/04/23 04/04/23 History metoprolol tartrate 25 mg tablet 25 mg PO BID 04/04/23 04/04/23 04/04/23 History Allergies Allergy/AdvReac Type Severity Reaction Status Date / Time No Known Allergies Allergy Verified 04/04/23 11:48 PFSH Acute PFSH: Medical History Abnormal stress test Acid reflux Carotid stenosis Cataract Diabetes mellitus Diverticulitis GI bleed Hypertension Migraine NSTEMI (non-ST elevated myocardial infarction) T3 vertebral fracture TIA (transient ischemic attack) Ventral incisional hernia without obstruction or gangrene Vertigo Surgical History H/O colectomy History of appendectomy History of cholecystectomy History of right-sided carotid endarterectomy Family History Mother Hypertension Brother Aneurysm Sister Aneurysm Social History Smoking and tobacco/nicotine status: former use of tobacco/nicotine Alcohol intake: never Substance/Drug Use: never Vitals/I&O/Wt Last Vital Signs Temp 97.5 F L 04/04/23 11:49 Pulse 55 L 04/04/23 18:02 Resp 16 04/04/23 18:02 BP 133/53 04/04/23 18:02 Pulse Ox 98 04/04/23 18:02 O2 Del Method Room Air 04/04/23 16:57 04/04/23 04/04/23 04/04/23 06:59 14:59 22:59 Intake Total 1000 / 1000 Balance 1000 / 1000 Weight last 48 hrs Weight 68.039 kg Physical Exam Const: COMMON NORMALS: no acute distress and patient oriented x3 HENMT: COMMON NORMALS: normocephalic HEAD & SCALP: normocephalic Eye: COMMON NORMALS: Equal, round and reactive pupils present and EOMs intact bilaterally Neck/C-Spine: COMMON NORMALS: no JVD Lymph: LYMPHATIC: no lymphadenopathy noted Chest: COMMONS NORMALS: normal inspection of the chest Resp: COMMON NORMALS: normal respiratory effort, No retractions, No use of accessory muscles and clear to auscultation bilaterally AUSCULTATION: clear to auscultation bilaterally Cardio: COMMON NORMALS: regular rate, regular rhythm, S1 normal heart sound present and S2 normal heart sound present RATE: regular rate RHYTHM: regular rhythm HEART SOUNDS: S1 normal heart sound present and S2 normal heart sound present GI: COMMON NORMALS: Normal to inspection, nondistended, normoactive bowel sounds present, Soft to palpation and non-tender OTHER: Multiple incisional hernias, Extremity: COMMON NORMALS: no pedal edema Neuro: COMMON NORMALS: patient oriented x3, CN's II-XII intact bilaterally, moves all extremities and no focal motor deficits Psych: COMMON NORMALS: mental status grossly normal Data 04/04/23 12:02 04/04/23 14:00 A&P Assessment and plan (1) Abdominal pain: (2) Hypertension: (3) Diabetes mellitus: (4) DVT (deep venous thrombosis): (5) Chest pain: Plan Chest pain -Serial EKGs, serial troponins, telemetry monitoring -Continue aspirin, statin, beta-mayra -Cardiac echo Abdominal pain -History of VENTRAL HERNIA, with nonobstructing small bowel gas pattern -Abdomen soft, nondistended, no guarding, no rebound, no rigidity, minimal epigastric tenderness -Status post cholecystectomy -Check lipase -Keep n.p.o. -CT scan abdomen pelvis Type 2 diabetes mellitus, A1c, low-dose sliding scale Fatigue, malaise, COVID, flu testing DVT, history, Eliquis Patient is a DNR/DNI, confirmed with his multiple times Eliquis for DVT prophylaxis Attestations Medical Necessity Statement*: Patient requires hospitalization, outpatient with observation, for chest pain, abdominal pain Diagnoses Abdominal pain R10.9 Hypertension I10 Diabetes mellitus E11.9 DVT (deep venous thrombosis) I82.409 Chest pain R07.9
--- NOTE | 2023-04-04 18:18 | ECG_ITS ---
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 Measurements Intervals [place] Rate: 53 P: 28 [place]: 191 QRS: 28 QRSD: 71 T: 58 QT: 473 QTc: 446 Interpretive Statements SINUS BRADYCARDIA Compared to ECG 04/04/2023 11:52:47 Myocardial infarct finding no longer present Electronically Signed On 04-04-2023 18:19:12 CDT by Jose Galeas M.D. [id number]
--- NOTE | 2023-04-04 18:39 | USCV_ITS ---
Rebeka Anderson Age: 87 Gender: F : 1935 Exam Date: 04/04/2023 20:26 Ordering Phys: Edu Petersen MD Technologist: TREMAYNE Exam Location: [facility] [place] Indication: History of RLE DVT 2020. c/o pain RT posterior calf today. No edema. No erythema. HISTORY: History of RLE DVT 2020. c/o pain RT posterior calf today. No edema. No erythema. PROCEDURES: Venous duplex imaging was performed in bilateral lower extremities. The following venous structures were evaluated: common femoral vein, profunda vein, proximal portion of the greater saphenous vein, superficial femoral vein, and the popliteal vein. In addition, the posterior tibial veins were evaluated. FINDINGS: Normal 2-D Doppler and augmentation and compressibility throughout the lower extremity venous structures. Additional imaging through the proximal calf veins also reveals no thrombus. Limited evaluation of the greater saphenous vein is patent with no thrombus. CONCLUSIONS No DVT bilateral lower extremities. Dr. Aria Chavez DO (Electronically Signed) Final Date: 05 April 2023 07:32 S
[2023-04-04] MEDS: enoxaparin 40 mg/0.4 mL Syringe SUBCUT (19:33)
[2023-04-04] MEDS: sodium chloride 0.9% 1,000 ML 100 ML IV (19:36)
[2023-04-04] MEDS: acetaminophen 325 mg Tablet 650 MG PO (19:56)
[2023-04-04 20:12] LABS: D Dimer 0.93 ug/mLFEU (0-0.59)
[2023-04-04 20:17] LABS: Lactic Sepsis W/Reflex 1.2 mmol/L (0.5-2.2)
[2023-04-04 20:24] LABS: NT Pro B Type Natriuretic Pept 621 pg/mL (0-450); Procalcitonin 0.98 ng/mL (0-0.5); Thyroid Stimulating Hormone 1.73 uIU/mL (0.27-4.20)
[2023-04-04 20:27] LABS: Estmated Average Glucose 128; Hemoglobin A1C 6.1 % (4.0-6.0)
[2023-04-04 20:35] LABS: Chol HDL Ratio 2.86 mg/dL (0.0-4.40); Cholesterol 63 mg/dL (0-200); HDL Cholesterol 22 mg/dL (60-100); LDL Cholesterol Calculated 15 mg/dL (50-129); LDL HDL Ratio 0.68 RATIO (0.00-3.22); Lipase 243 U/L (13-60); Triglycerides 131 mg/dL (0-150)
[2023-04-04 21:33] LABS: Glucose Point of Care 75 mg/dL (70-110)
[2023-04-04 22:39] LABS: Influenza A by IFA negative (Negative); Influenza B by IFA negative (Negative)
[2023-04-04 22:57] LABS: Urine Appearance Hazy (CLEAR); Urine Color Yellow (Yellow)
[2023-04-04 22:58] LABS: Add Urine Microscopic? YES; Amorphous Sediment Urine 1+ /hpf; Bacteria Urine 2+ /hpf; Bilirubin Urine Neg (Negative); Blood Urine Neg (Negative); Glucose Urine UA Norm (Normal); Ketones Urine 1+ (Negative); Leukocyte Esterase Urine 2+ (Negative); Nitrate Urine Negative (Negative); Protein Urine Trace (Negative); Specific Gravity, Urine 1.015 (1.005-1.030); Urobilinogen Urine Neg (Negative); WBC Urine 15-25 /hpf (0-5); pH Urine 5 (5-7)
[2023-04-04 22:59] LABS: Add Urine Culture? Yes; Coarse Granular Casts Urine 0-4 /lpf
[2023-04-05] VITALS (8 sets, daily range): BP systolic 116–153; BP diastolic 46–68; PULSE 54–87; RESP 16–20; TEMP 36.2–36.5; O2SAT 97–99
[2023-04-05 00:04] LABS: Adenovirus Not Detected (NOT DETECT); Chlamydia Pneumoniae Not Detected (NOT DETECT); Coronavirus 229E,HKU1,NL63,OC4 Not Detected (NOT DETECT); Human Metapneumovirus Not Detected (NOT DETECT); Human Rhinovirus/Enterovirus Not Detected (NOT DETECT); Influenza A Not Detected (NOT DETECT); Influenza A H1 Not Detected (NOT DETECT); Influenza A H1-2009 Not Detected (NOT DETECT); Influenza A H3 Not Detected (NOT DETECT); Influenza B Not Detected (NOT DETECT); Mycoplasma Pneumoniae Not Detected (NOT DETECT); Parainfluenza Virus Type 1 Not Detected (NOT DETECT); Parainfluenza Virus Type 2 Not Detected (NOT DETECT); Parainfluenza Virus Type 3 Not Detected (NOT DETECT); Parainfluenza Virus Type 4 Not Detected (NOT DETECT); Respiratory Syncytial Virus A Not Detected (NOT DETECT); Respiratory Syncytial Virus B Not Detected (NOT DETECT); SARS-COV-2 Not Detected (NOT DETECT)
[2023-04-05] MEDS: acetaminophen 325 mg Tablet 650 MG PO (03:31)
[2023-04-05 05:33] LABS: Basophils # 0.1 10^3/uL (0.0-0.1); Basophils % 0.4 %; Eosinophils # 0.3 10^3/uL (0.0-0.8); Eosinophils % 2.4 %; Hematocrit 41.6 % (36-47); Lymphocytes # 2.9 10^3/uL (0.8-4.8); Lymphocytes % 24.9 %; Mean Corpuscular HGB Conc 29.3 g/dL (30-55); Mean Corpuscular Hemoglobin 31.5 pg (27-33); Mean Corpuscular Volume 107.5 fl (85-98); Mean Platelet Volume 9.1 fL (7.4-10.4); Monocytes # 0.8 10^3/uL (0.2-0.9); Monocytes % 7.1 %; Neutrophils # 7.57 10^3/uL (1.8-7.7); Neutrophils % 64.7 %; Nucleated Red Blood Cells % 0 %; Platelet Count 284 10^3/cmm (157-399); Red Blood Count 3.87 10^6/uL (3.85-5.65); Red Cell Distribution Width 15.6 % (12.1-15.1)
[2023-04-05 05:52] LABS: Alanine Aminotransferase < 5 U/L (0-33); Albumin Level 3.1 g/dL (3.5-5.2); Alkaline Phosphatase 89 U/L (35-105); Anion Gap 25.2 (5-19); Aspartate Amino Transferase 13 U/L (0-32); Blood Urea Nitrogen 29 mg/dL (8-23); Carbon Dioxide 12 mmol/L (22-29); Chloride 107 mmol/L (98-107); Globulin 2.6 g/dL (1.3-4.6); Glucose 67 mg/dL (65-115); Magnesium 1.5 mg/dL (1.7-2.3); Osmolality Calculated 294 mOsm/kg (285-295); Phosphorus 3.9 mg/dL (2.5-4.5); Potassium 4.2 mmol/L (3.5-5.1); Sodium 140 mmol/L (136-145); Total Bilirubin 0.4 mg/dL (0.15-1.2); Total Protein 5.7 g/dL (6.6-8.7)
[2023-04-05 07:00] LABS: Glucose Point of Care 69 mg/dL (70-110)
[2023-04-05] MEDS: dextrose 50% syringe 50 mL IVP (07:41)
--- NOTE | 2023-04-05 09:05 | PC.CHAP ---
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 visit [] Patient/Family/Request visit [] Outpatient visit [] Follow-up visit [] Physician referral [] Code/Alert [] Routine visit [] Staff referral [] Actively dying [] Patient sleeping [] Family support [] [] Out of room [] Palliative care [] [x] Receiving care in room [] Pre-surgical visit [] Trauma [] Long length of stay [] ICU visit [] Other: Relational/Emotional Strength [] Patient feels connected with others/family/visitors/staff [] Distress [] Loneliness/isolation [] Abandonment Spirituality of Patient [] Person of Elaine [] Attends Rastafarian of their Elaine [] Believes in Prayer [] Reads Bible or Holiness materials [] There are Spiritual issues to be addressed Art Class Model Interventions [] Prayer [] Active listening [] Non-anxious presence [] Spiritual/emotional support [] Crisis/trauma care [] Spiritual counseling [] Bereavement support [] Provided bereavement packet [] Provided Bible/devotional materials [] Provided toy/stuffed animal, coloring book to patient or family member [] Provided Communion [] Anointing/[place] [] Salvation [] Completed spiritual assessment [] Other: Impact on Illness or Injury [] Angry [] Fearful [] Anxious [] Often cries [] Exhaustion [] Unable to work [] Unable to attend orthodoxy [] Unable to walk/stand [] Unable to read [] Unable to drive [] Unable to eat/drink [] Unable to sleep [] Unable to be with family [] Patient intubated [] Other: Summary Time spent with patient
[2023-04-05] MEDS: pantoprazole DR 40 mg Tablet PO (10:44)
[2023-04-05] MEDS: magnesium sulfate premix 1 GM/100 ML PIGGYBACK IV (10:44)
[2023-04-05] MEDS: aspirin 81 mg EC Tablet PO (10:45)
[2023-04-05] MEDS: metoprolol tartrate 25 mg Tablet PO (10:45)
[2023-04-05] MEDS: cefTRIAXone 1,000 MG in sodium chloride 0.9% (plus) 50 ML 100 MG IV (11:27)
[2023-04-05 11:33] LABS: Troponin 5 6HR 26.14 ng/L (0-10)
[2023-04-05 12:27] LABS: Glucose Point of Care 103 mg/dL (70-110)
--- NOTE | 2023-04-05 13:36 | PM.DCS ---
Discharge Providers Date of Admission: 04/04/23 18:14 Date of Discharge: April 05, 2023 Attending Provider at Admission: Edu Petersen MD Attending Provider at Discharge: Edu Petersen MD Primary Care Provider: Alirio Dubon DO Diagnoses at Discharge Discharge Diagnosis (1) Abdominal pain: Status: Acute (2) Hypertension: Status: Acute (3) Diabetes mellitus: Status: Acute (4) DVT (deep venous thrombosis): Status: Chronic (5) Chest pain: Status: Acute Reason for Visit Reason for Visit: chest pain, n/v Hospital Course Hospital Course Rebeka Anderosn is a 87 year old female with a past medical history of DVT, off Eliquis therapy, history of ventral hernia containing nonobstructed bowel, history of cholecystectomy, colectomy, noninsulin-dependent type 2 diabetes mellitus who presents to [facility] for complaints of epigastric discomfort, chest pain, with nausea, vomiting.? Patient tells me for the last few days, she has had epigastric discomfort, with frequent nausea vomiting bilious vomiting, denies any lightheadedness, no dizziness, is passing stool from below, is passing gas.? 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 I did have a detailed discussion about her large ventral hernia, if she has any acute onset of pain, nausea, vomiting, lack of stooling, this is a life-threatening complication of strangulation or obstruction related to her abdominal wall hernia in the small bowel that is contained within it. If she should come to the emergency room immediately, she voiced concern, all questions answered. For her chest pain, atypical in nature, EKG no acute ST-T wave changes, no significant delta troponin, no recurrent chest pain during hospitalization, echocardiogram no significant wall motion abnormalities, follow-up with primary care provider as outpatient. If any recurrent chest pain complaints please go to emergency room or call 911. Can consider follow-up with primary care for consideration of stress testing as outpatient based on clinical progress. For UTI received cefdinir Patient had a history of DVT, is off Eliquis, repeat venous ultrasound negative for DVT For history of CKD, monitor as outpatient Physical Exam Const: COMMON NORMALS: no acute distress and patient oriented x3 Resp: COMMON NORMALS: normal respiratory effort, No retractions, No use of accessory muscles and clear to auscultation bilaterally AUSCULTATION: clear to auscultation bilaterally Cardio: COMMON NORMALS: regular rate, regular rhythm, S1 normal heart sound present and S2 normal heart sound present RATE: regular rate RHYTHM: regular rhythm HEART SOUNDS: S1 normal heart sound present and S2 normal heart sound present GI: COMMON NORMALS: Normal to inspection, nondistended, normoactive bowel sounds present and non-tender Extremity: COMMON NORMALS: no pedal edema Neuro: COMMON NORMALS: patient oriented x3 Psych: COMMON NORMALS: mental status grossly normal Discharge Data Studies Completed and Pending Completed Studies During Hospitalization Category Date Time Status CT abdomen pelvis wo con [id number] Stat Cat Scan 04/04/23 18:08 Completed XR chest 1V portable [id number] Stat Exams 04/04/23 13:02 [place] [id number] Routine Ultrasound 04/04/23 18:39 Completed CV. echo complete* [id number] Routine Ultrasound 04/04/23 18:14 Completed Pending at discharge Category Date Time Status Complete Blood Count w/Auto AM LABS Lab 04/06/23 04:00 Ordered Complete Blood Count w/Auto AM LABS Lab 04/07/23 04:00 Ordered Comprehensive Metabolic Panel AM LABS Lab 04/06/23 04:00 Ordered Comprehensive Metabolic Panel AM LABS Lab 04/07/23 04:00 Ordered Magnesium AM LABS Lab 04/06/23 04:00 Ordered Magnesium AM LABS Lab 04/07/23 04:00 Ordered Phosphorus AM LABS Lab 04/06/23 04:00 Ordered Phosphorus AM LABS Lab 04/07/23 04:00 Ordered Urine Culture Stat Lab 04/04/23 22:43 Received Radiology Impressions Chest X-Ray 04/04/23 13:02 IMPRESSION: No acute findings. Abdomen/Pelvis CT 04/04/23 18:08 IMPRESSION: 1. Large left anterior abdominal wall hernia which contains small bowel with no evidence of strangulation or obstruction. The other ventral hernias remain unchanged. 2. Previously noted fluid collection in the soft tissues above the hernial defect has resolved with residual inflammatory change noted in this region. Laboratory Results WBC 11.70 10^3/uL (3.29-11.43) H 04/05/23 04:57 RBC 3.87 10^6/uL (3.85-5.65) 04/05/23 04:57 Hgb 12.20 g/dL (11.27-16.99) 04/05/23 04:57 Hct 41.6 % (36-47) 04/05/23 04:57 MCV 107.5 fl (85-98) H D 04/05/23 04:57 MCH 31.5 pg (27-33) 04/05/23 04:57 MCHC 29.3 g/dL (30-55) L D 04/05/23 04:57 RDW 15.6 % (12.1-15.1) H 04/05/23 04:57 Plt Count 284 10^3/cmm (157-399) 04/05/23 04:57 MPV 9.1 fL (7.4-10.4) 04/05/23 04:57 Neut % (Auto) 64.7 % 04/05/23 04:57 Lymph % (Auto) 24.9 % 04/05/23 04:57 [place] % (Auto) 7.1 % 04/05/23 04:57 Eos % (Auto) 2.4 % 04/05/23 04:57 Baso % (Auto) 0.4 % 04/05/23 04:57 Neut # (Auto) 7.57 10^3/uL (1.8-7.7) 04/05/23 04:57 Lymph # (Auto) 2.9 10^3/uL (0.8-4.8) 04/05/23 04:57 [place] # (Auto) 0.8 10^3/uL (0.2-0.9) 04/05/23 04:57 Eos # (Auto) 0.3 10^3/uL (0.0-0.8) 04/05/23 04:57 Baso # (Auto) 0.1 10^3/uL (0.0-0.1) 04/05/23 04:57 Nucleated RBC % (auto) 0 % 04/05/23 04:57 Nucleated RBCs # 0.0 /100WBC 04/05/23 04:57 D-Dimer 0.93 ug/mLFEU (0-0.59) H 04/04/23 19:40 Sodium 140 mmol/L (136-145) 04/05/23 04:57 Potassium 4.2 mmol/L (3.5-5.1) 04/05/23 04:57 Chloride 107 mmol/L (98-107) 04/05/23 04:57 Carbon Dioxide 12 mmol/L (22-29) L 04/05/23 04:57 Anion Gap 25.2 (5-19) H 04/05/23 04:57 BUN 29 mg/dL (8-23) H 04/05/23 04:57 Creatinine 1.7 mg/dL (0.5-0.9) H 04/05/23 04:57 GFR Calculation Not Reportable 04/05/23 04:57 Glucose 67 mg/dL (65-115) 04/05/23 04:57 POC Glucose 103 mg/dL (70-110) 04/05/23 12:08 Estimat Average Glucose 128 04/04/23 12:02 Hemoglobin A1c 6.1 % (4.0-6.0) H 04/04/23 12:02 Calculated Osmolality 294 mOsm/kg (285-295) 04/05/23 04:57 Lactic Acid 1.2 mmol/L (0.5-2.2) 04/04/23 19:40 Calcium 9.0 mg/dL (8.5-10.5) 04/05/23 04:57 Phosphorus 3.9 mg/dL (2.5-4.5) 04/05/23 04:57 Magnesium 1.5 mg/dL (1.7-2.3) L 04/05/23 04:57 Total Bilirubin 0.4 mg/dL (0.15-1.2) 04/05/23 04:57 AST 13 U/L (0-32) 04/05/23 04:57 ALT < 5 U/L (0-33) 04/05/23 04:57 Alkaline Phosphatase 89 U/L (35-105) 04/05/23 04:57 Troponin T Baseline 36 ng/L (0-10) H 04/04/23 12:02 Troponin T 120 Minute 37.94 ng/L (0-10) H 04/04/23 14:00 Delta Troponin T 1.94 ABS# (0-10) 04/04/23 14:00 Troponin T Hi Sens 6Hr 26.14 ng/L (0-10) H 04/04/23 19:40 Troponin T Hi Sens 6Hr Delta -9.86 ng/L (0-12) L 04/04/23 19:40 C-Reactive Protein 44.0 mg/L (0.0-4.9) H 04/04/23 19:40 NT-Pro-B Natriuret Pep 621 pg/mL (0-450) H 04/04/23 19:40 Total Protein 5.7 g/dL (6.6-8.7) L 04/05/23 04:57 Albumin 3.1 g/dL (3.5-5.2) L 04/05/23 04:57 Globulin 2.6 g/dL (1.3-4.6) 04/05/23 04:57 Triglycerides 131 mg/dL (0-150) 04/04/23 19:40 Cholesterol 63 mg/dL (0-200) 04/04/23 19:40 LDL Cholesterol, Calc 15 mg/dL (50-129) L 04/04/23 19:40 HDL Cholesterol 22 mg/dL (60-100) L 04/04/23 19:40 LDL/HDL Ratio 0.68 RATIO (0.00-3.22) 04/04/23 19:40 Cholesterol/HDL Ratio 2.86 mg/dL (0.0-4.40) 04/04/23 19:40 Lipase 243 U/L (13-60) H 04/04/23 19:40 Procalcitonin 0.98 ng/mL (0-0.5) H 04/04/23 19:40 TSH 1.73 uIU/mL (0.27-4.20) 04/04/23 19:40 Urine Color Yellow (Yellow) 04/04/23 22:43 Urine Appearance Hazy (CLEAR) A 04/04/23 22:43 Urine pH 5 (5-7) 04/04/23 22:43 Ur Specific [place] 1.015 (1.005-1.030) 04/04/23 22:43 Urine Protein Trace (Negative) 04/04/23 22:43 Urine Glucose (UA) Norm (Normal) 04/04/23 22:43 Urine Ketones 1+ (Negative) H 04/04/23 22:43 Urine Blood Neg (Negative) 04/04/23 22:43 Urine Nitrate Negative (Negative) 04/04/23 22:43 Urine Bilirubin Neg (Negative) 04/04/23 22:43 Urine Urobilinogen Neg mg/dL (Negative) 04/04/23 22:43 Ur Leukocyte Esterase 2+ (Negative) H 04/04/23 22:43 Urine RBC None /hpf (0-2) 04/04/23 22:43 Urine WBC 15-25 /hpf (0-5) H 04/04/23 22:43 Ur Squamous Epith Cells 5-10 /hpf (0-5) H 04/04/23 22:43 Amorphous Sediment 1+ /hpf 04/04/23 22:43 Urine Bacteria 2+ /hpf (NONE) H 04/04/23 22:43 Coarse Granular Casts 0-4 /lpf H 04/04/23 22:43 Coronavirus 229E (PCR) Not detected (NOT DETECT) 04/04/23 22:20 Influenza Type A Ag negative (Negative) 04/04/23 22:20 Influenza Type B Ag negative (Negative) 04/04/23 22:20 SARS-CoV-2 (PCR) Not detected (NOT DETECT) 04/04/23 22:20 Vitals Last Vital Signs Temp 97.5 F L 04/05/23 12:00 Pulse 54 L 04/05/23 12:00 Resp 20 H 04/05/23 12:00 BP 116/46 04/05/23 12:00 Pulse Ox 99 04/05/23 12:00 O2 Del Method Room Air 04/05/23 07:36 FiO2 21 04/04/23 20:59 Discharge Plan Discharge Patient Disposition: Home Condition: Stable Prescriptions: New cefdinir 300 mg capsule 300 mg PO BID 5 Days Qty: 10 0RF Continued pantoprazole 40 mg tablet,delayed release (DR/EC) 40 mg PO DAILY Qty: 90 1RF alprazolam 0.25 mg tablet 0.25 mg PO BID PRN (Reason: Anxiety) Qty: 60 5RF nitroglycerin 0.4 mg tablet, sublingual 0.4 mg sublingual Q5M PRN (Reason: chest pain) Qty: 30 1RF Rx Instructions: do not exceed 3 doses per episode metformin 500 mg tablet 500 mg PO BID atorvastatin 10 mg tablet 10 mg PO QPM metoprolol tartrate 25 mg tablet 25 mg PO BID Discharge Orders: Discharge Order (Routine); Ordered 04/05/23 Ordered By: Edu Petersen Referrals: Alirio Dubon DO [Primary Care Provider] - Discharge Diet: GI Soft Discharge Activity: Resume usual activity Patient Instructions: Opioid Safety Activity Restrictions/Additional Instructions: - Please adhere to GI soft diet -If you have recurrent abdominal pain please go to emergency room -Please hydrate well drink plenty of electrolyte balanced fluids -If you have any recurrent chest pain please go to the emergency room -Please see primary care provider in 24 hours Discharge Attestations Time Spent in Discharge Care*: greater than 30 min Status at Discharge: Cognitive status at discharge: cognitively intact, Behavioral status at discharge: cooperative, Quality Metrics Clinical Quality Measures [ No reported AMI, CVA or VTE this stay] Coding Level of Care Code 12289 Total time (in minutes) for Discharge: 45 Diagnoses Abdominal pain R10.9 Hypertension I10 Diabetes mellitus E11.9 DVT (deep venous thrombosis) I82.409 Chest pain R07.9
== END 2023-04-05 15:20 | disposition home or self-care (01) ==
LOC: ER 12:20 → MEDSURG 04-05 01:56
PROVIDERS: Admitting Provider Family Medicine; Emergency Provider Family Medicine; PCP Family Medicine; Visit Provider Family Medicine
DX: R10.9 Unspecified abdominal pain (principal); K43.9 Ventral hernia without obstruction or gangrene; E87.20 Acidosis, unspecified; K31.84 Gastroparesis; E11.22 Type 2 diabetes mellitus with diabetic chronic kidney disease; I12.9 Hypertensive chronic kidney disease with stage 1 through stage 4 chronic kidney disease, or unspecified chronic kidney disease; N18.9 Chronic kidney disease, unspecified; R07.9 Chest pain, unspecified; Z86.718 Personal history of other venous thrombosis and embolism; Z90.49 Acquired absence of other specified parts of digestive tract; E86.0 Dehydration; R00.1 Bradycardia, unspecified; Z87.891 Personal history of nicotine dependence; Z66 Do not resuscitate; I25.2 Old myocardial infarction; I08.3 Combined rheumatic disorders of mitral, aortic and tricuspid valves
CPT/HCPCS: 36415; 36416; 71045; 74176; 80048; 80053; 80061; 81001; 82962; 83036; 83605; 83690; 83735; 83880; 84100; 84145; 84443; 84484; 85025; 85378; 86140; 87077; 87086; 87186; 87635; 87804; 93005; 93306; 93970; 94664; 96361; 96365; 96372; 96375; 97163; 97165; 99285; G0378; J0696; J1650; J3475; J7030

== ENCOUNTER 2023-04-17 07:58 | Emergency (ER) | payer MEDICARE, SELFPAY ==
[2023-04-17 08:00] VITALS: BP 105/46; PULSE 88; RESP 15; TEMP 37.1; O2SAT 94; BMI 29.2
--- NOTE | 2023-04-17 08:07 | XRR_ITS ---
PROCEDURE INFORMATION: Exam: XR Left Hip Exam date and time: 04/17/2023 8:19 AM Age: 87 years old Clinical indication: Injury or trauma; Fall; Blunt trauma (contusions or hematomas); Left; Hip TECHNIQUE: Imaging protocol: Radiologic exam of the left hip. Views: 2 or 3 views hip with pelvis when performed. COMPARISON: CT abdomen pelvis wo con [id number] 04/04/2023 6:48 PM FINDINGS: Bones/joints: There is osteopenia present. There is no evidence of acute fracture. There is mild osteoarthritis consisting of joint space narrowing and periarticular spurring. Soft tissues: Unremarkable. Vasculature: Vascular calcifications are noted. XR/XR hip LT 2-3V wo/w pel* [id number] IMPRESSION: 1. No evidence of acute fracture. The bones are osteopenic limiting the sensitivity of radiography. 2. Mild left hip osteoarthritis.
--- NOTE | 2023-04-17 08:07 | XRR_ITS ---
PROCEDURE INFORMATION: Exam: XR Left Shoulder Exam date and time: 04/17/2023 8:14 AM Age: 87 years old Clinical indication: Injury or trauma; Fall; Blunt trauma (contusions or hematomas); Shoulder; Left TECHNIQUE: Imaging protocol: Radiologic exam of the left shoulder. Views: 2 or more views. COMPARISON: CR (CHEST, ) 04/04/2023 1:08 PM FINDINGS: Bones/joints: There is [id number] osteoarthritis of the glenohumeral joint consisting of joint space narrowing and periarticular spurring. There is mild hypertrophy of the acromioclavicular joint. There is no evidence of acute fracture or dislocation. Soft tissues: Normal. XR/XR shoulder LT min 2V* [id number] IMPRESSION: Left shoulder osteoarthritis. No evidence of acute fracture or dislocation.
--- NOTE | 2023-04-17 08:09 | CTR_ITS ---
PROCEDURE INFORMATION: Exam: CT Cervical Spine Without Contrast Exam date and time: 04/17/2023 8:35 AM Age: 87 years old Clinical indication: Injury or trauma; Fall; Blunt trauma TECHNIQUE: Imaging protocol: Computed tomography of the cervical spine without contrast. Radiation optimization: All CT scans at this facility use at least one of these dose optimization techniques: automated exposure control; mA and/or kV adjustment per patient size (includes targeted exams where dose is matched to clinical indication); or iterative reconstruction. REPORTING DATA: Count of CT and Cardiac NM exams in prior 12 months: This patient has received 2 known CTs and 0 known cardiac nuclear medicine studies in the 12 months prior to the current study. COMPARISON: CT cervical spin wo con* [id number] 10/22/2020 6:40 PM RADIATION DOSE METRICS: Total DLP (mGy-cm): 524.8 FINDINGS: Bones/joints: No acute fracture. There is slight grade 1 anterolisthesis of C4 on C5 and C7 on T1. There is moderate to advanced degenerative disc disease at C6-C7. Stable marked asymmetric right hypertrophic changes are identified along the right atlantodental joint. There is straightening of cervical lordosis. The spinal canal appears patent. Lungs: Lung apices are normal. Soft tissues: Unremarkable. CT/CT cervical spin wo con* [id number] IMPRESSION: No acute findings.
--- NOTE | 2023-04-17 08:09 | CTR_ITS ---
PROCEDURE INFORMATION: Exam: CT Head Without Contrast Exam date and time: 04/17/2023 8:35 AM Age: 87 years old Clinical indication: Injury or trauma; Fall; Blunt trauma (contusions or hematomas) TECHNIQUE: Imaging protocol: Computed tomography of the head without contrast. Radiation optimization: All CT scans at this facility use at least one of these dose optimization techniques: automated exposure control; mA and/or kV adjustment per patient size (includes targeted exams where dose is matched to clinical indication); or iterative reconstruction. REPORTING DATA: Count of CT and Cardiac NM exams in prior 12 months: This patient has received 2 known CTs and 0 known cardiac nuclear medicine studies in the 12 months prior to the current study. COMPARISON: CT head wo con* [id number] 10/22/2020 6:37 PM RADIATION DOSE METRICS: Total DLP (mGy-cm): 933.3 FINDINGS: Brain: There is mild small vessel disease. There is no evidence of acute parenchymal hemorrhage, extra-axial collection, or acute infarction. There is no mass effect, midline shift, or downward herniation. Cerebral ventricles: No ventriculomegaly. Paranasal sinuses: There is bilateral sphenoid sinus disease again noted. Mastoid air cells: Visualized mastoid air cells are well aerated. Bones/joints: Unremarkable. No acute fracture. Soft tissues: Unremarkable. CT/CT head wo con* [id number] IMPRESSION: Mild small vessel disease. No evidence of acute intracranial process.
--- NOTE | 2023-04-17 08:16 | ED_ITS ---
HPI - Extremity Problem General: Chief complaint: Extremity Injury, Lower Stated complaint: LEFT HIP PAIN S/P FALL Time Seen by Provider: 04/17/23 07:58 Source: patient, family and EMS Mode of arrival: EMS Limitations: no limitations History of Present Illness: 87-year-old female is here with EMS that did tripped and fell this morning she had fell onto the wall hit her left hip she complains of left hip pain along with shoulder pain and mild headache and neck pain. She not been amatory since the event she did receive pain meds in route had no LOC. Associated symptoms: Deny chest pain, fever(s) or rash Review of Systems Const: Denies: fever(s), chills, body aches or change in appetite ENMT: Denies: throat pain or dental pain Card: Denies: chest pain Resp: Denies: dyspnea GI: Denies: abdominal pain, nausea, vomiting or diarrhea Musc: Reports: neck pain; Denies: back pain Skin/Breast: Denies: rash Neuro: Reports: headache(s) PFSH ED PFSH: Medical History Abnormal stress test Acid reflux Carotid stenosis Cataract Diabetes mellitus Diverticulitis GI bleed Hypertension Migraine NSTEMI (non-ST elevated myocardial infarction) T3 vertebral fracture TIA (transient ischemic attack) Ventral incisional hernia without obstruction or gangrene Vertigo Surgical History H/O colectomy History of appendectomy History of cholecystectomy History of right-sided carotid endarterectomy Family History Mother Hypertension Brother Aneurysm Sister Aneurysm Social History Smoking and tobacco/nicotine status: former use of tobacco/nicotine Alcohol intake: never Substance/Drug Use: never Physical Exam Const: COMMON NORMALS: patient oriented x3 HENMT: COMMON NORMALS: normocephalic and atraumatic HEAD & SCALP: normocephalic and atraumatic Eye: COMMON NORMALS: Equal, round and reactive pupils present and EOMs intact bilaterally PUPIL: Yes Equal, round and reactive pupils present Neck/C-Spine: COMMON NORMALS: supple Chest: COMMONS NORMALS: normal inspection of the chest and normal palpation of entire chest wall Resp: COMMON NORMALS: normal respiratory effort, No retractions, No use of accessory muscles and clear to auscultation bilaterally AUSCULTATION: clear to auscultation bilaterally Cardio: COMMON NORMALS: regular rate, regular rhythm and No murmurs present (Cardio) RATE: regular rate RHYTHM: regular rhythm GI: COMMON NORMALS: Normal to inspection, nondistended, normoactive bowel sounds present, Soft to palpation, non-tender and no masses PALPATION: Yes Soft to palpation Extremity: COMMON NORMALS: full ROM NARRATIVE EXTREMITY EXAM: Slight tenderness to left hip left shoulder no obvious deformities distal pulses intact Neuro: COMMON NORMALS: patient oriented x3, moves all extremities and no focal motor deficits Psych: COMMON NORMALS: mental status grossly normal, Normal thought process present and cooperative THOUGHT PROCESS: Normal thought process present Skin: COMMON NORMALS: no rashes or lesions noted and no wounds GENERAL SKIN EXAM: no rashes or lesions noted Course Vital Signs: Vital signs: Vital Signs Temperature 98.8 F 04/17/23 08:00 Pulse Rate 88 04/17/23 08:00 Respiratory Rate 15 04/17/23 08:00 Blood Pressure 121/49 04/17/23 09:05 Pulse Oximetry 100 04/17/23 09:05 Oxygen Delivery Me thod Room Air 04/17/23 09:05 MDM - Extremity (Nontraumatic) Medical Decision Making Patient presents here with hip pain from a fall she also hit her head and had some shoulder pain all her imaging here is normal she is stable for discharge with family return if worsening. Medical Records I reviewed the patient's medical records. Lab Data I reviewed the patient's lab results. Radiology Impressions Hip/Pelvis X-Ray 04/17/23 08:07 IMPRESSION: 1. No evidence of acute fracture. The bones are osteopenic limiting the sensitivity of radiography. 2. Mild left hip osteoarthritis. Shoulder X-Ray 04/17/23 08:07 IMPRESSION: Left shoulder osteoarthritis. No evidence of acute fracture or dislocation. Cervical Spine CT 04/17/23 08:09 IMPRESSION: No acute findings. Head CT 04/17/23 08:09 IMPRESSION: Mild small vessel disease. No evidence of acute intracranial process. Hip CT 04/17/23 08:27 IMPRESSION: 1. No evidence of acute fracture. 2. [id number] left hip osteoarthritis. All radiology interpretation(s) finalized by discharge Discharge Plan Discharge Patient Disposition: Home Clinical Impression: Fall, Contusion of left hip Condition: Stable Prescriptions: No Action pantoprazole 40 mg tablet,delayed release (DR/EC) 40 mg PO DAILY Qty: 90 1RF alprazolam 0.25 mg tablet 0.25 mg PO BID PRN (Reason: Anxiety) Qty: 60 5RF nitroglycerin 0.4 mg tablet, sublingual 0.4 mg sublingual Q5M PRN (Reason: chest pain) Qty: 30 1RF Rx Instructions: do not exceed 3 doses per episode metformin 500 mg tablet 500 mg PO BID atorvastatin 10 mg tablet 10 mg PO QPM metoprolol tartrate 25 mg tablet 25 mg PO BID Discharge Orders: Discharge ED (Routine); Ordered 04/17/23 Ordered By: Marija Ferrera Referrals: Alirio Dubon, [Primary Care Provider] - 1-3 days Discharge Diet: Advance as tolerated Discharge Activity: Resume usual activity Patient Instructions: Contusion in Adults (ED), Fall Prevention (ED) Coding Level of Care Code ED Active Directory Specialist for Rocio Salmeron
--- NOTE | 2023-04-17 08:27 | CTR_ITS ---
PROCEDURE INFORMATION: Exam: CT Left Lower Extremity Without Contrast, Hip Exam date and time: 04/17/2023 8:39 AM Age: 87 years old Clinical indication: Injury or trauma; Fall; Blunt trauma; Hip; Left TECHNIQUE: Imaging protocol: CT of the left lower extremity without contrast was performed. Exam focused on the hip. Radiation optimization: All CT scans at this facility use at least one of these dose optimization techniques: automated exposure control; mA and/or kV adjustment per patient size (includes targeted exams where dose is matched to clinical indication); or iterative reconstruction. REPORTING DATA: Count of CT and Cardiac NM exams in prior 12 months: This patient has received 2 known CTs and 0 known cardiac nuclear medicine studies in the 12 months prior to the current study. COMPARISON: CR (PELVIS, ) 04/17/2023 8:19 AM RADIATION DOSE METRICS: Total DLP (mGy-cm): 271.78 FINDINGS: Bones/joints: There is osteopenia present. There is no evidence of acute fracture. There is [id number] left hip osteoarthritis consisting of joint space narrowing and periarticular spurring. Soft tissues: Normal. Vasculature: Vascular calcifications are noted. CT/CT hip LT wo con* [id number] IMPRESSION: 1. No evidence of acute fracture. 2. [id number] left hip osteoarthritis.
[2023-04-17 09:05] VITALS: BP 121/49; O2SAT 100
== END 2023-04-17 09:51 | disposition home or self-care (01) ==
PROVIDERS: Emergency Provider Emergency Medicine; PCP Family Medicine
DX: S70.02XA Contusion of left hip, initial encounter (principal); Z79.84 Long term (current) use of oral hypoglycemic drugs; Z87.891 Personal history of nicotine dependence; E11.9 Type 2 diabetes mellitus without complications; I10 Essential (primary) hypertension; I25.2 Old myocardial infarction; Z86.73 Personal history of transient ischemic attack (TIA), and cerebral infarction without residual deficits; W01.0XXA Fall on same level from slipping, tripping and stumbling without subsequent striking against object, initial encounter
CPT/HCPCS: 70450; 72125; 73030; 73502; 73700; 99284